=== PATIENT | female | born 1975 | race Caucasian/White ===

== ENCOUNTER 2018-08-29 11:23 | Inpatient (IN) | payer OTHER ==
[2018-08-29] VITALS (22 sets, daily range): BP systolic 85–150; BP diastolic 53–88
[~2018-08-29] VITALS: Ht 165.1 cm; Wt 77.3 kg
[2018-08-29 11:51] LABS: BE(vivo) 8.2 mmol/L (-2 to +3); HCO3 38.6 mmol/L (22.0-26.0); PCO2 88.3 mmHg (35.0-45.0); PO2 418.5 mmHg (80.0-100.0); pH 7.259 (7.360-7.450); sO2 99.8 % (92.0-98.0)
[2018-08-29 12:03] LABS: ABSOLUTE NEUTROPHILS 6.9 thou/uL (1.4-8.2); BASOPHILS 0.5 % (0.0-2.0); HEMATOCRIT 38.5 % (37.0-47.0); HEMOGLOBIN 12.5 gm/dL (12.0-15.0); LYMPHOCYTES 5.4 % (24.0-44.0); MCH 28.9 pg (26.0-34.0); MCHC 32.4 g/dL (28.0-37.0); MCV 89.2 fL (80.0-100.0); MONOCYTES 7.3 % (1.0-8.0); PLATELET COUNT 269 thou/uL (150-400); POLYS 86.8 % (36.0-66.0); RBC 4.32 mil/uL (4.20-5.00); RDW 17.7 % (10.5-14.5)
[2018-08-29 12:10] LABS: ANION GAP 3 mmol/L (7-16); BUN 8 mg/dL (7-18); CALCIUM 9.2 mg/dL (8.5-10.1); CHLORIDE 94 mmol/L (98-107); CO2 40 mmol/L (21-32); CREATININE 0.5 mg/dL (0.6-1.0); GLUCOSE 154 mg/dL (74-106); SODIUM 137 mmol/L (136-145)
[2018-08-29 12:18] LABS: TROPONIN-I <0.06 ng/mL (<0.06)
[2018-08-29 13:36] LABS: BE(vivo) 13.8 mmol/L (-2 to +3); HCO3 43.1 mmol/L (22.0-26.0); PCO2 81.1 mmHg (35.0-45.0); PO2 72.1 mmHg (80.0-100.0); pH 7.343 (7.360-7.450); sO2 92.8 % (92.0-98.0)
[2018-08-29] MEDS ORDERED: INCRUSE ELLI62.5 MCG INH (15:21)
[2018-08-29] MEDS ORDERED: GABAPENTIN 100100 MG PO (15:22)
[2018-08-29] MEDS ORDERED: ROXICODONE5 M2 PO (15:23)
[2018-08-29] MEDS ORDERED: AMBIEN 10 MG TA10 MG PO (15:32)
--- NOTE | 2018-08-29 17:16 | EKG ---
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 : 1975 Requested By: James Mares Order Number: [id number] MD: Placido Ramires Measurements Intervals [place] Rate: 113 P: 78 DC: 124 QRS: -10 QRSD: 93 T: 62 QT: 331 QTc: 454 Interpretive Statements Sinus tachycardia No previous ECG available for comparison Electronically Signed On 08-29-2018 17:16:31 CDT by Placido Ramires [email or web address] ��������������������������������������������� <ELECTRONICALLY SIGNED> ���������������������������������������� By: Placido Ramires MD ��������������������������������������������� 08/29/18 1716 1125 1125 Placido Ramires MD /MITZY
[2018-08-30] VITALS (37 sets, daily range): BP systolic 91–174; BP diastolic 57–110
[2018-08-30 05:06] LABS: HEMATOCRIT 33.7 % (37.0-47.0); HEMOGLOBIN 10.9 gm/dL (12.0-15.0); MCH 28.9 pg (26.0-34.0); MCHC 32.4 g/dL (28.0-37.0); MCV 89.2 fL (80.0-100.0); RBC 3.77 mil/uL (4.20-5.00); RDW 17.9 % (10.5-14.5)
[2018-08-30 05:20] LABS: CALCIUM 8.9 mg/dL (8.5-10.1); CREATININE 0.6 mg/dL (0.6-1.0); POTASSIUM 3.5 mmol/L (3.5-5.1)
--- NOTE | 2018-08-30 05:42 | NUR ---
ASSUMED PT CARE AT 1900 WITH NO SIGN OF DISTRESS NOTED IN PT. PT IS SLEEPING AND RESTING COMFORTABLY. PT IS ON BIPAP AND WILL CONTINUE TO MONITOR FOR ANY SIGN OF RESPIRATORY DISTRESS. SCHEDULED MEDS ADMINSTERED TO PT. PT CONTINUES TO BE ON BIPAP THROUGHOUT THE NIGHT. DENIES ANY NEEDS AT THIS TIME.
--- NOTE | 2018-08-30 14:26 | NUR ---
CM ASSESSMENT: CASE OPENED FOR DC PLANNING. CLINICAL INFO REVIEWED. PT ADMIT WITH COPD EXACERBATION AND CURRENTLY ON CONTINUOUS BIPAP WITH HIGH CO2. MET WIHT PT WHO IS ALERT AND ORINIENTED X4 AND ABLE TO COMMUNICATE THRU BIPAP. PT STATES SHE LIVES IN AL APT AT [facility], JUST MOVED IN 08/22/18. PT INDICATES SHE WAS LIVING IN HOME WITH S.O. BUT HE 03/2018. PT'S MOTHER ALSO APPROX A YEAR AGO. INDEPENDENT WITH ADLS, USES HME NOC O2 2 L NC AND CANE. NOT SURE ABOUT HH. PT IS MEDICALLY DISABLED FROM PTSD, BIPOLAR II, AND COPD AND HAS CASEWORKED THRU REDISCOVER NAMED KAMI [phone]. VM LEFT FOR TRANSMISSION AND PROTECTION ENGINEER WITH CM CONTACT. UPDATE TO CARMELO AT [facility] AND SPOKE WITH MARC AT [facility] RCF. PT/OT ORDERED. MAY NEED SKILELD STAY IF HAS DAYS AVAILABLE THRU MEDICARE BENEFIT. NO WEEKEND DC PER HOSPITALIST.
--- NOTE | 2018-08-30 18:21 | NUR ---
Assumed care of patient at 0700. Patient is awake through the day, somewhat restless with bipap but able to keep it in place. Requests frequent breaks for drinks and food, however desats quickly; only tolerating about 5-10 minutes off bipap. Loose cough with little to no sputum production. C/o chronic pain to hips and shoulders. No family at bedside today. Continue to monitor.
--- NOTE | 2018-08-30 23:45 | NUR ---
Assumed care of this pt at 2300. She is currently on BIPAP due to respiratory distress. Labor breathing notes. RR in high 20's at rest. She is able to maintain her O2 sat at this time. She appears to be very anxious upon my assessment. This RN discussed with pt regarding her code status. She is agreed to be intubate if her breathing became worsen. Will continue to monitor her closely.
--- NOTE | 2018-08-30 23:59 | NUR ---
REPORT GIVEN TO SONA RN AT 9647
[2018-08-31] VITALS (77 sets, daily range): BP systolic 84–151; BP diastolic 54–106
--- NOTE | 2018-08-31 00:10 | NUR ---
Pt became more restless and agitated. Increasing WOB and SOA. RR in mid 30's. O2 sat mid 90's on BIPAP. Lung sound more wheezing all over lung field.Will obtain ABG stat.
[2018-08-31 00:25] LABS: BE(vivo) 15.3 mmol/L (-2 to +3); HCO3 48.2 mmol/L (22.0-26.0); PCO2 120.1 mmHg (35.0-45.0); PO2 87.9 mmHg (80.0-100.0); pH 7.221 (7.360-7.450); sO2 93.8 % (92.0-98.0)
--- NOTE | 2018-08-31 01:30 | NUR ---
This RN called result of Abnormal ABG to ; order to intubate pt. Will notify ER physician to assist with intubation.
--- NOTE | 2018-08-31 01:40 | NUR ---
Notified who listed as pt's represent regarding of her condition became detoriorates. She is awares of procedure.
[2018-08-31 01:44] LABS: BE(vivo) 8.9 mmol/L (-2 to +3); HCO3 39.8 mmol/L (22.0-26.0); PO2 85.9 mmHg (80.0-100.0); sO2 93.9 % (92.0-98.0)
[2018-08-31 01:45] LABS: PCO2 97.9 mmHg (35.0-45.0); pH 7.227 (7.360-7.450)
[2018-08-31 02:23] LABS: HEMATOCRIT 35.9 % (37.0-47.0); HEMOGLOBIN 11.3 gm/dL (12.0-15.0); MCH 28.7 pg (26.0-34.0); MCHC 31.4 g/dL (28.0-37.0); MCV 91.6 fL (80.0-100.0); RBC 3.93 mil/uL (4.20-5.00); RDW 18.1 % (10.5-14.5); WBC 7.3 thou/uL (4.0-11.0)
[2018-08-31 02:38] LABS: CALCIUM 8.8 mg/dL (8.5-10.1); CREATININE 0.4 mg/dL (0.6-1.0)
[2018-08-31 02:42] LABS: POTASSIUM 4.8 mmol/L (3.5-5.1)
--- NOTE | 2018-08-31 04:00 | NUR ---
THIS RN CONTACTED [facility] STAFF REGARDING OF HER MEDICAL RECORDS AND MED LISTS. WILL UPDATES INFOMATION ONCE THEY FAX INFORMATION TO ME.
[2018-08-31 04:47] LABS: CALCIUM 9.2 mg/dL (8.5-10.1); CREATININE 0.6 mg/dL (0.6-1.0); MAGNESIUM 1.9 mg/dL (1.8-2.4)
[2018-08-31] MEDS ORDERED: CYMBALTA60 MG PO (05:31)
[2018-08-31] MEDS ORDERED: CHLORTHALIDONE25 MG PO (05:31)
[2018-08-31] MEDS ORDERED: AVAPRO 150 MG150 M1 PO (05:31)
[2018-08-31] MEDS ORDERED: ZYPREXA20 MG PO (05:32)
--- NOTE | 2018-08-31 07:00 | NUR ---
Pt remains stable . Continue to be on vent and lightly sedated with propofol gtt. Able to wean down FiO2 to 30% this am. RT will obtain ABG later on this am.
[2018-08-31 07:31] LABS: BE(vivo) 12.4 mmol/L (-2 to +3); HCO3 40.1 mmol/L (22.0-26.0); PCO2 68.1 mmHg (35.0-45.0); PO2 69.2 mmHg (80.0-100.0); pH 7.388 (7.360-7.450)
--- NOTE | 2018-08-31 07:32 | NUR ---
THIS RN ATTEMPTED TO REACH HER BROTHER WHO LISTED HER DPOA. NUMBERS PROVIDED FROM ND IT WAS PUT IN INCORRECTLY. 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 SHE COULDN'T PROVIDE HIS NUMBER EITHER. UPDATES AM SHIFT RN ABOUT MY ACTIONS.
[2018-08-31 12:43] LABS: BE(vivo) 13.8 mmol/L (-2 to +3); HCO3 43.2 mmol/L (22.0-26.0); sO2 94.6 % (92.0-98.0)
[2018-08-31 12:44] LABS: PCO2 84.4 mmHg (35.0-45.0); pH 7.327 (7.360-7.450)
--- NOTE | 2018-08-31 13:59 | NUR ---
Per patient's request, this RN contacted patient's father via phone, Ha Jolynn Lamb. Updated on patients condition including needing to be intubated last night. He provided information that patient has been hospitalized more than 20 times in the last year at [facility], including [facility], [facility], and [facility]. She has needed to be intubated in the past. He states he just lost his (patient's mother) and is unable to visit today. Patient has also been followed by [facility] in [facility], as well as [facility]. Will obtain medical records per MD requests. Continue to monitor.
--- NOTE | 2018-08-31 20:01 | NUR ---
Assumed care of patient at 0700. Patiend intubated overnight. Remains on vent for day shift, no weaning. Increased propofol and adding PRN morphine for comfort. Urine output fair, dark yellow/tea colored. Goal to let patient rest. Continue to monitor.
[2018-09-01] VITALS (45 sets, daily range): BP systolic 88–125; BP diastolic 56–86
[2018-09-01 05:06] LABS: HEMATOCRIT 33.2 % (37.0-47.0); HEMOGLOBIN 10.8 gm/dL (12.0-15.0); MCH 29.1 pg (26.0-34.0); MCHC 32.3 g/dL (28.0-37.0); MCV 90.1 fL (80.0-100.0); RBC 3.69 mil/uL (4.20-5.00); RDW 17.9 % (10.5-14.5); WBC 4.8 thou/uL (4.0-11.0)
[2018-09-01 05:13] LABS: CALCIUM 9.3 mg/dL (8.5-10.1); CREATININE 0.5 mg/dL (0.6-1.0); POTASSIUM 4.1 mmol/L (3.5-5.1)
[2018-09-01 05:36] LABS: BE(vivo) 12.4 mmol/L (-2 to +3); HCO3 40.7 mmol/L (22.0-26.0); PO2 69.4 mmHg (80.0-100.0); pH 7.355 (7.360-7.450); sO2 92.4 % (92.0-98.0)
[2018-09-01 05:39] LABS: PCO2 74.5 mmHg (35.0-45.0)
--- NOTE | 2018-09-01 06:36 | NUR ---
No event tonight. Pt remains stable in this shift. See VS and assessments per electronics.
--- NOTE | 2018-09-01 16:54 | NUR ---
PATIENT ASSESSMENTS AND VITAL SIGNS DOCUMENTED. SHE IS ABLE TO NOD YES/NO TO SIMPLE QUESTIONS. SHE IS ABLE TO EXPRESS PAIN AND NOD YES/NO TO LOCATION. SHE FOLLOWS COMMANDS. WHEN LEFT ALONE, SHE RESTS. PLAN OF CARE IS TO CONTINUE TO MONITOR PATIENT VITAL SIGNS AND ASSESSMENTS, TURN Q2 HOURS, ORAL CARE Q2 HOURS, MONITOR FOR PAIN AND PAIN RELIEF. NURSE TO CONTINUE TO MONITOR PATIENT STATUS.
--- NOTE | 2018-09-01 17:37 | NUR ---
PATIENT SAT UP IN BED THEN LAID BACK DOWN AND STARTED TO DROP HER OXYGENATION LEVELS. NURSE NOTED THIS AND NOTIFIED RT. HE BAGGED HER AND HER OXYGENATIONS INCREASED. SHE WAS A TONE OF PURPLE, HOWEVER WITH BAGGING HER SHE RETURNED TO A MORE NORMAL COLOR. ET TUBE IS IN PLACE AT 23 AT THE LIP. EQUAL CHEST EXPANSION IS NOTED. HEART RATE INCREASED INTO THE 150 BPM. MORPHINE GIVEN TO SEE IF IT HELPS WITH HER AIR HUNGER AND RESPIRATORY RATE/RHYTHM, HEART RATE. BLOOD PRESSURE DOCUMENTED. NURSE TO CONTINUE TO MONITOR HER WHILE RT IS WITH HER ALSO.
[2018-09-01 18:10] LABS: BE(vivo) 7.5 mmol/L (-2 to +3); PCO2 80.4 mmHg (35.0-45.0); PO2 250.8 mmHg (80.0-100.0); pH 7.281 (7.360-7.450); sO2 99.4 % (92.0-98.0)
--- NOTE | 2018-09-01 19:54 | NUR ---
I have reviewed the documentation by Pravin Streeter from 09/01/18 07 to 09/01/181953 and I concur with it.
[2018-09-02] VITALS (23 sets, daily range): BP systolic 85–111; BP diastolic 52–75
[2018-09-02 05:16] LABS: HEMATOCRIT 29.9 % (37.0-47.0); HEMOGLOBIN 10.1 gm/dL (12.0-15.0); MCH 29.4 pg (26.0-34.0); MCHC 33.6 g/dL (28.0-37.0); MCV 87.5 fL (80.0-100.0); RBC 3.42 mil/uL (4.20-5.00); RDW 19.6 % (10.5-14.5); WBC 8.7 thou/uL (4.0-11.0)
[2018-09-02 05:20] LABS: BE(vivo) 9.7 mmol/L (-2 to +3); HCO3 37.7 mmol/L (22.0-26.0); PO2 85.2 mmHg (80.0-100.0); pH 7.345 (7.360-7.450); sO2 95.5 % (92.0-98.0)
[2018-09-02 05:21] LABS: PCO2 70.7 mmHg (35.0-45.0)
--- NOTE | 2018-09-02 06:00 | NUR ---
REMAINS INTUBATED And sedate WITH PROPOFL. BECOMES VERY RESTLESS AT TIMES. SINUS RHYTHM. RESTRAINED. AFEBRILE. DNR. 200 CC DARK BROWN SLUDGE URINE OUTPUT THIS SHIFT. WILL CONT TO MONITOR.
[2018-09-02 06:10] LABS: CREATININE 0.9 mg/dL (0.6-1.0); POTASSIUM 4.5 mmol/L (3.5-5.1)
--- NOTE | 2018-09-02 10:20 | 2DMMODE ---
[facility] [address] [place] [address] 2 D/M-MODE ECHOCARDIOGRAM Name: MIGUEL COLEMAN Room #: 240-P ADM IN M.R.#: [id number] ������������� Admission: 08/29/18 ������������� Attend Phys: Kamran Negrete MD Discharge: ��� ������������� ��� Date of : 71 Date of Service: 09/02/18 1020 �� Report #: [id number] �������� ��������������������������������������������[id number] THIS REPORT FOR: //name// APPROVED REPORT Study performed: 09/02/2018 08:43:24 EXAM: Comprehensive 2D, Doppler, and color-flow Echocardiogram Patient Location: ICU Room #: 240 Status: routine BSA: 1.84 HR: 70 bpm BP: 96/64 mmHg Rhythm: NSR Other Information Study Quality: Adequate Indications COPD SOA, r/o valvular disease 2D Dimensions RVDd: 37.61 mm IVSd: 9.42 (7-11mm) LVOT Diam: 20.79 (18-24mm) LVDd: 39.89 mm PWd: 10.24 (7-11mm) LVDs: 32.30 (25-40mm) Aortic Root: 26.40 mm IVC: 17.00 mm Volumes Left Atrial Volume (Systole) Single Plane 4CH: 37.34 mL Single Plane 2CH: 32.40 mL LA ESV Index: 21.00 mL/m2 Aortic Valve AoV Peak Nilesh.: 1.16 m/s AO Peak Gr.: 5.39 mmHg LVOT Max P.35 mmHg LVOT Max V: 0.91 m/s KAT Vmax: 2.67 cm2 Mitral Valve E/A Ratio: 0.8 MV Decel. Time: 246.74 ms [facility] [address] [place] [address] 2 D/M-MODE ECHOCARDIOGRAM Name: MIGUEL COLEMAN Room #: 240-P [facility] IN ..#: [id number] ������������� Admission: 08/29/18 ������������� Attend Phys: Kamran Negrete MD Discharge: ��� ������������� ��� Date of : 71 Date of Service: 09/02/18 1020 �� Report #: [id number] �������� ��������������������������������������������[id number] MV E Max Nilesh.: 0.65 m/s MV A Nilesh.: 0.80 m/s MV PHT: 71.55 ms IVRT: 92.27 ms Pulmonary Valve PV Peak Nilesh.: 0.86 m/s PV Peak Gr.: 2.94 mmHg Tricuspid Valve TR Peak Nilesh.: 2.71 m/s RAP Estimate: 10.00 mmHg TR Peak Gr.: 29.31 mmHg PA Pressure: 39.00 mmHg Left Ventricle The left ventricle is normal size. There is normal left ventricular wall thickness. Left ventricular systolic function is mildly decreased. LVEF is 40-45%. Mild diastolic dysfunction is present (impaired relaxation pattern). Right Ventricle Right ventricle is mildly dilated. Right ventricle is mildly hypokinetic. Atria The left atrium size is normal. The right atrium size is normal. Aortic Valve The aortic valve is normal in structure. No aortic regurgitation is present. There is no aortic valvular stenosis. Mitral Valve The mitral valve is normal in structure. There is no mitral valve regurgitation noted. No evidence of mitral valve stenosis. Tricuspid Valve The tricuspid valve is normal in structure. Trace to mild tricuspid regurgitation. PAP is estimated at 39 mmHg. Pulmonic Valve The pulmonary valve is normal in structure. There is no pulmonic valvular regurgitation. Great Vessels The aortic root is normal in size. IVC is normal in size and collapses <50% with inspiration. [facility] [address] [place] [address] 2 D/M-MODE ECHOCARDIOGRAM Name: MIGUEL COLEMAN Room #: 240-P ADM IN M.R.#: [id number] ������������� Admission: 08/29/18 ������������� Attend Phys: Kamran Negrete MD Discharge: ��� ������������� ��� Date of : 71 Date of Service: 09/02/18 1020 �� Report #: [id number] �������� ��������������������������������������������[id number] Pericardium There is no pericardial effusion. <Conclusion> The left ventricle is normal size. LVEF is 40-45%. Right ventricle is mildly dilated. Right ventricle is mildly hypokinetic. The aortic valve is normal in structure. The mitral valve is normal in structure. The tricuspid valve is normal in structure. Trace to mild tricuspid regurgitation. PAP is estimated at 39 mmHg. The pulmonary valve is normal in structure. There is no pericardial effusion. ��������������������������������������������� <ELECTRONICALLY SIGNED> ���������������������������������������� By: Jose Juan Sampson MD ��������������������������������������������� 09/02/18 1020 1020 1020 Jose Juan Sampson MD /INF
--- NOTE | 2018-09-02 15:37 | NUR ---
Patient family updated today as they inquired. Assessments and vital signs as documented. Oral care performed. She is able to nod if she is in pain or not. She is able to follow commands intermittently. Plan of care is to continue to monitor patient vital signs, assessments, and weaning trial. She have very shallow respirations during cpap trial and turned dark red/blue during it. She was working to breath. Nurse to continue to monitor patient status.
--- NOTE | 2018-09-02 16:17 | NUR ---
PT. RESIDES AT [facility] FAXED CLINICAL UPDATE TO FACILITY LEFT MS WITH CARMELO IN ADM, THAT UPDATE FAXED. DCP TO FOLLOW.
--- NOTE | 2018-09-02 20:45 | NUR ---
GCS 10. OPENS EYES TO VOICE, NONVERBAL D/T ET TUBE. FC, WIGGLES TOES, FOOD SERVICE MANAGER HANDS, AND ANSWERS SIMPLE Y/N QUESTIONS WHEN SEDATION DECREASED. WHEN PT NOT ADEQUATELY SEDATED, RESPIRATORY EFFORT INCREASES. BUE RESTRAINTS. SINUS RHYTHM ON MONITOR. HYPOTENSIVE AT TIMES. LUNGS DIMINISHED TO AUSCULTATION. VITAL SIGNS AND ASSESSMENTS DOCUMENTED. WILL CONTINUE TO MONITOR.
[2018-09-03] VITALS (51 sets, daily range): BP systolic 79–157; BP diastolic 48–91
[2018-09-03 05:16] LABS: HEMATOCRIT 29.6 % (37.0-47.0); HEMOGLOBIN 9.6 gm/dL (12.0-15.0); MCHC 32.5 g/dL (28.0-37.0); MCV 89.3 fL (80.0-100.0); RBC 3.32 mil/uL (4.20-5.00); RDW 17.3 % (10.5-14.5); WBC 4.9 thou/uL (4.0-11.0)
[2018-09-03 05:23] LABS: CREATININE 0.6 mg/dL (0.6-1.0); POTASSIUM 3.9 mmol/L (3.5-5.1)
[2018-09-03 11:47] LABS: BE(vivo) 13.7 mmol/L (-2 to +3); PO2 92.3 mmHg (80.0-100.0); pH 7.372 (7.360-7.450); sO2 96.5 % (92.0-98.0)
[2018-09-03 12:00] LABS: PCO2 73.9 mmHg (35.0-45.0)
--- NOTE | 2018-09-03 18:29 | NUR ---
PT CONT ON VENT, CPAP TRIAL FOR 3 HOURS, CO2 CONT TO BE ELEVATED, PT PUT BACK ON ASSIST CONTROL. PROPOFOL REMAINS FOR SEDATION, PT FOLLOWS COMMANDS AND ANSWERS Y/N QUESTIONS. PT HAD ONE LARGE MUCOUS STOOL. OG TO LIS.
--- NOTE | 2018-09-03 21:10 | NUR ---
GCS 10. OPENS EYE TO VOICE, MOUTHS WORDS ABLE, FOLLOWS COMMANDS. ORIENTED TO PERSON AND SITUATION. SEDATION WITH PROPOFOL. PT IS CALM AND COOPERATIVE. DOES NOT PULL ON/INTERFERE WITH LINES AND ET TUBE. SINUS RHYTHM ON MONITOR. HYPOTENSIVE. LARGE VOLUME CLEAR ORAL SECRETIONS. FREQUENT ORAL SUCTION REQUIRED. SOA WITH MILD EXERTION. GARCÍA TO DD. SEDIMENT NOTED. VITAL SIGNS AND ASSESSMENTS DOCUMENTED. WILL CONTINUE TO MONITOR.
[2018-09-04] VITALS (41 sets, daily range): BP systolic 81–165; BP diastolic 52–101
[2018-09-04 04:34] LABS: BE(vivo) 15.2 mmol/L (-2 to +3); HCO3 41.7 mmol/L (22.0-26.0); PCO2 63.7 mmHg (35.0-45.0); PO2 102.9 mmHg (80.0-100.0); pH 7.434 (7.360-7.450); sO2 97.7 % (92.0-98.0)
[2018-09-04 05:25] LABS: HEMATOCRIT 30.7 % (37.0-47.0); HEMOGLOBIN 9.9 gm/dL (12.0-15.0); MCH 28.8 pg (26.0-34.0); MCHC 32.2 g/dL (28.0-37.0); MCV 89.5 fL (80.0-100.0); PLATELET COUNT 196 thou/uL (150-400); RBC 3.43 mil/uL (4.20-5.00); RDW 17.5 % (10.5-14.5); WBC 5.5 thou/uL (4.0-11.0)
[2018-09-04 05:36] LABS: ALBUMIN 2.7 g/dL (3.4-5.0); ANION GAP < 0 mmol/L (7-16); BUN 23 mg/dL (7-18); CALCIUM 8.7 mg/dL (8.5-10.1); CHLORIDE 104 mmol/L (98-107); CO2 41 mmol/L (21-32); CREATININE 0.6 mg/dL (0.6-1.0); GLUCOSE 118 mg/dL (74-106); POTASSIUM 3.4 mmol/L (3.5-5.1); SGOT 25 U/L (15-37); SGPT 60 U/L (30-65); SODIUM 144 mmol/L (136-145); TOTAL BILIRUBIN 0.2 mg/dL (<0.1-1.0); TOTAL PROTEIN 5.7 g/dL (6.4-8.2)
[2018-09-04 07:55] LABS: ABSOLUTE NEUTROPHILS 3.6 thou/uL (1.4-8.2)
[2018-09-04 07:56] LABS: ANISOCYTOSIS 1+; METAMYELOCYTES 1 %
[2018-09-04 11:10] LABS: BE(vivo) 11.8 mmol/L (-2 to +3); HCO3 39.3 mmol/L (22.0-26.0); PO2 74.8 mmHg (80.0-100.0); pH 7.377 (7.360-7.450); sO2 94.2 % (92.0-98.0)
[2018-09-04 11:11] LABS: PCO2 68.4 mmHg (35.0-45.0)
--- NOTE | 2018-09-04 12:42 | NUR ---
PT EXTUBATED AT 1130, ON FACE SHIELD 50%, TOLERATING WELL. PT DOES DESAT WITH MOVEMENT AND PULLS FACE SHIELD DOWN AT TIMES. PT'S FATHER CALLED AND UPDATED. PT CONT TO HAVE LOOSE STOOLS
--- NOTE | 2018-09-04 14:12 | NUR ---
FOLLOWING FOR DC PLANNING. CLINICAL INFO REVIEWED. PT INTUBATED 08/31 AND ABLE TO BE EXTUBATED TODAY. ALERT AND ORIENTED X4. MET WITH PT THIS AM. KAMI, HER REDISCOVER EMR ANALYST UPDATED AND HERE TODAY TO VISIT. CARMELO AT [facility] UPDATED. PT/OT ORDERED. PT FROM Kymberly AT [facility], JUST MOVED IN A WEEK PRIOR TO ADMIT. WILL LIKELY NEED REHAB, ACUTE VS SKILLED PRIOR TO RETURN.
--- NOTE | 2018-09-04 16:07 | NUR ---
PT HAVING INCREASED WORK OF BREATHING. SARAH AWARE. ABG ORDERED, AWAITING RESULTS
[2018-09-04 16:15] LABS: BE(vivo) 11.1 mmol/L (-2 to +3); HCO3 44.7 mmol/L (22.0-26.0); PO2 87.7 mmHg (80.0-100.0); sO2 92.7 % (92.0-98.0)
[2018-09-04 16:17] LABS: PCO2 129.2 mmHg (35.0-45.0); pH 7.157 (7.360-7.450)
--- NOTE | 2018-09-04 16:54 | NUR ---
ABG RESULTS CALLED TO DR SMITH. PT APPLIED ON BIPAP. DR SMITH AT BEDSIDE. PT IS LETHARGIC AND MINIMALLY RESPONSIVE
[2018-09-04 21:32] LABS: BE(vivo) 14.6 mmol/L (-2 to +3); HCO3 42.8 mmol/L (22.0-26.0); PO2 111.5 mmHg (80.0-100.0); pH 7.366 (7.360-7.450); sO2 97.7 % (92.0-98.0)
[2018-09-04 21:33] LABS: PCO2 76.5 mmHg (35.0-45.0)
[2018-09-05] VITALS (22 sets, daily range): BP systolic 95–155; BP diastolic 59–90
--- NOTE | 2018-09-05 04:30 | NUR ---
ASSUMED CARE OF PT. AT 1900. PT. GCS IS 15 ALERT AND ORIENTED X4. FOLLOWS COMMANDS AND MOVES ALL EXTREMITIES. PT. IS ON BIPAP IN AVAPS MODE, TOLERATING WELL, SATS ABOVE 95% THROUGHOUT SHIFT. CRITICAL LAB CALLED TO DR. SMITH, ORDERS GIVEN. FIO2 CHAGED TO 40%. PT. SHOWS BRADYCARDIA WHEN ASLEEP. ASSESSMENTS AND VITAL SIGNS CHARTED. PT. IS ABLE TO COMMUNICATE WELL AND HAS BEEN PLEASENT THROUGHOUT SHIFT. ORAL CARE DONE Q2H PER PT. REQUEST. PLAN OF CARE IS TO CONTINUE TO MONITOR OXYGENATION STATUS OF PT. WILL CONTINUE TO MONITOR.
[2018-09-05 07:35] LABS: BE(vivo) 12.9 mmol/L (-2 to +3); HCO3 40.2 mmol/L (22.0-26.0); PO2 88.9 mmHg (80.0-100.0); pH 7.391 (7.360-7.450); sO2 96.4 % (92.0-98.0)
[2018-09-05 07:36] LABS: PCO2 67.7 mmHg (35.0-45.0)
--- NOTE | 2018-09-05 10:03 | NUR ---
PT TAKEN OFF BIPAP AND PLACED ON HIGH FLOW NC AND TOLERATING WELL. TOLERATED CLEAR LIQUID DIET THIS AM AND WILL ADVANCE DIET.
--- NOTE | 2018-09-05 12:34 | NUR ---
PT HAD LOOSE BM IN BED PLACE [facility]. THEN RETURN PT BACK TO BED ON HIFLOW NC.
--- NOTE | 2018-09-05 12:41 | NUR ---
ASSESS PT WITH RT FLACA SHE WILL INFORM DR. JONES THAT WE WILL PLACE PT BACK ON AVAPS AFTER LUNCH SO PT CAN REST. PT APPEARS TO BE USING ACCESSORY MUSCLES MORE. WILL CONTINUE TO ASSESS.
--- NOTE | 2018-09-05 13:00 | NUR ---
PT BACK ON AVAPS.
--- NOTE | 2018-09-05 16:08 | NUR ---
PT ON OPTIFLOW AT THIS TIME TOLERATING WELL. BEDSIDE REPORT GIVEN TO CARL THORNOTN.
--- NOTE | 2018-09-05 19:33 | NUR ---
ASSUMED PT CARE FROM HILLARY LOZANO AT 1645.
[2018-09-06] VITALS (17 sets, daily range): BP systolic 82–162; BP diastolic 47–109
--- NOTE | 2018-09-06 05:37 | NUR ---
PT RESTING IN BED. ABLE TO SLEEP OFF AND ON THROUGHOUT SHIFT WITH NEED FOR PAIN AND ANTI ANXIETY MEDS. PT SR/SB ON MONITOR. PT CONTINUES WITH MAINTENANCE IVFs. PT AFEBRILE AND VSS. PT ON BIPAP DURING MOST OF THE SHIFT AND TOLERATED.
--- NOTE | 2018-09-06 10:34 | NUR ---
Pt remains on bipap in ICU. No weekend dc anticipated. [facility] have [facility] bed for her at [facility]. Will follow.
[2018-09-07 00:08] VITALS: BP 103/75
--- NOTE | 2018-09-07 05:08 | NUR ---
demanding and frequently wants the bipap off at night so that she can eat crackers and soda. refuses water only drinks soda. frequently, asking for additional items to be attended to as the first task is still needing be be completed. she is forgetful and impatient. careplan reviewed. prgressing toward discharge goals
[2018-09-07 12:08] VITALS: BP 155/109
--- NOTE | 2018-09-07 12:11 | NUR ---
SUMMARY: ALERT AND ORIENTED AND VITALS STABLE, CONTINUES TO USE OPTIFLOW DURING THE DAY AND BIPAP AT HS. UP TO THE CHAIR WITH MINIMAL ASSISTANCE AND USING BSC APPROPRIATELY. GARCÍA DC'D THIS MORNING AND PATIENT HAS HAD 2 EPISODES OF INCONTINENCE. TOLERATING DIET WELL. HAS DENIED NAUSEA OR PAIN. ORDERS RECEIVED TO TRANSFER TO [facility] AND PATIENT TRANSFERRED TO 203 WITH BELONGINGS (PURSE, TENNIS SHOES AND CLOTHES).
[2018-09-07 16:02] VITALS: BP 149/106
--- NOTE | 2018-09-07 17:57 | NUR ---
ASSUMED CARE AT 1300, SHIFT ASSESSMENT DONE. TRANFER FROM ICU. VSS. REPORTED PAIN, PRN PAIN MED GIVEN. ON IV ANTIBIOTICS. ON OPTIFLOW, 35% FI02, 40 L, TOLERATING WELL, BIPAP AT NIGHT. UP WITH A 1 PERSON ASSIST TO THE BEDSIDE COMMODE. VERY SOB WITH ACTIVITY. INTONTINENCE AT TIMES AFTER GARCÍA WAS TAKEN OUT THIS AM. WILL CONTINUE TO ASSESS AND ASSIST WITH ADLs NEEDED.
[2018-09-07 19:20] VITALS: BP 142/85
[2018-09-08 04:17] VITALS: BP 140/91
--- NOTE | 2018-09-08 06:45 | NUR ---
ASSESSMENT DOCUMENTED.PT RESTING IN NO ACUTE DISTRESS.ON BIPAP WHILE SLEEPING.ON OPTIFLOW WHILE UP.SATS HAVE BEE ADEQUATE.DENIES SOA OR RESPIRATORY DISTRESS.VSS.PAIN MEDS ADMINISTERED PER DR'S ORDERS.NO CONCERNS VOICED AT THIS TIME.POC IS TO [facility] TO [facility] WHILE STABLE.
[2018-09-08 07:32] VITALS: BP 128/90
[2018-09-08 15:16] VITALS: BP 130/85
--- NOTE | 2018-09-08 17:15 | NUR ---
ASSUMED CARE OF PATIENT AT 0700, ALERT AND ORIENTED. NO COMPLIANTS OF NAUSEA OR VOMITING. STILL HAVING SHOULDER AND HIP PAIN, TRAMADOL NOT EFFECTIVE BUT SHE WANTS TO TRY IT AGAIN THIS MORNING. GIVEN AND SOME RELIEF OBTAINED. CONTINUES WITH OXYCONTIN WELL. OOB TO CHAIR X 3 HOURS. DIMINISHED LUNG SOUNDS THROUGHOUT, OPTIFLOW AT 40L AND 35% FIO2. NO SIGNIFICANT EVENTS THIS SHIFT.
[2018-09-08 19:41] VITALS: BP 97/55
[2018-09-08 19:46] VITALS: BP 101/55
[2018-09-08 19:55] VITALS: BP 134/87
[2018-09-09 03:03] LABS: HEMATOCRIT 33.9 % (37.0-47.0); HEMOGLOBIN 11.1 gm/dL (12.0-15.0); MCH 29.2 pg (26.0-34.0); MCHC 32.8 g/dL (28.0-37.0); MCV 88.9 fL (80.0-100.0); RBC 3.81 mil/uL (4.20-5.00); RDW 16.7 % (10.5-14.5); WBC 10.2 thou/uL (4.0-11.0)
[2018-09-09 03:14] LABS: CALCIUM 8.9 mg/dL (8.5-10.1); CREATININE 0.6 mg/dL (0.6-1.0); MAGNESIUM 1.9 mg/dL (1.8-2.4); POTASSIUM 4.6 mmol/L (3.5-5.1)
--- NOTE | 2018-09-09 03:59 | NUR ---
ASSUMED CARE 1900. VSS. ASSESSMENT CHARTED. A&OX44. PT C/O GEN HIP AND SHOULDER PAIN CONTROLED WITH PRN PAIN MEDS. TOLERATING BIPAP MOST OF NIGHT. DENIES CP, N/V, DIZZINESS. UP X1 TO COMMOD, X1 INCONTINENCE URGENCY. WILL CONTINUE TO MONITOR AND WIHT POC.
[2018-09-09 04:55] VITALS: BP 144/86
[2018-09-09 07:21] VITALS: BP 134/76
--- NOTE | 2018-09-09 09:58 | NUR ---
Followup: extubated, transferred out of ICU. Tolerating po intake well. Change nutrition status to low risk.
[2018-09-09 11:51] VITALS: BP 161/95
[2018-09-09 15:24] VITALS: BP 149/80
--- NOTE | 2018-09-09 16:06 | NUR ---
met with patient and discussed dc planning. Patient resides at [facility] in Assisted living. She is interested in transition to [facility] for post acute care. Referral to facility for review.
--- NOTE | 2018-09-09 16:27 | NUR ---
FAXED REFERRAL TO [facility] FOR SKILLED STAY LEFT MSG WITH CARMELO IN ADM, THAT PT RESIDES AT THEIR AL UNIT AND WILL NEED SKILLED AT DC, DCP TO FOLLOW.
[2018-09-09 19:30] VITALS: BP 157/98
--- NOTE | 2018-09-10 03:37 | NUR ---
ASSUMED CARE 1899. VSS. ASSESSMENT CHARTED. PT SHOULDER/HIP PAIN CONTROLED WITH PRN PAIN MEDS SEE EMAR.ON NC 4 L, TOLERATED BIPAP FOR SEVERAL HOURS THEN REQUESTED TO BE TAKEN OFF, SEEN BY RT- PRN TREATMENTS. X1 ASSIST TO COMMOD. NO OTHER CONCERNS. SLEEPING ON AND OFF THROUGH OUT NIGHT. PT HOPEFUL TO D/C SOON. WILL CONTINUE TO MONITOR AND WITH POC.
[2018-09-10 04:08] VITALS: BP 157/84
[2018-09-10 08:03] VITALS: BP 129/92
--- NOTE | 2018-09-10 12:09 | NUR ---
I have reviewed the documentation by AYAN TURNER from 09/10/18 to 09/10/18 and I concur with it. FABIOLA FAITH
--- NOTE | 2018-09-10 13:42 | NUR ---
FAXED BIPAP SETTINGS TO [facility] FOR A BIPAP AT FACILITY SPOKE WITH CARMELO IN ADM, SHE RECEIVED SCRIPT. DCP TO FOLLOW.
--- NOTE | 2018-09-10 14:01 | NUR ---
patient is planning post acute care at [facility]. they are accepting of patient and holding her Assisted living apt. Patient reports she was just unpacking when she was admitted to [facility]. Phys gave script for BIPAP, dc traffic and transport planner faxed to facility to facilitate. patient rec [facility] HH detective captain. Updated [facility]. She reports she needs her oxygen tanks refilled as well updated [facility] to call patient to arrange and alerted she will be at rehab at [facility]. casemgt following.
[2018-09-10 15:12] VITALS: BP 153/112
--- NOTE | 2018-09-10 18:59 | NUR ---
ASSUMED CARE AT 0700, AWAKE AND ALERT IN BED, ON 4LNC. GOAL TODAY WILL BE TO AMBULATE IN HALLWAY. PT/OT WORKED WITH PATIENT TODAY AND SHE DID AMBULATE IN HALLWAY TWICE. TOLERATED FAIR, SOME SOB BUT RECOVERED EASILY. CODE STATUS CHANGED FROM NO CODE TO FULL CODE. INCIDENT REPORT PUT IN FOR MISSING PERSONAL ITEMS: GLASSES AND PULSE OXIMETER
[2018-09-10 20:00] VITALS: BP 158/101
[2018-09-11 03:12] VITALS: BP 152/97
--- NOTE | 2018-09-11 03:22 | NUR ---
ASSUMED CARE 1899. VSS. ASSESSMENT CHARTED. PT C/O SHOULDER/HIP PAIN, PRN PAIN MEDS PER EMAR. PT REQUESTING AMBIEN, TERRESTRIAL ECOLOGIST NOTIFIED, NO NEW ORDERS. PT TEARFUL FROM CALL FROM DAD EARLY IN SHIFT, PT STATES DAD MAD SHE CHANGED HER CODE STATUS TO FULL CODE. PT FREQUENT SNACKING THROUGHOUT NIGHT. X1 ASSIST TO BATHROOM. AMBULATED X1 ASSIST W/WALKER IN HALLS TWICE. NC 4L, REFUSED BIPAP TONIGHT AFTER REQUESTING IT. WILL CONTINUE TO MONITOR AND WITH POC.
[2018-09-11 07:04] VITALS: BP 146/89
[2018-09-11 11:46] VITALS: BP 156/111
[2018-09-11] MEDS ORDERED: IPRAT-ALBUT 0.5-3 ML INH (11:59)
[2018-09-11] MEDS ORDERED: PREDNISONE 10 M10 MG PO (11:59)
[2018-09-11] MEDS ORDERED: PEPCID20 MG PO (11:59)
[2018-09-11] MEDS ORDERED: NICOTINE1 EAC2 TRANSDERM (11:59)
--- NOTE | 2018-09-11 15:09 | NUR ---
PT DISCHARGING TODAY TO [facility] FAXED DC ORDERS/SUMMRY TO FACILITY SPOKE WITH LYNDA AND HE RECEIVED DC ORDERS AND ARRANGED TRANSPORTATION VIA [employer] [facility]. PT. NOTIFIED FAMILY OF TRANSPORT TIME. UNIT NOTIFIED AND CHART COPY PER US. RN TO CALL REPORT TO [phone].
--- NOTE | 2018-09-11 15:31 | NUR ---
ASSUMED PATIENT CARE AT 0830.A/O X4. NOTED NEED 4L/NC WHEN WALKING. PAIN MEDS GIVEN NEED. FORGETFUL. SLOWLY TOWARDS POC GOALS. WILL DC TO SNF AT 1530.
== END 2018-09-11 16:07 | DRG 208 ==
LOC: ER 11:23 → ICU 13:25 → EROBS 13:25 → ICU 15:54 → 2N 09-07 11:45
PROVIDERS: Emergency Medicine; Internal Medicine; Internal Medicine Pulmonary Disease; Pediatrics; ADMIT Hospitalist
PROC: 0BH17EZ Insertion of Endotracheal Airway into Trachea, Via Natural or Artificial Opening (ICD-10-PCS; principal; 2018-08-31)
PROC: 5A09357 Assistance with Respiratory Ventilation, Less than 24 Consecutive Hours, Continuous Positive Airway Pressure (ICD-10-PCS; principal; 2018-08-31)
PROC: 5A1945Z Respiratory Ventilation, 24-96 Consecutive Hours (ICD-10-PCS; principal; 2018-08-31)
DX: J96.21 Acute and chronic respiratory failure with hypoxia (principal); G92 Toxic encephalopathy; J44.1 Chronic obstructive pulmonary disease with (acute) exacerbation; E87.2 Acidosis; F11.20 Opioid dependence, uncomplicated; J96.22 Acute and chronic respiratory failure with hypercapnia; G89.4 Chronic pain syndrome; Z66 Do not resuscitate; F15.10 Other stimulant abuse, uncomplicated; Z79.899 Other long term (current) drug therapy; Z88.6 Allergy status to analgesic agent; Z88.8 Allergy status to other drugs, medicaments and biological substances; Z87.891 Personal history of nicotine dependence
CPT/HCPCS: 10078; 10081

== ENCOUNTER 2018-09-28 21:24 | Inpatient (IN) | payer OTHER ==
[~2018-09-28] VITALS: Ht 165.1 cm; Wt 78.2 kg
[~2018-09-28 21:24] MED LIST: AMBIEN 10 MG TA10 MG PO; AVAPRO 150 MG150 M1 PO; CHLORTHALIDONE25 MG PO; CYMBALTA60 MG PO; GABAPENTIN 100100 MG PO; INCRUSE ELLI62.5 MCG INH; IPRAT-ALBUT 0.5-3 ML INH; NICOTINE1 EAC2 TRANSDERM; PEPCID20 MG PO; PREDNISONE 10 M10 MG PO; ROXICODONE5 M2 PO; ZYPREXA20 MG PO
[2018-09-28 21:42] LABS: BE(vivo) 8.3 mmol/L (-2 to +3); HCO3 37.8 mmol/L (22.0-26.0); PCO2 82.7 mmHg (35.0-45.0); PO2 57.8 mmHg (80.0-100.0); sO2 84.9 % (92.0-98.0)
[2018-09-28 21:45] LABS: pH 7.278 (7.360-7.450)
[2018-09-28 21:57] LABS: URINE BILIRUBIN NEGATIVE (Negative); URINE BLOOD NEGATIVE (Negative); URINE CLARITY CLEAR; URINE COLOR YELLOW; URINE GLUCOSE-RANDOM* NEGATIVE (Negative); URINE KETONES NEGATIVE (Negative); URINE LEUKOCYTES-REFLEX NEGATIVE (Negative); URINE NITRITE-REFLEX NEGATIVE (Negative); URINE PROTEIN (DIPSTICK) NEGATIVE (Negative); URINE SPECIFIC GRAVITY <= 1.005 (1.005-1.035); URINE UROBILINOGEN 0.2 E.U./dl (0.2-1.0)
[2018-09-28 21:59] LABS: ABSOLUTE NEUTROPHILS 4.7 thou/uL (1.4-8.2); BASOPHILS 1.3 % (0.0-2.0); HEMATOCRIT 37.5 % (37.0-47.0); LYMPHOCYTES 18.4 % (24.0-44.0); MCH 28.9 pg (26.0-34.0); MCHC 32.1 g/dL (28.0-37.0); MCV 90.2 fL (80.0-100.0); MONOCYTES 5.7 % (1.0-8.0); PLATELET COUNT 256 thou/uL (150-400); POLYS 72.6 % (36.0-66.0); RBC 4.16 mil/uL (4.20-5.00); RDW 17.4 % (10.5-14.5); WBC 6.4 thou/uL (4.0-11.0)
[2018-09-28 22:06] LABS: ANION GAP 2 mmol/L (7-16); BUN 7 mg/dL (7-18); CALCIUM 9.1 mg/dL (8.5-10.1); CHLORIDE 101 mmol/L (98-107); CO2 40 mmol/L (21-32); CREATININE 0.6 mg/dL (0.6-1.0); GLUCOSE 118 mg/dL (74-106); POTASSIUM 3.9 mmol/L (3.5-5.1); SODIUM 143 mmol/L (136-145)
[2018-09-28 22:14] LABS: AMP/METHAMP Negative (Negative); BARBITURATES Negative (Negative); BENZODIAZEPINES Negative (Negative); COCAINE Negative (Negative); METHADONE Negative (Negative); OPIATES POSITIVE (Negative); PCP Negative (Negative)
[2018-09-28 22:15] LABS: TROPONIN-I <0.06 ng/mL (<0.06)
[2018-09-28 23:22] VITALS: BP 127/83
[2018-09-28 23:30] VITALS: BP 151/82
[2018-09-29] VITALS (37 sets, daily range): BP systolic 112–160; BP diastolic 65–111
[2018-09-29] MEDS ORDERED: TRAMADOL 50 MG50 MG (01:58)
--- NOTE | 2018-09-29 02:22 | NUR ---
PT ARRIVED ON UNIT AT 0015. LETHARGIC, BUT ABLE TO TRANSFER HERSELF FROM ED CART TO ICU BED (NONAMBULATORY, SCOOTED HERSELF). ORIENTED TO PERSON AND PLACE. WAKES BRIEFLY TO SOUND OR TOUCH BEFORE QUICKLY FALLING BACK ASLEEP. FOLLOWS COMMANDS AND ANSWERS QUESTIONS WHEN ALERT ENOUGH. PT IS CALM AT THIS TIME. NO RESTLESSNESS OR AGITATION. SINUS RHYTHM ON MONITOR. PT ON BIPAP. SETTINGS FOLLOWS: 18/6, RATE 18, FIO2 50%. O2 SAT > 92%. NO COUGH. LUNGS DIMINISHED TO AUSCULTATION. GARCÍA PLACED. ADEQUATE URINE OUTPUT. MOISTURE ASSOCIATED TO RITESH AREA. AFFECTED AREA IN THE SHAPE OF A MAXI PAD, WHICH PT USES AT FACILITY D/T URINARY INCONTINENCE. VITAL SIGNS AND ASSESSMENTS DOCUMENTED. WILL CONTINUE TO MONITOR.
[2018-09-29 05:11] LABS: CALCIUM 8.7 mg/dL (8.5-10.1); CREATININE 0.4 mg/dL (0.6-1.0)
[2018-09-29 05:15] LABS: BE(vivo) 12.5 mmol/L (-2 to +3); PCO2 68.2 mmHg (35.0-45.0); PO2 59.9 mmHg (80.0-100.0); pH 7.386 (7.360-7.450); sO2 89.6 % (92.0-98.0)
[2018-09-29 06:24] LABS: HEMATOCRIT 32.1 % (37.0-47.0); HEMOGLOBIN 10.4 gm/dL (12.0-15.0); MCH 29.1 pg (26.0-34.0); MCHC 32.4 g/dL (28.0-37.0); MCV 89.9 fL (80.0-100.0); RBC 3.57 mil/uL (4.20-5.00); RDW 16.8 % (10.5-14.5); WBC 3.9 thou/uL (4.0-11.0)
--- NOTE | 2018-09-29 08:25 | EKG ---
[address] [address] ELECTROCARDIOGRAM REPORT Name: MIGUEL COLEMAN Room #: 236-P ADM IN M.R.#: [id number] ������������������ Admission: 09/28/18 ������������������ Attend Phys: Kamran Negrete MD Discharge: ������������������ Date of : 71 Report #: [id number] ����������������������������������������������������������������� [id number] THIS REPORT FOR: //name// [facility] ED Test Date: 2018-09-28 Test Time: 21:27:51 Pat Name: MIGUEL COLEMAN Department: Room: 236 Gender: F [employer] Manager: MICHELL : 1975 Requested By: Dave Bryan Order Number: [id number] MD: Eliot Fernandez Measurements Intervals [place] Rate: 95 P: 72 IA: 124 QRS: 18 QRSD: 82 T: 58 QT: 350 QTc: 440 Interpretive Statements Sinus rhythm Compared to ECG 08/29/2018 11:25:39 Sinus tachycardia no longer present Electronically Signed On 09-29-2018 8:25:20 CDT by Eliot Fernandez [email or web address] ��������������������������������������������� <ELECTRONICALLY SIGNED> ���������������������������������������� By: Eliot Fernandez MD ��������������������������������������������� 09/29/18 0825 212 Eliot Fernandez MD /[email or web address]
--- NOTE | 2018-09-29 12:55 | NUR ---
ASSUMED CARE OF PT AT 1110 THIS SHIFT. PT HAS BEEN COOPERATIVE, HAS COMPLAINTS OF PAIN NOW AND IS ASKING FOR PAIN MEDICINE.
[2018-09-30] VITALS (37 sets, daily range): BP systolic 79–159; BP diastolic 47–100
--- NOTE | 2018-09-30 04:01 | NUR ---
NO NEW CHANGES. PT. HAS TRANSFER ORDERS FOR MED/SURG. HEARTRATE AND RHYTHM WITHIN NORMAL LIMITS. NO NEED FOR BIPAP OVERNIGHT. X1 BM. ADEQUATE URINARY OUTPUT AND APPETITE. WILL CONTINUE TO MONITOR.
[2018-09-30 05:53] LABS: HEMATOCRIT 30.7 % (37.0-47.0); HEMOGLOBIN 9.9 gm/dL (12.0-15.0); MCH 28.8 pg (26.0-34.0); MCHC 32.4 g/dL (28.0-37.0); MCV 89.1 fL (80.0-100.0); RBC 3.45 mil/uL (4.20-5.00); WBC 5.7 thou/uL (4.0-11.0)
[2018-09-30 06:03] LABS: CALCIUM 8.6 mg/dL (8.5-10.1); CREATININE 0.6 mg/dL (0.6-1.0); POTASSIUM 4.2 mmol/L (3.5-5.1)
--- NOTE | 2018-09-30 11:07 | NUR ---
PATIENT REMAINS A&O X 4, PLEASANT AND COOPERATIVE WITH CARES.C/O PAIN DESPITE PAIN MEDICATIONS BEING GIVEN. PATIENT STATES THAT SHE USUALLY TAKES OXY 5MG AT HOME FOR PAIN. PATIENT WAS EDUCATED ON THE REASON OF HER ADMISSION, PATIENT VERBILIZES UNDERSTANDING. PATIENT UP TO TOILET WITHOUT DIFFICULTY, BM NOTED. GREAT URINE OUTPUT. ORDERS RECEIVED TO DISCONTINUE GARCÍA, IT WAS REMOVED AT 1015 THIS AM. PATIENT HAS SINCE URINATED IN TOILET WITHOUT ISSUES. PATIENT LEFT EJ IV WAS ALSO REMOVED PER PATIENT REQUEST, STATING THAT IT WAS HURTING HER. GOOD APPETITE. PATIENT TO DISCHARGE BACK TO [facility] TODAY. NO OTHER CONCERNS AT THIS TIME. WILL CONTINUE TO MONITOR AND CARE PER PLAN OF CARE.
[2018-09-30] MEDS ORDERED: PREDNISONE 10 M10 MG PO (13:24)
[2018-09-30] MEDS ORDERED: TYLENOL325 MG PO (13:24)
[2018-09-30] MEDS ORDERED: PEPCID20 MG PO (13:30)
== END 2018-09-30 14:24 | DRG 189 ==
LOC: ER 21:24 → EROBS 22:58 → ICU 22:58
PROVIDERS: Emergency Medicine; Hospitalist; Nurse Practitioner Family; ADMIT Hospitalist
PROC: 5A09357 Assistance with Respiratory Ventilation, Less than 24 Consecutive Hours, Continuous Positive Airway Pressure (ICD-10-PCS; principal; 2018-09-29)
DX: J96.22 Acute and chronic respiratory failure with hypercapnia (principal); G93.40 Encephalopathy, unspecified; J44.1 Chronic obstructive pulmonary disease with (acute) exacerbation; J96.21 Acute and chronic respiratory failure with hypoxia; T40.605A Adverse effect of unspecified narcotics, initial encounter; F41.9 Anxiety disorder, unspecified; F32.9 Major depressive disorder, single episode, unspecified; I10 Essential (primary) hypertension; G89.4 Chronic pain syndrome; Z99.81 Dependence on supplemental oxygen; Z79.899 Other long term (current) drug therapy; Z88.6 Allergy status to analgesic agent; Z88.8 Allergy status to other drugs, medicaments and biological substances; Z87.891 Personal history of nicotine dependence; Y92.89 Other specified places as the place of occurrence of the external cause
CPT/HCPCS: 10078; 10204

== ENCOUNTER 2018-11-18 21:17 | Inpatient (IN) | payer OTHER ==
[~2018-11-18] VITALS: Ht 157.5 cm; Wt 71.7 kg
[~2018-11-18 21:17] MED LIST changes: +LEVAQUIN 500 M500 M1 PO; +TRAMADOL 50 MG50 MG; +TRAMADOL 50 MG50 MG PO; +TYLENOL325 MG PO
[2018-11-18 21:56] LABS: HEMATOCRIT 30.3 % (37.0-47.0); HEMOGLOBIN 9.6 gm/dL (12.0-15.0); MCH 27.1 pg (26.0-34.0); MCHC 31.7 g/dL (28.0-37.0); MCV 85.5 fL (80.0-100.0); PLATELET COUNT 415 thou/uL (150-400); RBC 3.55 mil/uL (4.20-5.00); RDW 17.2 % (10.5-14.5); WBC 20.6 thou/uL (4.0-11.0)
[2018-11-18 22:01] LABS: ANION GAP 5 mmol/L (7-16); BUN 5 mg/dL (7-18); CALCIUM 9.4 mg/dL (8.5-10.1); CHLORIDE 99 mmol/L (98-107); CO2 37 mmol/L (21-32); CREATININE 0.5 mg/dL (0.6-1.0); GLUCOSE 94 mg/dL (74-106); POTASSIUM 3.5 mmol/L (3.5-5.1); SODIUM 141 mmol/L (136-145)
[2018-11-18 22:06] LABS: ALBUMIN 2.2 g/dL (3.4-5.0); DIRECT BILIRUBIN < 0.1 mg/dL (<0.1-0.3); SGOT 12 U/L (15-37); SGPT 10 U/L (30-65); TOTAL BILIRUBIN 0.2 mg/dL (<0.1-1.0)
[2018-11-18 22:26] LABS: BE(vivo) 15.1 mmol/L (-2 to +3); HCO3 40.2 mmol/L (22.0-26.0); PCO2 52.5 mmHg (35.0-45.0); PO2 57.5 mmHg (80.0-100.0); pH 7.502 (7.360-7.450); sO2 91.6 % (92.0-98.0)
[2018-11-18 22:35] LABS: ABSOLUTE NEUTROPHILS 18.1 thou/uL (1.4-8.2)
[2018-11-18 22:37] LABS: ANISOCYTOSIS 1+; PLATELET ESTIMATE INCREASED; POIKILOCYTOSIS 1+; POLYCHROMASIA 1+
[2018-11-18 23:55] VITALS: BP 156/97
[2018-11-19] VITALS (9 sets, daily range): BP systolic 131–158; BP diastolic 81–112
[2018-11-19 05:48] LABS: HEMATOCRIT 28.7 % (37.0-47.0); HEMOGLOBIN 9.2 gm/dL (12.0-15.0); MCH 27.7 pg (26.0-34.0); MCHC 32.1 g/dL (28.0-37.0); MCV 86.1 fL (80.0-100.0); RBC 3.33 mil/uL (4.20-5.00); RDW 17.3 % (10.5-14.5); WBC 18.4 thou/uL (4.0-11.0)
[2018-11-19 05:50] LABS: CALCIUM 9.5 mg/dL (8.5-10.1); CREATININE 0.6 mg/dL (0.6-1.0); POTASSIUM 3.9 mmol/L (3.5-5.1)
--- NOTE | 2018-11-19 07:12 | NUR ---
PT ADMITTED FROM ER TO ROOM 203 WITH O2 AT 2L/NC, PRN PAIN MEDS GIVEN CHARTED FOR C/O SHOULDER AND HIP PAIN THAT IS CHRONIC, PT UP WITH ASSIT TO BSC, WILL CON'T TO MONITOR PER PPOC.
--- NOTE | 2018-11-19 09:41 | NUR ---
PATIENT CARE WAS ASSUMED AT 0715.PATIENT IS ALERT AND ORIENTED X4, PT CAN BE FORGETFUL.IV IN UPPER RIGHT ARM WAS TAKEN OUT IV TEAM WAS CALLED BY NIGHT NURSE.PT IS ON TELEM.SINUS TACH.O2 AT 3L NC.PT IS X1 ASSIST TO BSC.HAS SCDS.1+ EDEMA BILATERAL ANKLES.FALL PRECAUTIONS ARE IN PLACE.CALL LIGHT, PHONE, AND PERSONAL BELONGINGS ARE WITHIN REACH.
--- NOTE | 2018-11-19 13:28 | NUR ---
met and spoke with Sophia [phone] patients resdicover continuous improvement analyst. patient rec skilled care at [facility]. She initially was at the Assisted living but smoked in apt and evicted cannot return to Assisted Living. She wears oxygen in HC and has Cpap at facility. Patients goal to cont rehab at [facility] with goal of dc to eventual Assisted living. Plan update [facility] for return.
--- NOTE | 2018-11-19 14:24 | NUR ---
FAXED CLINICAL UPDATE TO [facility] LEFT MSG WITH PEDRO THAT UPDATE FAXED. DCP TO FOLLOW.
--- NOTE | 2018-11-19 21:31 | NUR ---
ASSUMED PT CARE AT 1900 WITH NO SIGN OF DISTRESS NOTED AT THIS TIME. PT IS ALERT AND ORIENTED. SCHEDULED MEDS ADMINISTERED TO PT. PT IS TRANSFERRED TO [facility]. DENIES ANY NEEDS. PT IS ON OXYGEN. NO FAMILY AT BEDSIDE. DENIES ANY FURTHER NEEDS AT THIS TIME.
[2018-11-20 04:36] VITALS: BP 159/92
[2018-11-20 07:43] VITALS: BP 150/93
[2018-11-20 15:27] VITALS: BP 164/99
--- NOTE | 2018-11-20 16:04 | NUR ---
CARE TEAM INDICATED THAT PT WILL LIKELY BE MEDICALLY STABLE TO DC BACK TO [facility] TOMORROW. CM TO FOLLOW INDICATED WITH DC PLANNING.
[2018-11-20 19:35] VITALS: BP 166/88
--- NOTE | 2018-11-20 20:28 | NUR ---
Assumed pt care this am, nausea and some vomiting was noted when the pt has her breakfast. This resolved when medications were given. On 3L of O2, but is able to abulate with her walker form the bed to the oilet with a steady gait. Pt calls appropriately. Pain was noted and managed with medication, pt mentioned this is chronic pain. POC followed, pt requested for BIPAP tonight informed RT endorsed to the night nurse.
[2018-11-21 02:37] VITALS: BP 148/94
--- NOTE | 2018-11-21 04:35 | NUR ---
ASSUMED CARE OF PT AT 1900HRS. PT IS AOX4 AND LETS NEEDS BE KNOWN. PT REPORTED SOME PAIN AND WAS COMFORTABLE AFTER PRN PAIN MEDS. O2 VIA NC CONTINUED. NO OTHER S/S OF ACUTE DISTRESS. WILL CONTINUE TO MONITOR.
[2018-11-21 08:15] VITALS: BP 148/79
[2018-11-21] MEDS ORDERED: IPRAT-ALBUT 0.5-3 ML INH (09:12)
--- NOTE | 2018-11-21 12:22 | NUR ---
DISCHARGE ORDERS RECEIVED. PATIENT DISCHARGING TO [facility]. CHART COPIED PER WEBSITE/BLOG EDITOR. ORDERS FAXED TO [facility], RECEIVED. TRANSPORTATION PER [facility] SET UP FOR 1-1:30 PICK. UNIT NOTIFIED AND CONTACT NUMBER FOR REPORT PROVIDED.
--- NOTE | 2018-11-21 12:32 | NUR ---
CARE TEAM INDICATED THAT PT IS MEDICALLY STABLE TO DISCHARGE BACK TO [facility] THIS DAY. CHART COPY MADE. ORDERS FAXED. REPORT TO BE CALLED TO . CM NOTIFIED PT'S BROTHER AND HER REDISCOVER ASTRONAUT MISSION SPECIALIST. TRANSPORT IS ARRANGED FOR 1244-3452. PT IS AWARE AND AGREEABLE. NO OTHER CM INTERVENTION INDICATED CASE CLOSED.
--- NOTE | 2018-11-21 13:44 | NUR ---
PATIENT WILL BE DISCHARGED TO SKILLED FACILITY AT THIS TIME. SHE IS ALERT ORIENTED X4. DOES NOT SEEM TO BE IN PAIN. HAD A HEADACHE EARLIER WAS TREATED WITH TYLENOL AND IT WAS EFFECTIVE. NOW SLEEPING. WILL CONT WIHT PLAN OF CARE.
== END 2018-11-21 14:00 | DRG 189 ==
LOC: ER 21:17 → 2N 23:30 → EROBS 23:30 → 2N 11-19 00:06 → 4W 11-19 21:22
PROVIDERS: Emergency Medicine; Nurse Practitioner Family; ADMIT Hospitalist
DX: J96.21 Acute and chronic respiratory failure with hypoxia (principal); J44.1 Chronic obstructive pulmonary disease with (acute) exacerbation; F11.20 Opioid dependence, uncomplicated; F41.9 Anxiety disorder, unspecified; J96.22 Acute and chronic respiratory failure with hypercapnia; G89.4 Chronic pain syndrome; F32.9 Major depressive disorder, single episode, unspecified; I10 Essential (primary) hypertension; Z87.891 Personal history of nicotine dependence; Z88.6 Allergy status to analgesic agent; Z88.8 Allergy status to other drugs, medicaments and biological substances; Z79.899 Other long term (current) drug therapy
CPT/HCPCS: 10047

== ENCOUNTER 2018-11-26 20:51 | Emergency (ER) | payer OTHER ==
[~2018-11-26] VITALS: Ht 152.4 cm; Wt 72.6 kg
[2018-11-26 21:57] LABS: HEMATOCRIT 31.9 % (37.0-47.0); HEMOGLOBIN 10.1 gm/dL (12.0-15.0); MCH 26.9 pg (26.0-34.0); MCHC 31.5 g/dL (28.0-37.0); MCV 85.5 fL (80.0-100.0); PLATELET COUNT 667 thou/uL (150-400); RBC 3.73 mil/uL (4.20-5.00); RDW 17.3 % (10.5-14.5); WBC 11.9 thou/uL (4.0-11.0)
[2018-11-26 22:01] LABS: ANION GAP 2 mmol/L (7-16); BUN 8 mg/dL (7-18); CALCIUM 9.2 mg/dL (8.5-10.1); CHLORIDE 99 mmol/L (98-107); CO2 41 mmol/L (21-32); CREATININE 0.5 mg/dL (0.6-1.0); GLUCOSE 90 mg/dL (74-106); POTASSIUM 3.7 mmol/L (3.5-5.1); SODIUM 142 mmol/L (136-145)
[2018-11-26 22:12] LABS: ALBUMIN 2.6 g/dL (3.4-5.0); LIPASE 69 U/L (73-393); SGOT 8 U/L (15-37); SGPT 13 U/L (30-65); TOTAL BILIRUBIN 0.1 mg/dL (<0.1-1.0); TOTAL PROTEIN 7.1 g/dL (6.4-8.2); TROPONIN-I <0.06 ng/mL (<0.06)
[2018-11-26 22:14] LABS: URINE BILIRUBIN NEGATIVE (Negative); URINE BLOOD NEGATIVE (Negative); URINE CLARITY CLEAR; URINE COLOR YELLOW; URINE GLUCOSE-RANDOM* NEGATIVE (Negative); URINE KETONES NEGATIVE (Negative); URINE LEUKOCYTES-REFLEX NEGATIVE (Negative); URINE NITRITE-REFLEX NEGATIVE (Negative); URINE PROTEIN (DIPSTICK) NEGATIVE (Negative); URINE UROBILINOGEN 0.2 E.U./dl (0.2-1.0)
[2018-11-26 23:03] LABS: ABSOLUTE NEUTROPHILS 8.2 thou/uL (1.4-8.2)
[2018-11-26 23:04] LABS: ANISOCYTOSIS 1+; PLATELET ESTIMATE MARKEDLY INCREASED; POIKILOCYTOSIS 1+; POLYCHROMASIA 1+
[2018-11-27] MEDS ORDERED: CARAFATE 1 GM TA1 G1 PO (00:57)
[2018-11-27] MEDS ORDERED: ZOFRAN ODT4 MG PO (00:57)
[2018-11-27] MEDS ORDERED: PROTONIX40 M1 PO (00:57)
[2018-11-27 03:00] VITALS: BP 117/78
--- NOTE | 2018-11-27 08:17 | EKG ---
[facility] [place] [address] ELECTROCARDIOGRAM REPORT Name: MIGUEL COLEMAN Room #: DENEEN Marcelino#: [id number] ������������������ Admission: 11/26/18 ������������������ Attend Phys: Discharge: 11/27/18 ������������������ Date of : 71 Report #: [id number] ����������������������������������������������������������������� [id number] THIS REPORT FOR: //name// [facility] ED Test Date: 2018-11-26 Test Time: 21:38:13 Pat Name: MIGUEL COLEMAN Department: Room: Gender: F Co Teacher: RAFIQ : 1975 Requested By: Marielos Moy Order Number: [id number] MD: Kamar Finley Measurements Intervals [place] Rate: 91 P: -88 MS: 106 QRS: 42 QRSD: 93 T: 69 QT: 378 QTc: 466 Interpretive Statements Ectopic atrial rhythm Short MS interval ST elev, probable normal early repol pattern Compared to ECG 11/06/2018 14:00:37 Ectopic atrial rhythm now present Electronically Signed On 11-27-2018 8:17:11 CDT by Kamar Finley [email or web address] ��������������������������������������������� <ELECTRONICALLY SIGNED> ���������������������������������������� By: Kamar Finley MD, [facility] ��������������������������������������������� 11/27/18 0817 37 37 Kamar Finley MD, [facility] /EPI
== END 2018-11-27 03:10 | disposition home or self-care (01) ==
LOC: ER 20:51
PROVIDERS: Nurse Practitioner Family
DX: K29.70 Gastritis, unspecified, without bleeding (principal); R10.13 Epigastric pain; R10.12 Left upper quadrant pain; J44.9 Chronic obstructive pulmonary disease, unspecified; G89.29 Other chronic pain; M25.511 Pain in right shoulder; M25.552 Pain in left hip; I10 Essential (primary) hypertension; Z87.891 Personal history of nicotine dependence; Z79.899 Other long term (current) drug therapy; Z88.6 Allergy status to analgesic agent

== ENCOUNTER 2018-12-12 13:29 | Inpatient (IN) | payer OTHER ==
[~2018-12-12] VITALS: Ht 162.6 cm; Wt 74.6 kg
--- NOTE | ~2018-12-12 | EMS ---
[facility] [address] [place] [address] EMS Patient Care Report Name: MIGUEL COLEMAN Room #: KAYLIE ANAND MBrennaRBrenna#: [id number] Admission: Attend Phys: Discharge: Date of : 71 Report #: [id number] THIS REPORT FOR: //name// Report Transmitted: 12/12/2018 13:20 EMS Care Summary [place], [place]/[facility] Incident [id number] @ 12/12/2018 12:46 Incident Location [address] [place] [address] Patient MIGUEL XIAO Female, 43 Years 1975 Patient Address [address] [place], [place] [id number] Patient History Chronic Obstructive Pulmonary Disease (COPD),Depression, Patient Allergies No known allergies, Patient Medications Other, Ambien, Ondansetron, Cymbalta, Pantoprazole, Tramadol, Famotidine, Chief Complaint SHORTNESS OF BREATH Disposition Transported No Lights/Girard Dispatch Reason Breathing Problem Transported To [facility] Narrative PT FOUND SEATED UPRIGHT IN HER WHEELCHAIR, A&OX3, C/O SHORTNESS OF BREATH. PT SAYS SHE HAS BEEN HAVING TROUBLE BREATHING FOR A COUPLE DAYS BUT IT IS GETTING WORSE RIGHT NOW. PT IS A SMOKER AND SAYS SHE IS TRYING TO QUIT BUT UNSUCCESSFUL [address] [address] EMS Patient Care Report Name: MIGUEL COLEMAN Room #: PRE Ryland#: [id number] Admission: Attend Phys: Discharge: Date of : 71 Report #: [id number] TO DATE. PT NOTED TO HAVE LABORED BREATHING AND USING ACCESSORY MUSCLES. PT INITIAL SATURATION IS 85%. BREATHING TREATMENT BRINGS HER UP TO 99%. PT ASSESSED ON SCENE, MOVED TO COT, MOVED TO AMBULANCE, VS, PULSE OX, BREATHING TREATMENT. PT TRANSPORTED TO [facility] WITHOUT INCIDENT OR CHANGE. PT PLACED IN BED #04. REPORT / CARE TRANSFERRED TO STAFF. UNIT 552 RETURNED TO SERVICE. Initial Vitals @13:05P: 97,R: 22,BP: 127/85,Pain: 0/10,GCS: 15,SpO2: 83,Revised Trauma: 12, @13:10P: 87,R: 18,BP: 125/82,Pain: 0/10,GCS: 15,CO: 9,SpO2: 98,Revised Trauma: 12, Assessments @13:02MENTAL:No Abnormalities,SKIN:No Abnormalities,HEENT:Head/Face: No Abnormalities,Eyes: No Abnormalities,Neck/Airway: No Abnormalities,LUNG SOUNDS:General: No Abnormalities,Left Upper: No Abnormalities,Right Upper: No Abnormalities,Left Lower: No Abnormalities,Right Lower: No Abnormalities,ABDOMEN:General: No Abnormalities,Left Upper: No Abnormalities,Right Upper: No Abnormalities,Left Lower: No Abnormalities,Right Lower: No Abnormalities,PELVIS//GI:No Abnormalities,EXTREMITIES:Left Arm: No Abnormalities,Right Arm: No Abnormalities,Left Leg: No Abnormalities,Right Leg: No Abnormalities,PULSE:NEURO:No Abnormalities, Impression Shortness of breath Timeline 12:44,Call Received 12:44,Dispatch Notified 12:46,Dispatched 12:48,En Route 13:00,On Scene 13:01,At Patient 13:05,BP: 127/85 M,PULSE: 97,RR: 22 R,SPO2: 83 Ox,ETCO2: ,BG: ,PAIN: 0,GCS: 15, 13:10,BP: 125/82 M,PULSE: 87,RR: 18 R,SPO2: 98 Ox,ETCO2: ,BG: ,PAIN: 0,GCS: 15, 13:12,Depart Scene 13:23,At Destination 13:55,Call Closed Disclaimer v1.1 Copyright 2019 [employer] This EMS Care Summary contains data elements from the applicable legal record (which may be displayed differently). It is designed to provide pertinent information for the following purposes: continuity of care, clinical quality, and state data reporting. The complete legal record is available to ED staff [address] [address] EMS Patient Care Report Name: MIGUEL COLEMAN Room #: PRE M.R.#: [id number] Admission: Attend Phys: Discharge: Date of : 71 Report #: [id number] and administrators of the receiving hospital in ES's Patient Tracker. All data is provided "as is."
[~2018-12-12 13:29] MED LIST changes: +CARAFATE 1 GM TA1 G1 PO; +PROTONIX40 M1 PO; +ZOFRAN ODT4 MG PO
[2018-12-12 13:31] VITALS: BP 121/88
[2018-12-12 14:01] LABS: BE(vivo) 13.7 mmol/L (-2 to +3); HCO3 43.9 mmol/L (22.0-26.0); PO2 100.8 mmHg (80.0-100.0); sO2 96.2 % (92.0-98.0)
[2018-12-12 14:02] LABS: PCO2 99.6 mmHg (35.0-45.0); pH 7.262 (7.360-7.450)
[2018-12-12 14:33] LABS: ABSOLUTE NEUTROPHILS 6.2 thou/uL (1.4-8.2); BASOPHILS 0.3 % (0.0-2.0); EOSINOPHILS 0.8 % (0.0-3.0); HEMATOCRIT 33.2 % (37.0-47.0); HEMOGLOBIN 10.3 gm/dL (12.0-15.0); LYMPHOCYTES 8.8 % (24.0-44.0); MCH 26.8 pg (26.0-34.0); MCV 86.6 fL (80.0-100.0); MONOCYTES 6.2 % (1.0-8.0); PLATELET COUNT 222 thou/uL (150-400); POLYS 83.9 % (36.0-66.0); RBC 3.84 mil/uL (4.20-5.00); RDW 18.3 % (10.5-14.5); WBC 7.4 thou/uL (4.0-11.0)
[2018-12-12 14:43] LABS: BUN 9 mg/dL (7-18); CALCIUM 9.2 mg/dL (8.5-10.1); CHLORIDE 99 mmol/L (98-107); CREATININE 0.5 mg/dL (0.6-1.0); GLUCOSE 97 mg/dL (74-106); POTASSIUM 4.3 mmol/L (3.5-5.1); SODIUM 142 mmol/L (136-145)
[2018-12-12 14:52] LABS: PLATELET ESTIMATE NORMAL
[2018-12-12 14:53] LABS: ALBUMIN 3.1 g/dL (3.4-5.0); SGOT 18 U/L (15-37); SGPT 17 U/L (30-65); TOTAL BILIRUBIN 0.3 mg/dL (<0.1-1.0); TOTAL PROTEIN 7.2 g/dL (6.4-8.2); TROPONIN-I 0.11 ng/mL (<0.06)
[2018-12-12 14:54] LABS: ANISOCYTOSIS 1+; POLYCHROMASIA 1+
[2018-12-12 14:55] LABS: CO2 > 45 mmol/L (21-32)
[2018-12-12 16:03] LABS: BE(vivo) 13.2 mmol/L (-2 to +3); HCO3 41.9 mmol/L (22.0-26.0); PO2 62.5 mmHg (80.0-100.0); pH 7.321 (7.360-7.450); sO2 88.7 % (92.0-98.0)
[2018-12-12] MEDS ORDERED: AMBIEN 5 MG TABL5 M1 PO (18:30)
[2018-12-12 20:02] LABS: BE(vivo) 10.4 mmol/L (-2 to +3); HCO3 36.1 mmol/L (22.0-26.0); PCO2 54.8 mmHg (35.0-45.0); PO2 67.7 mmHg (80.0-100.0); pH 7.437 (7.360-7.450); sO2 93.7 % (92.0-98.0)
[2018-12-12 23:10] VITALS: BP 113/70
[2018-12-12 23:29] VITALS: BP 109/66
[2018-12-13] VITALS (25 sets, daily range): BP systolic 101–142; BP diastolic 57–95
[2018-12-13 04:44] LABS: HEMATOCRIT 27.5 % (37.0-47.0); HEMOGLOBIN 8.7 gm/dL (12.0-15.0); MCHC 31.7 g/dL (28.0-37.0); MCV 85.2 fL (80.0-100.0); RBC 3.23 mil/uL (4.20-5.00); RDW 18.2 % (10.5-14.5); WBC 7.8 thou/uL (4.0-11.0)
[2018-12-13 05:12] LABS: CALCIUM 8.9 mg/dL (8.5-10.1); CREATININE 0.6 mg/dL (0.6-1.0); MAGNESIUM 1.9 mg/dL (1.8-2.4); POTASSIUM 4.6 mmol/L (3.5-5.1)
--- NOTE | 2018-12-13 07:44 | EKG ---
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 : 1975 Requested By: Mahsa Wu Order Number: [id number] MD: Kamar Finley Measurements Intervals [place] Rate: 96 P: 64 [place]: 114 QRS: 13 QRSD: 84 T: 56 QT: 352 QTc: 445 Interpretive Statements Sinus rhythm Normal tracing Compared to ECG 11/26/2018 21:38:13 ST (T wave) deviation no longer present Electronically Signed On 12-13-2018 7:44:32 CDT by Kamar Finley [email or web address] <ELECTRONICALLY SIGNED> By: Kamar Finley MD, [facility] 12/13/18 0744 1343 134 Kamar Finley MD, [facility] /EPI
[2018-12-13 08:00] LABS: BE(vivo) 12.4 mmol/L (-2 to +3); HCO3 38.7 mmol/L (22.0-26.0); PCO2 60.5 mmHg (35.0-45.0); PO2 73.9 mmHg (80.0-100.0); pH 7.424 (7.360-7.450); sO2 94.7 % (92.0-98.0)
[2018-12-13 09:09] LABS: URINE BILIRUBIN NEGATIVE (Negative); URINE BLOOD NEGATIVE (Negative); URINE CLARITY CLEAR; URINE COLOR YELLOW; URINE GLUCOSE-RANDOM* NEGATIVE (Negative); URINE KETONES NEGATIVE (Negative); URINE LEUKOCYTES-REFLEX NEGATIVE (Negative); URINE NITRITE-REFLEX NEGATIVE (Negative); URINE PROTEIN (DIPSTICK) 1+ (Negative)
[2018-12-13 09:16] LABS: SQUAMOUS >10 Many /LPF (0-3)
[2018-12-13 09:18] LABS: BACTERIA-REFLEX 1-9 Few /HPF (None Seen); CASTS None Seen /LPF (None Seen); CRYSTALS None Seen /LPF (None Seen); MUCUS 0-3 Light strn/LPF (None Seen); URINE RBC None Seen /HPF (0-2); URINE WBC-REFLEX None Seen /HPF (0-5)
[2018-12-14 04:30] VITALS: BP 132/95
[2018-12-14 04:36] LABS: HEMATOCRIT 29.9 % (37.0-47.0); HEMOGLOBIN 9.4 gm/dL (12.0-15.0); MCH 26.8 pg (26.0-34.0); MCHC 31.3 g/dL (28.0-37.0); MCV 85.6 fL (80.0-100.0); RBC 3.49 mil/uL (4.20-5.00); RDW 18.5 % (10.5-14.5); WBC 9.5 thou/uL (4.0-11.0)
[2018-12-14 04:40] LABS: CALCIUM 8.9 mg/dL (8.5-10.1); CREATININE 0.6 mg/dL (0.6-1.0); MAGNESIUM 1.7 mg/dL (1.8-2.4); POTASSIUM 3.9 mmol/L (3.5-5.1)
[2018-12-14 07:53] VITALS: BP 131/84
[2018-12-14 11:17] VITALS: BP 128/84
[2018-12-14 16:00] VITALS: BP 143/92
[2018-12-14 20:35] VITALS: BP 141/93
[2018-12-15 05:15] LABS: HEMATOCRIT 28.6 % (37.0-47.0); HEMOGLOBIN 9.1 gm/dL (12.0-15.0); MCH 26.9 pg (26.0-34.0); MCHC 31.7 g/dL (28.0-37.0); RBC 3.37 mil/uL (4.20-5.00); RDW 19.3 % (10.5-14.5); WBC 7.1 thou/uL (4.0-11.0)
[2018-12-15 05:30] LABS: CALCIUM 8.6 mg/dL (8.5-10.1); CREATININE 0.6 mg/dL (0.6-1.0); MAGNESIUM 1.7 mg/dL (1.8-2.4); POTASSIUM 4.1 mmol/L (3.5-5.1)
[2018-12-15 06:20] VITALS: BP 123/88
[2018-12-15 07:50] VITALS: BP 127/83
[2018-12-15 11:47] VITALS: BP 136/88
[2018-12-15 15:42] VITALS: BP 123/83
[2018-12-15 19:25] VITALS: BP 123/80
[2018-12-16 04:06] VITALS: BP 112/78
[2018-12-16 05:42] LABS: HEMATOCRIT 28.9 % (37.0-47.0); HEMOGLOBIN 8.9 gm/dL (12.0-15.0); MCH 26.5 pg (26.0-34.0); MCHC 30.8 g/dL (28.0-37.0); RBC 3.36 mil/uL (4.20-5.00); RDW 19.8 % (10.5-14.5); WBC 6.7 thou/uL (4.0-11.0)
[2018-12-16 05:54] LABS: CALCIUM 8.4 mg/dL (8.5-10.1); CREATININE 0.5 mg/dL (0.6-1.0); MAGNESIUM 1.7 mg/dL (1.8-2.4); POTASSIUM 3.6 mmol/L (3.5-5.1)
[2018-12-16 08:13] VITALS: BP 127/85
[2018-12-16 12:11] VITALS: BP 121/80
[2018-12-16 12:53] VITALS: BP 121/80
[2018-12-16 16:38] VITALS: BP 127/85
[2018-12-16 19:43] VITALS: BP 145/95
[2018-12-17 04:20] VITALS: BP 137/91
[2018-12-17 07:55] VITALS: BP 129/74
[2018-12-17 11:29] VITALS: BP 122/33
[2018-12-17 15:02] VITALS: BP 135/91
[2018-12-17 19:32] VITALS: BP 141/75
[2018-12-18 04:30] VITALS: BP 112/72
[2018-12-18 07:36] VITALS: BP 18/68
[2018-12-18] MEDS ORDERED: NICOTINE TRANSD14 M1 TRANSDERM (13:51)
[2018-12-18] MEDS ORDERED: MUCINEX600 MG PO (13:52)
[2018-12-18] MEDS ORDERED: PREDNISONE 10 M10 MG PO (13:53)
== END 2018-12-18 17:11 | DRG 189 ==
LOC: ER 13:29 → 3W 15:27 → ICU 15:27 → EROBS 15:27 → ICU 23:29 → 3W 12-13 10:59
PROVIDERS: Pediatrics; Physician Assistant; ADMIT Internal Medicine
PROC: 5A09357 Assistance with Respiratory Ventilation, Less than 24 Consecutive Hours, Continuous Positive Airway Pressure (ICD-10-PCS; principal; 2018-12-13)
PROC: 5A09357 Assistance with Respiratory Ventilation, Less than 24 Consecutive Hours, Continuous Positive Airway Pressure (ICD-10-PCS; 2018-12-15)
PROC: 5A09357 Assistance with Respiratory Ventilation, Less than 24 Consecutive Hours, Continuous Positive Airway Pressure (ICD-10-PCS; 2018-12-16)
PROC: 5A09357 Assistance with Respiratory Ventilation, Less than 24 Consecutive Hours, Continuous Positive Airway Pressure (ICD-10-PCS; 2018-12-17)
PROC: 5A09357 Assistance with Respiratory Ventilation, Less than 24 Consecutive Hours, Continuous Positive Airway Pressure (ICD-10-PCS; 2018-12-18)
DX: J96.22 Acute and chronic respiratory failure with hypercapnia (principal); I50.21 Acute systolic (congestive) heart failure; J44.1 Chronic obstructive pulmonary disease with (acute) exacerbation; F11.20 Opioid dependence, uncomplicated; I11.0 Hypertensive heart disease with heart failure; J96.21 Acute and chronic respiratory failure with hypoxia; F41.9 Anxiety disorder, unspecified; F32.9 Major depressive disorder, single episode, unspecified; I10 Essential (primary) hypertension; G89.4 Chronic pain syndrome; F19.10 Other psychoactive substance abuse, uncomplicated; R00.0 Tachycardia, unspecified; Z88.6 Allergy status to analgesic agent; Z88.8 Allergy status to other drugs, medicaments and biological substances; Z87.891 Personal history of nicotine dependence; Z79.899 Other long term (current) drug therapy
CPT/HCPCS: 10078; 10879

== ENCOUNTER 2019-02-01 08:41 | Inpatient (IN) | payer OTHER ==
[~2019-02-01] VITALS: Ht 165.1 cm; Wt 79.5 kg
[2019-02-01] VITALS (19 sets, daily range): BP systolic 115–147; BP diastolic 72–93
[~2019-02-01 08:41] MED LIST changes: +AMBIEN 5 MG TABL5 M1 PO; +MUCINEX600 MG PO; +NICOTINE TRANSD14 M1 TRANSDERM
[2019-02-01 09:11] LABS: BE(vivo) 14.7 mmol/L (-2 to +3); HCO3 45.3 mmol/L (22.0-26.0); PCO2 103.5 mmHg (35.0-45.0); PO2 60.1 mmHg (80.0-100.0); pH 7.259 (7.360-7.450); sO2 84.8 % (92.0-98.0)
[2019-02-01 09:17] LABS: ABSOLUTE NEUTROPHILS 5.4 thou/uL (1.4-8.2); BASOPHILS 0.4 % (0.0-2.0); EOSINOPHILS 0.5 % (0.0-3.0); HEMATOCRIT 31.3 % (37.0-47.0); HEMOGLOBIN 9.6 gm/dL (12.0-15.0); LYMPHOCYTES 14.2 % (24.0-44.0); MCH 26.9 pg (26.0-34.0); MCHC 30.7 g/dL (28.0-37.0); MCV 87.9 fL (80.0-100.0); MONOCYTES 7.2 % (1.0-8.0); PLATELET COUNT 235 thou/uL (150-400); POLYS 77.7 % (36.0-66.0); RBC 3.56 mil/uL (4.20-5.00); RDW 18.3 % (10.5-14.5)
[2019-02-01 09:37] LABS: ANION GAP 4 mmol/L (7-16); BUN 6 mg/dL (7-18); CHLORIDE 112 mmol/L (98-107); CO2 31 mmol/L (21-32); CREATININE 0.3 mg/dL (0.6-1.0); GLUCOSE 90 mg/dL (74-106); SODIUM 147 mmol/L (136-145); TROPONIN-I <0.06 ng/mL (<0.06)
[2019-02-01 09:38] LABS: POTASSIUM 2.6 mmol/L (3.5-5.1)
[2019-02-01 10:27] LABS: ANISOCYTOSIS 1+
[2019-02-01 10:49] LABS: BE(vivo) 15.2 mmol/L (-2 to +3); HCO3 44.2 mmol/L (22.0-26.0); sO2 81.7 % (92.0-98.0)
[2019-02-01 10:50] LABS: PCO2 86.2 mmHg (35.0-45.0); PO2 51.8 mmHg (80.0-100.0); pH 7.328 (7.360-7.450)
[2019-02-01] MEDS ORDERED: NORCO 5-325 TA1 EAC1 PO (11:17)
[2019-02-01 15:16] LABS: BE(vivo) 16.5 mmol/L (-2 to +3); PCO2 82.2 mmHg (35.0-45.0); PO2 65.5 mmHg (80.0-100.0); pH 7.356 (7.360-7.450); sO2 90.8 % (92.0-98.0)
--- NOTE | 2019-02-01 18:05 | EKG ---
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 : 1975 Requested By: Dave Bryan Order Number: [id number] MD: Placido Ramires Measurements Intervals [place] Rate: 91 P: 119 [place]: 128 QRS: 160 QRSD: 86 T: 132 QT: 375 QTc: 462 Interpretive Statements Right and left arm electrode reversal, interpretation assumes no reversal Sinus rhythm Probable lateral infarct, age indeterminate Compared to ECG 12/12/2018 13:43:28 Myocardial infarct finding now present Electronically Signed On 02-01-2019 18:05:23 CDT by Placido Ramires [email or web address] <ELECTRONICALLY SIGNED> By: Placido Ramires MD 02/01/19 1805 0859 [id number] Placido Ramires MD /EPI
--- NOTE | 2019-02-01 19:38 | NUR ---
PATIENT ADMITTED FROM ED DEPARTMENT AT 1230, ALERT AND ORIENTED X4. ON BIPAP, ABG MONITORED. SINUS RHYTHM ON LEACH TANK TENDER. TOLERATING CLEAR LIQUID DIET. CRITICAL POTASSIUM LABWORK, REPLACED. SPOKE WITH DR. SMITH ABOUT CONSULT. PATIENT TOLERATING BIPAP WELL. NO SIGNS OF ACUTE DISTRESS NOTED AT THIS TIME. WILL CONTINUE TO MONITOR.
[2019-02-01 23:49] LABS: URINE BILIRUBIN NEGATIVE (Negative); URINE BLOOD NEGATIVE (Negative); URINE CLARITY CLEAR; URINE COLOR YELLOW; URINE GLUCOSE-RANDOM* NEGATIVE (Negative); URINE KETONES NEGATIVE (Negative); URINE LEUKOCYTES-REFLEX TRACE (Negative); URINE NITRITE-REFLEX NEGATIVE (Negative); URINE PROTEIN (DIPSTICK) NEGATIVE (Negative)
[2019-02-01 23:57] LABS: AMP/METHAMP Negative (Negative); BARBITURATES Negative (Negative); BENZODIAZEPINES Negative (Negative); COCAINE Negative (Negative); METHADONE Negative (Negative); OPIATES Negative (Negative); PCP Negative (Negative)
[2019-02-02] VITALS (13 sets, daily range): BP systolic 113–146; BP diastolic 70–107
[2019-02-02 00:03] LABS: SSA (PROTEIN CONFIRMATORY) NEGATIVE (Negative)
--- NOTE | 2019-02-02 00:42 | NUR ---
CARE PLAN UPDATE AND APPLICABLE DATES ARE LISTED.
[2019-02-02 05:00] LABS: CREATININE 0.5 mg/dL (0.6-1.0)
[2019-02-02 05:08] LABS: CALCIUM 8.8 mg/dL (8.5-10.1); POTASSIUM 4.6 mmol/L (3.5-5.1)
[2019-02-02 05:52] LABS: BE(vivo) 4.8 mmol/L (-2 to +3); HCO3 31.2 mmol/L (22.0-26.0); PCO2 56.1 mmHg (35.0-45.0); PO2 62.4 mmHg (80.0-100.0); pH 7.363 (7.360-7.450); sO2 90.7 % (92.0-98.0)
--- NOTE | 2019-02-02 06:25 | NUR ---
ALL CARE PLANS UPDATE AND INTERVENTION DATES UPDATED.
--- NOTE | 2019-02-02 16:46 | NUR ---
PATIENT ALERT AND ORIENTED X4, PAIN MILDLY CONTROLLED WITH MEDICATION. ON 4L NASAL CANNULA, BIPAP AT NIGHT. UP WITH STANDBY ASSISTANCE, PATIENT WALKED HALLWAY X1, SHORTNESS OF BREATH WITH INCREASED ACTIVITY. PLAN OF CARE DISCUSSED WITH PATIENT, VERBALIZED UNDERSTANDING. NO SIGNS OF ACUTE DISTRESS NOTED AT THIS TIME. WILL CONTINUE TO MONITOR.
--- NOTE | 2019-02-02 21:00 | NUR ---
PT IS AWAKE AND ALERT. AWAITING A BED REMAINS A MED SURG OVERFLOW. REQUESTING HER SLEEPIG PILL AND PAIN MED FOR RIGHT SHOULDER. WILL CONT TO MONITOR CLOSELY.
[2019-02-03] VITALS: BP 124/72
--- NOTE | 2019-02-03 06:00 | NUR ---
PT AWAKE AND ALERT.SLEPT MOST OF NOCT WITH BIPAP.UP TO BEDSIDE COMMODE VOIDING SUZAN URINE 1200 CC THIS SHIFT. LUNGS DIMINISHDED. DENIES SOA REMAINS A MED SURG OVERFLOW. WILLL CONT TO MONIOR,
[2019-02-03 08:00] VITALS: BP 128/86
[2019-02-03 08:06] LABS: BE(vivo) 3.5 mmol/L (-2 to +3); HCO3 30.4 mmol/L (22.0-26.0); PCO2 58.6 mmHg (35.0-45.0); PO2 64.2 mmHg (80.0-100.0); pH 7.333 (7.360-7.450); sO2 90.6 % (92.0-98.0)
[2019-02-03 08:55] LABS: HEMATOCRIT 32.4 % (37.0-47.0); HEMOGLOBIN 9.9 gm/dL (12.0-15.0); MCH 26.9 pg (26.0-34.0); MCHC 30.6 g/dL (28.0-37.0); MCV 87.8 fL (80.0-100.0); RBC 3.69 mil/uL (4.20-5.00); RDW 19.7 % (10.5-14.5); WBC 7.4 thou/uL (4.0-11.0)
[2019-02-03 09:04] LABS: CALCIUM 8.9 mg/dL (8.5-10.1); CREATININE 0.7 mg/dL (0.6-1.0); POTASSIUM 4.6 mmol/L (3.5-5.1)
--- NOTE | 2019-02-03 10:00 | 2DMMODE ---
"[facility] [address] [place] [address] 2 D/M-MODE ECHOCARDIOGRAM Name: MIGUEL COLEMAN Room #: 242-P ADM IN M.R.#: [id number] Admission: 02/01/19 Attend Phys: Delano Pike Discharge: Date of : 71 Report #: [id number] THIS REPORT FOR: //name// APPROVED REPORT Study performed: 02/03/2019 08:55:39 EXAM: Comprehensive 2D, Doppler, and color-flow Echocardiogram Patient Location: Bedside Room #: 242 Status: routine BSA: 1.87 HR: 79 bpm BP: 124/72 mmHg Rhythm: NSR Other Information Study Quality: Technically Limited Technically limited study due to body habitus. Indications Abnormal ECG COPD Hypertension/HDD 2D Dimensions RVDd: 40.84 mm IVSd: 11.08 (7-11mm) LVOT Diam: 19.89 (18-24mm) LVDd: 55.45 mm PWd: 10.53 (7-11mm) LVDs: 42.75 (25-40mm) Aortic Root: 27.31 mm IVC: 17.00 mm Volumes Left Atrial Volume (Systole) Single Plane 4CH: 46.99 mL Single Plane 2CH: 46.82 mL LA ESV Index: 26.00 mL/m2 Aortic Valve AoV Peak Nilesh.: 1.36 m/s AO Peak Gr.: 7.44 mmHg LVOT Max P.42 mmHg LVOT Max V: 1.05 m/s KAT Vmax: 2.40 cm2 Mitral Valve [facility] [address] [place] [address] 2 D/M-MODE ECHOCARDIOGRAM Name: MIGUEL COLEMAN Room #: 242-P ADM IN M.R.#: [id number] Admission: 02/01/19 Attend Phys: Delano Pike Discharge: Date of : 71 Report #: [id number] E/A Ratio: 0.7 MV Decel. Time: 187.85 ms MV E Max Nilesh.: 0.73 m/s MV A Nilesh.: 1.02 m/s MV PHT: 54.48 ms IVRT: 96.89 ms Pulmonary Valve PV Peak Nilesh.: 1.08 m/s PV Peak Gr.: 4.67 mmHg Pulmonary Vein P Vein S: 0.57 m/s P Vein A: 0.27 m/s P Vein D: 0.42 m/s P Vein A Dur.: 90.0 msec P Vein S/D Ratio: 1.36 Tricuspid Valve RAP Estimate: 10.00 mmHg Left Ventricle Left ventricle is at the upper limits of normal. There is normal left ventricular wall thickness. Left ventricular systolic function is mildly decreased. LVEF is 45-50%. Mild diastolic dysfunction is present (impaired relaxation pattern). Right Ventricle Right ventricle is at the upper limits of normal. The right ventricular systolic function is normal. Atria The left atrium size is normal. Right atrium is mildly dilated. Aortic Valve The aortic valve is normal in structure. No aortic regurgitation is present. There is no aortic valvular stenosis. Mitral Valve The mitral valve is normal in structure. Trace to mild mitral regurgitation. No evidence of mitral valve stenosis. Tricuspid Valve The tricuspid valve is normal in structure. Trace tricuspid regurgitation. Unable to assess PA pressure. Pulmonic Valve Pulmonic valve is not well visualized. [facility] [address] [place] [address] 2 D/M-MODE ECHOCARDIOGRAM Name: MIGUEL COLEMAN Room #: 242-P ADM IN M.R.#: [id number] Admission: 02/01/19 Attend Phys: Delano Pike Discharge: Date of : 71 Report #: [id number] Great Vessels The aortic root is normal in size. IVC is normal in size and collapses <50% with inspiration. Pericardium There is no pericardial effusion. <Conclusion> Left ventricle is at the upper limits of normal. LVEF is 45-50%. Right ventricle is at the upper limits of normal. Right atrium is mildly dilated. The aortic valve is normal in structure. The mitral valve is normal in structure. Trace to mild mitral regurgitation. The tricuspid valve is normal in structure. Trace tricuspid regurgitation. Unable to assess PA pressure. Pulmonic valve is not well visualized. There is no pericardial effusion. <ELECTRONICALLY SIGNED> By: Jose Juan Sampson MD 02/03/19 1000 1000 1000 Jose Juan Sampson MD /INF"
[2019-02-03] MEDS ORDERED: PREDNISONE 20 M20 M1 PO (12:25)
--- NOTE | 2019-02-03 13:54 | NUR ---
PT DISCHARGING BACK TO [facility] FAXED DC ORDERS/SUMMARY TO FACILITY SPOKE WITH PEDRO IN ADM SHE RECEIVED DC ORDERS AND ARRANGED TRANSPORT BY VAN AND 3L 02 FOR 1430 TODAY. LEFT MSG WITH PT'S REDISCOVER NUTRITIONAL SERVICES COOK (KAMI). UNIT NOTIFIED AND CHART COPY PER US. RN TO CALL REPORT TO [phone].
--- NOTE | 2019-02-03 15:32 | NUR ---
ASSUMED CARE OF PT AT 0645. PLAN TO DC AFTER ECO COMPLETED. REPORT CALLED TO FACILITY AT 1500. IV DC. PT DRESSED HERSELF. PICKED UP BY WHEELCHAIR VAN AT 1520.
[2019-04-15] MEDS ORDERED: POTASSIUM20 PO (18:35)
[2019-04-15] MEDS ORDERED: AMBIEN 5 MG TABL5 M1 PO (18:38)
[2019-04-15] MEDS ORDERED: VISTARIL 25 MG25 M1 PO (18:46)
[2019-04-16] MEDS ORDERED: LASIX 40 MG TAB40 MG PO (10:31)
[2019-04-16] MEDS ORDERED: IRON325 PO (10:31)
[2019-04-16] MEDS ORDERED: MELATONIN5 M1 PO (10:31)
[2019-04-16] MEDS ORDERED: CYMBALTA60 MG PO (10:31)
[2019-04-16] MEDS ORDERED: MAGNESIUM-VIT1 EAC1 PO (15:23)
== END 2019-02-03 15:33 | DRG 189 ==
LOC: ER 08:41 → EROBS 11:20 → ICU 11:20
PROVIDERS: Emergency Medicine; ADMIT Internal Medicine
PROC: 5A09357 Assistance with Respiratory Ventilation, Less than 24 Consecutive Hours, Continuous Positive Airway Pressure (ICD-10-PCS; principal; 2019-02-01)
PROC: 5A09357 Assistance with Respiratory Ventilation, Less than 24 Consecutive Hours, Continuous Positive Airway Pressure (ICD-10-PCS; 2019-02-02)
DX: J96.22 Acute and chronic respiratory failure with hypercapnia (principal); J44.1 Chronic obstructive pulmonary disease with (acute) exacerbation; E87.2 Acidosis; F41.9 Anxiety disorder, unspecified; F32.9 Major depressive disorder, single episode, unspecified; I10 Essential (primary) hypertension; F31.9 Bipolar disorder, unspecified; J96.21 Acute and chronic respiratory failure with hypoxia; G89.4 Chronic pain syndrome; F11.10 Opioid abuse, uncomplicated; M25.511 Pain in right shoulder; M25.551 Pain in right hip; Z79.899 Other long term (current) drug therapy; Z88.6 Allergy status to analgesic agent; Z88.8 Allergy status to other drugs, medicaments and biological substances; Z87.891 Personal history of nicotine dependence
CPT/HCPCS: 10078; 10196

== ENCOUNTER 2019-03-15 10:22 | Inpatient (IN) | payer OTHER ==
[~2019-03-15] VITALS: Ht 162.6 cm; Wt 89.8 kg
[2019-03-15] VITALS (46 sets, daily range): BP systolic 91–151; BP diastolic 56–109
[~2019-03-15 10:22] MED LIST changes: +NORCO 5-325 TA1 EAC1 PO; +PREDNISONE 20 M20 M1 PO
[2019-03-15 10:46] LABS: ABSOLUTE NEUTROPHILS 8.3 thou/uL (1.4-8.2); BASOPHILS 0.6 % (0.0-2.0); EOSINOPHILS 0.4 % (0.0-3.0); HEMATOCRIT 28.8 % (37.0-47.0); HEMOGLOBIN 8.9 gm/dL (12.0-15.0); LYMPHOCYTES 9.5 % (24.0-44.0); MCHC 30.9 g/dL (28.0-37.0); MCV 87.4 fL (80.0-100.0); MONOCYTES 9.5 % (1.0-8.0); PLATELET COUNT 195 thou/uL (150-400); RDW 18.7 % (10.5-14.5); WBC 10.4 thou/uL (4.0-11.0)
[2019-03-15 10:54] LABS: ANION GAP < 0 mmol/L (7-16); BUN 17 mg/dL (7-18); CALCIUM 8.6 mg/dL (8.5-10.1); CHLORIDE 99 mmol/L (98-107); CO2 43 mmol/L (21-32); CREATININE 0.7 mg/dL (0.6-1.0); GLUCOSE 132 mg/dL (74-106); POTASSIUM 3.4 mmol/L (3.5-5.1); SODIUM 140 mmol/L (136-145)
[2019-03-15 11:04] LABS: ALBUMIN 2.6 g/dL (3.4-5.0); LIPASE 35 U/L (73-393); SGOT 14 U/L (15-37); SGPT 14 U/L (30-65); TOTAL BILIRUBIN 0.2 mg/dL (<0.1-1.0); TROPONIN-I 0.08 ng/mL (<0.06)
--- NOTE | 2019-03-15 11:07 | EKG ---
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 : 1975 Requested By: Gianluca Deras Order Number: [id number] MD: Eliot Fernandez Measurements Intervals [place] Rate: 117 P: 47 MO: 134 QRS: 24 QRSD: 90 T: 47 QT: 330 QTc: 461 Interpretive Statements Sinus tachycardia RSR' in V1 or V2, right VCD Compared to ECG 02/01/2019 08:59:32 Sinus rhythm no longer present Myocardial infarct finding no longer present Electronically Signed On 03-15-2019 11:07:00 PROJECT DRILLING ENGINEER by Eliot Fernandez [email or web address] <ELECTRONICALLY SIGNED> By: Eliot Fernandez MD 03/15/19 1107 1035 1035 Eliot Fernandez MD /MITZY
[2019-03-15 11:16] LABS: HCO3 44.4 mmol/L (22.0-26.0); PO2 131.5 mmHg (80.0-100.0); pH 7.288 (7.360-7.450); sO2 98.1 % (92.0-98.0)
--- NOTE | 2019-03-15 12:14 | NUR ---
CONSULTED TO PLACE A MIDLINE FOR ADDITIONAL ACCESS FOR THIS PATIENT. SHE VERBALIZED UNDERSTANDING. THE RIGHT UPPER ARM BASILIC WAS WIDLEY PATENT. A #4F MIDLINE WAS PLACED PER POLICY. MIDLINE WAS TRIMMED TO 17CM AND ADVANCED WITHOUT DIFFICULTY. LINE SECURED AND RELEASED FOR USE
[2019-03-15 13:34] LABS: ANISOCYTOSIS 1+; POIKILOCYTOSIS SLIGHT
--- NOTE | 2019-03-15 13:57 | NUR ---
Call placed to Dr Garcia's pager for admission orders. Pt is currently resting with eyes closed. Pt is on BIPAP at 60% FIO2 IPAP 18 EPAP 6 Rate 10. Pt has a midline in right arm. No IV fluids currenlty infusing. Saline lock (field) left hand and Saline lock right forearm. Dr Garcia returned call promptly and will enter admission orders JIMENA. Sinus tachycardia-rate 100's. O2 sat 98%.
[2019-03-15 15:08] LABS: URINE BILIRUBIN NEGATIVE (Negative); URINE BLOOD NEGATIVE (Negative); URINE CLARITY CLEAR; URINE COLOR YELLOW; URINE GLUCOSE-RANDOM* 1+ (Negative); URINE KETONES NEGATIVE (Negative); URINE LEUKOCYTES NEGATIVE (Negative); URINE NITRITE NEGATIVE (Negative); URINE PROTEIN (DIPSTICK) TRACE (Negative)
[2019-03-15 16:11] LABS: HCO3 37.7 mmol/L (22.0-26.0); PCO2 157.8 mmHg (35.0-45.0); PO2 84.2 mmHg (80.0-100.0); pH 6.996 (7.360-7.450); sO2 87.8 % (92.0-98.0)
--- NOTE | 2019-03-15 16:27 | NUR ---
AT 1549, PATIENT CALLED ON THE CALL LIGHT, AT THAT SAME TIME THE MONITOR ALARM SOUNDED THAT PATIENT WAS DESATURATING WITH SAT OF 85% RN WENT INTO THE ROOM AND PATIENT SEEMED TO BE IN DISTRESS NODDING YES TO WHETHER SHE WAS HAVING TROUBLE BREATHING. PATIENT WAS STILL ON BIPAP AND IT WAS NOT ALARMING. PATIENT CONTINUED TO DESATURATE. CALL PLACED TO RT MARTA AND ANOTHER RN WENT TO GET A NASAL CANNULA. PATIENT PLACED ON CANNULA WHILE RT WAS TROUBLESHOOTING THE BIPAP. PATIENT WAS THEN PLACED ON BIPAP AT 100% AND SATS STARTED TO COME UP SLOWLY. BY THIS TIME THE PRIMARY RN JOSE WAS BACK FROM LUNCH BREAK AND RT MARTA OBTAINED ABG AND CALL PLACED TO DR. RAMOS.
--- NOTE | 2019-03-15 17:05 | NUR ---
Change of status report and ABG with critical values called to Dr Marcelo (see critical care values). Dr Marcelo came in and is here now preparing for intubation. Nikhil from RT here to assist. 7.5 ET tube used and placed at 25 cm at teeth. Propofol and Levophed ordered by Dr Marcelo.
[2019-03-15 17:50] LABS: BE(vivo) 8.9 mmol/L (-2 to +3); HCO3 39.5 mmol/L (22.0-26.0); PCO2 100.7 mmHg (35.0-45.0); PO2 98.1 mmHg (80.0-100.0); pH 7.211 (7.360-7.450); sO2 95.5 % (92.0-98.0)
--- NOTE | 2019-03-15 18:30 | NUR ---
Pt intubated without difficulty by Dr Marcelo. Pt becoming more alert but remains drowsy. Pt also impulsive and will attempt to reach toward her ET tube and OG. Luna catheter placed now. Restraints placed to prevent removal of ET tube.
[2019-03-16] VITALS (67 sets, daily range): BP systolic 91–127; BP diastolic 56–84
[2019-03-16 06:12] LABS: ABSOLUTE NEUTROPHILS 8.1 thou/uL (1.4-8.2); BASOPHILS 0.1 % (0.0-2.0); HEMATOCRIT 27.9 % (37.0-47.0); HEMOGLOBIN 8.5 gm/dL (12.0-15.0); LYMPHOCYTES 6.3 % (24.0-44.0); MCH 26.7 pg (26.0-34.0); MCHC 30.4 g/dL (28.0-37.0); MONOCYTES 4.8 % (1.0-8.0); PLATELET COUNT 197 thou/uL (150-400); POLYS 88.8 % (36.0-66.0); RBC 3.17 mil/uL (4.20-5.00); RDW 19.3 % (10.5-14.5); WBC 9.1 thou/uL (4.0-11.0)
[2019-03-16 06:16] LABS: BE(vivo) 10.6 mmol/L (-2 to +3); HCO3 36.9 mmol/L (22.0-26.0); PCO2 60.5 mmHg (35.0-45.0); PO2 82.8 mmHg (80.0-100.0); pH 7.403 (7.360-7.450); sO2 95.9 % (92.0-98.0)
[2019-03-16 06:25] LABS: CALCIUM 8.4 mg/dL (8.5-10.1); CREATININE 0.8 mg/dL (0.6-1.0); POTASSIUM 3.4 mmol/L (3.5-5.1)
[2019-03-16 11:07] LABS: BE(vivo) 7.2 mmol/L (-2 to +3); HCO3 34.3 mmol/L (22.0-26.0); PCO2 64.4 mmHg (35.0-45.0); PO2 90.3 mmHg (80.0-100.0); pH 7.344 (7.360-7.450); sO2 96.2 % (92.0-98.0)
--- NOTE | 2019-03-16 13:15 | NUR ---
RT performed 30 minute CPAP trial with patient with no ABG ordered. PT tolerated well. RT called the CPAP trial information directly to Dr Marcelo. Dr Marcelo by for rounds now and wants to leave patient on the ventilator for today. Continue current support. IV nurse dc'd right midline and placed triple lumen PICC left upper arm.
--- NOTE | 2019-03-16 14:23 | NUR ---
VAT CONSULTED FOR A PICC FOR THIS PT. SHE HAS A ML IN PLACE BUT HAS MULITPLE IV MEDS THAT ARE VESICANTS, PRESSERS, VANCO, ETC. GRAM +RODS IN BC FROM 03/15/19. PLACED A 5FRTLPICC LUABASILIC AND REMOVED THE ML. TIP OF PICC AT THE CAJ WITH CXR CONFIRMATION. FOR MORE DETAILS PLEASE SEE NI
--- NOTE | 2019-03-16 17:50 | NUR ---
Pt wrote note earlier today that she would like to have her brother notified of her admission. Call placed to José Luis Neil (pt's brother) [phone]. Notified that pt was admitted through the emergency dept yesterday and is now in the ICU. Brother asked appropriate questions about pt's condition and reported that he was aware she had been transported to the hospital. Provided with room number, visiting hours and pt's ID number if he calls in to check on her. Brother thanked me for the information. Stated pt does not have a designated durable power of commercial leasing manager for health care.
--- NOTE | 2019-03-16 18:43 | NUR ---
pt is contiuning on vent at A/C , FO2 50% and IV abx , pt 's ET tube is in place, 25cm at low lip, pt is contnuing iv propofol sedation and RN has titration to achieve RASS level of -1,0 or +1, pt has both wrist restraints, pt's vs, bs and o2sat are stable at this time.pt's iv levophed is titration to off at 1840pm, RN will report to next shift to keep eye on pt.
[2019-03-17] VITALS (22 sets, daily range): BP systolic 109–167; BP diastolic 68–98
[2019-03-17 05:52] LABS: CREATININE 0.5 mg/dL (0.6-1.0); POTASSIUM 3.4 mmol/L (3.5-5.1)
[2019-03-17 08:21] LABS: BE(vivo) 5.3 mmol/L (-2 to +3); HCO3 30.5 mmol/L (22.0-26.0); PCO2 48.4 mmHg (35.0-45.0); PO2 72.2 mmHg (80.0-100.0); pH 7.417 (7.360-7.450); sO2 94.6 % (92.0-98.0)
--- NOTE | 2019-03-17 15:29 | NUR ---
INITIAL ASSESSMENT: ISH reviewed chart and spoke with attending physician. Pt was admitted from [facility] due to acute respiratory failure. Pt with hx of COPD. Pt is currently intubated and sedated. Pt with hx of bipolar disease/schizoaffective disorder. Pt is currently on IV abx. Pt to do cpap trials tomorrow. Pt unable to answer questions. ISH spoke with pt's case packer with Sophia Barnard ([phone]) via phone to provide update. Sophia confirms that pt is a custodial care resident at [facility] and plan will be for pt to return there when medically stable. Pt's brother and father can be contacted if needed. Contact info in computer. supply planner to fax clinical updates to [facility] tomorrow. ISH is following to assist as needed with discharge planning.
[2019-03-17 15:58] LABS: BE(vivo) 4.1 mmol/L (-2 to +3); HCO3 29.9 mmol/L (22.0-26.0); PCO2 51.5 mmHg (35.0-45.0); PO2 74.6 mmHg (80.0-100.0); pH 7.382 (7.360-7.450); sO2 94.6 % (92.0-98.0)
--- NOTE | 2019-03-17 17:01 | NUR ---
FAXED CLINICAL UPDATE TO [facility] RECEIVED CONFIRMATION AND LEFT MSG WITH PEDRO IN ADM. DP TOO FOLLOW.
[2019-03-18] VITALS (23 sets, daily range): BP systolic 123–179; BP diastolic 66–114
[2019-03-18 05:11] LABS: HEMATOCRIT 29.3 % (37.0-47.0); MCH 26.4 pg (26.0-34.0); MCHC 30.6 g/dL (28.0-37.0); MCV 86.5 fL (80.0-100.0); RBC 3.39 mil/uL (4.20-5.00); RDW 19.8 % (10.5-14.5); WBC 7.6 thou/uL (4.0-11.0)
[2019-03-18 05:13] LABS: CALCIUM 8.9 mg/dL (8.5-10.1); CREATININE 0.6 mg/dL (0.6-1.0); POTASSIUM 3.9 mmol/L (3.5-5.1)
[2019-03-18 05:44] LABS: BE(vivo) 4.3 mmol/L (-2 to +3); PCO2 50.5 mmHg (35.0-45.0); PO2 64.4 mmHg (80.0-100.0); pH 7.392 (7.360-7.450); sO2 92.2 % (92.0-98.0)
--- NOTE | 2019-03-18 06:25 | NUR ---
Pt is progressing toward care plan goals. Lab values are normalizing. Due to chronic pain, she will be assisted out of bed and to the recliner. Luna catheter remains patent, draining clear yellow urine, approx 1400 ml's overnight. Pt is requesting a nicotine patch, stating it may decrease her anxiety. Pt has tolerated PO ice chips, and is ready to advance to a diet.
--- NOTE | 2019-03-18 09:06 | NUR ---
Assess due ot npo status day 3 in ICU. Admit with recurrent respiratory failure. Hx substance abuse, prior intubation, schizoaffective disorder. Just recent extubated and plans for diet advance. Usual wt is 170 lb per pt, current wts trending higher than usual. Assess as low nutrtion risk
--- NOTE | 2019-03-18 19:38 | NUR ---
PATIENT OXYGENATION TODAY RANGED FROM 84% WITH ACTIVITY TO 88-94% WITH REST. SHE HAS MINIMAL RESERVE HOWEVER IS ABLE TO RECOVER WITHIN APPROXIMATELY FIVE MINUTES. SHE WAS TACHYCARDIC TODAY AFTER GETTING FROM THE CHAIR TO THE COMMODE AND BACK TO BED, WITH HEART RATE 130'S. WHEN SHE RECOVERED HER HEART RATE WENT TO THE LOWER 100'S BPM RANGE. SHE IS EXPRESSING THAT THE PAIN MEDICATION HELPS A LITTLE, BUT KNOWS THE [facility] WILL ONLY GIVE HER TYLENOL WHEN SHE RETURNS. PLAN OF CARE IS TO CONTINUE MONITOR PATIENT OXYGENATION, HELP HER WITH RECOVERY TECHNIQUES POST ACTIVITY.
[2019-03-19] VITALS (15 sets, daily range): BP systolic 120–156; BP diastolic 63–87
--- NOTE | 2019-03-19 04:15 | NUR ---
NO OVERNIGHT EVENTS. PT. DID NOT SLEEP VERY WELL DUE TO SOME ANXIETY. PT. ON BIPAP FOR 4.5 HOURS TONIGHT. ASSESSMENTS AND VITAL SIGNS CHARTED. CONTINUE TO FOLLOW POC. WILL CONTINUE TO MONITOR.
--- NOTE | 2019-03-19 10:32 | NUR ---
SW reviewed chart and spoke with nursing. Pt was extubated and is progressing towards goals for discharge. SW met with pt at bedside. Introduced role of SW. Pt is alert/orientated x 4. Pt states she does have a bipap at the facility and is normally on 2L of continuous O2. SW offered to update pt's family. Pt states that she has been keeping her father and brother updated. Pt confirms her plan to return to [facility]. Pt is aware that discharge may be soon. land planner to fax updates to [facility] and check pt's available Medicare skilled days. SW is following to assist as needed with discharge planning.
[2019-03-19] MEDS ORDERED: IPRAT-ALBUT 0.5-3 ML INH (10:43)
[2019-03-19] MEDS ORDERED: PRINIVIL5 MG PO (10:44)
[2019-03-19] MEDS ORDERED: LORAZEPAM 0.50.5 MG PO (10:45)
[2019-03-19] MEDS ORDERED: PREDNISONE 20 M20 M1 PO (10:46)
[2019-03-19] MEDS ORDERED: LEVAQUIN 750 M750 MG PO (10:48)
--- NOTE | 2019-03-19 11:13 | NUR ---
Pt requesting anti-anxiety medication all morning. Dr. Stovall in to see patient. Orders rec'd. Ativan 0.5mg po given as ordered.
--- NOTE | 2019-03-19 14:56 | NUR ---
STABLE FOR DISCHARGE TODAY BACK TO [facility], SKILLED. RESIDES IN LTC. PEDRO IN ADMISSIONS NOTIFIED AND DC ORDERS FAXED. CHART COPIED. PT AGREEABLE TO DC. FACILITY W/C VAN CAN STERILE PROCESSING MANAGER PT AT 1530. RN UPDATED AND GIVEN # FOR REPORT.
--- NOTE | 2019-03-19 15:45 | NUR ---
Report called to assistedLorrie leigh LPN. LEFT upper arm PICC line dc'd. Pt discharged at 1530, ride present but pt needing assistance with dressing etc. Discharge paperwork signed. Admission consents signed. Pt left room at 1545 after discharge instructions reviewed.
== END 2019-03-19 15:45 | DRG 871 ==
LOC: ER 10:22 → ICU 13:09 → EROBS 13:09 → ICU 13:10
PROVIDERS: Emergency Medicine; Internal Medicine Pulmonary Disease; Pediatrics; ADMIT Internal Medicine
PROC: 5A09357 Assistance with Respiratory Ventilation, Less than 24 Consecutive Hours, Continuous Positive Airway Pressure (ICD-10-PCS; principal; 2019-03-15)
PROC: 02HV33Z Insertion of Infusion Device into Superior Vena Cava, Percutaneous Approach (ICD-10-PCS; principal; 2019-03-15)
PROC: 5A1945Z Respiratory Ventilation, 24-96 Consecutive Hours (ICD-10-PCS; principal; 2019-03-15)
PROC: 0BH17EZ Insertion of Endotracheal Airway into Trachea, Via Natural or Artificial Opening (ICD-10-PCS; principal; 2019-03-15)
PROC: 5A09357 Assistance with Respiratory Ventilation, Less than 24 Consecutive Hours, Continuous Positive Airway Pressure (ICD-10-PCS; 2019-03-17)
PROC: 5A09357 Assistance with Respiratory Ventilation, Less than 24 Consecutive Hours, Continuous Positive Airway Pressure (ICD-10-PCS; 2019-03-18)
PROC: 5A09357 Assistance with Respiratory Ventilation, Less than 24 Consecutive Hours, Continuous Positive Airway Pressure (ICD-10-PCS; 2019-03-19)
DX: A41.9 Sepsis, unspecified organism (principal); J96.22 Acute and chronic respiratory failure with hypercapnia; J18.9 Pneumonia, unspecified organism; G92 Toxic encephalopathy; J96.21 Acute and chronic respiratory failure with hypoxia; R65.21 Severe sepsis with septic shock; J44.0 Chronic obstructive pulmonary disease with (acute) lower respiratory infection; J44.1 Chronic obstructive pulmonary disease with (acute) exacerbation; E87.3 Alkalosis; R19.7 Diarrhea, unspecified; E66.01 Morbid (severe) obesity due to excess calories; F19.10 Other psychoactive substance abuse, uncomplicated; D64.9 Anemia, unspecified; I10 Essential (primary) hypertension; G89.4 Chronic pain syndrome; F41.9 Anxiety disorder, unspecified; F31.9 Bipolar disorder, unspecified; Z99.81 Dependence on supplemental oxygen; Z88.6 Allergy status to analgesic agent; Z79.899 Other long term (current) drug therapy; Z87.891 Personal history of nicotine dependence; Z68.34 Body mass index [BMI] 34.0-34.9, adult; Z91.19 Patient's noncompliance with other medical treatment and regimen
CPT/HCPCS: 10078; 27000

== ENCOUNTER 2019-03-28 12:50 | Inpatient (IN) | payer OTHER ==
[2019-03-28] VITALS (36 sets, daily range): BP systolic 55–139; BP diastolic 26–75
[~2019-03-28] VITALS: Ht 165.1 cm; Wt 96.2 kg
[~2019-03-28 12:50] MED LIST changes: +LEVAQUIN 750 M750 MG PO; +LORAZEPAM 0.50.5 MG PO; +PRINIVIL5 MG PO
--- NOTE | 2019-03-28 13:37 | NUR ---
1336- ETOMIDATE IN 1337- 100MG SUCC DR. GEE AT BEDSIDE TO INTUBATE. RT AT BEDSIDE. ET TUBE- 23 AT [facility]- SIZE 7.0 TUBE + COLOR CHANGE
[2019-03-28 13:40] LABS: HEMATOCRIT 28.8 % (37.0-47.0); HEMOGLOBIN 8.7 gm/dL (12.0-15.0); MCH 26.4 pg (26.0-34.0); RBC 3.27 mil/uL (4.20-5.00); WBC 7.1 thou/uL (4.0-11.0)
[2019-03-28 13:57] LABS: BUN 9 mg/dL (7-18); CALCIUM 8.8 mg/dL (8.5-10.1); CHLORIDE 100 mmol/L (98-107); CREATININE 0.6 mg/dL (0.6-1.0); GLUCOSE 143 mg/dL (74-106); POTASSIUM 4.2 mmol/L (3.5-5.1); SODIUM 145 mmol/L (136-145)
[2019-03-28 14:07] LABS: TROPONIN-I <0.06 ng/mL (<0.06)
[2019-03-28 14:09] LABS: CO2 > 45 mmol/L (21-32)
[2019-03-28 14:10] LABS: BE(vivo) 15.2 mmol/L (-2 to +3); HCO3 43.5 mmol/L (22.0-26.0); PCO2 82.3 mmHg (35.0-45.0); PO2 73.4 mmHg (80.0-100.0); pH 7.341 (7.360-7.450)
[2019-03-28 16:40] LABS: FOLIC ACID 18.5 ng/mL (8.6-58.9); TSH 2.115 uIU/mL (0.358-3.740)
[2019-03-28 16:46] LABS: % SATURATION 43 % (20-39); IRON 171 ug/dL (50-170); TIBC 396 ug/dL (250-450)
[2019-03-28 17:40] LABS: AMP/METHAMP Negative (Negative); BARBITURATES Negative (Negative); BENZODIAZEPINES Negative (Negative); COCAINE Negative (Negative); METHADONE Negative (Negative); OPIATES Negative (Negative); PCP Negative (Negative); URINE BILIRUBIN NEGATIVE (Negative); URINE BLOOD NEGATIVE (Negative); URINE CLARITY CLEAR; URINE COLOR YELLOW; URINE GLUCOSE-RANDOM* NEGATIVE (Negative); URINE KETONES NEGATIVE (Negative); URINE LEUKOCYTES-REFLEX NEGATIVE (Negative); URINE NITRITE-REFLEX NEGATIVE (Negative); URINE PROTEIN (DIPSTICK) 2+ (Negative)
[2019-03-28 17:54] LABS: CASTS None Seen /LPF (None Seen); SQUAMOUS 0-3 Few /LPF (0-3); URINE WBC-REFLEX None Seen /HPF (0-5)
[2019-03-28 17:55] LABS: AMORPHOUS PHOSPHATES Moderate /LPF (None Seen); BACTERIA-REFLEX 1-9 Few /HPF (None Seen); URINE RBC None Seen /HPF (0-2)
--- NOTE | 2019-03-28 18:40 | NUR ---
MALFUNCTION WITH VITAL SIGNS. THIS RN HAS BEEN MONITORING VS SINCE ADMISSION SBP HAS BEEN RUNNING 90-113/50S. SAT 91-96% HR 55-65. RR 18-20
--- NOTE | 2019-03-28 19:39 | NUR ---
ADMIT ICU RESP FAILURE ON VENT. FOLLOWS COMMANDS. VSS. SEDATED ON PROPOFOL.
--- NOTE | 2019-03-28 22:55 | NUR ---
PT. DESAT TO LOW 80S AT 2100, HEART RATE INCREASED TO SINUS TACHYCARDIA, AND BLOOD PRESSURE DECREASED. SEE VITAL SIGNS IN CHART. RN GYN CALLED. FLUID BLOUS GIVEN. BLOOD PRESSURE STILL REMAINS LOW. DR. RAMOS CALLED, ORDERED RECIEVED AND LABS TO BE DRAWN. WILL GIVE DR. RAMOS BACK WHEN LAB RESULTS ARE BACK.
[2019-03-28 23:23] LABS: BE(vivo) 7.9 mmol/L (-2 to +3); HCO3 34.6 mmol/L (22.0-26.0); PCO2 61.1 mmHg (35.0-45.0); PO2 223.9 mmHg (80.0-100.0); pH 7.371 (7.360-7.450); sO2 99.4 % (92.0-98.0)
[2019-03-29] VITALS (49 sets, daily range): BP systolic 98–190; BP diastolic 41–87
[2019-03-29 00:09] LABS: HEMATOCRIT 30.8 % (37.0-47.0); HEMOGLOBIN 9.2 gm/dL (12.0-15.0); MCHC 29.8 g/dL (28.0-37.0); RBC 3.54 mil/uL (4.20-5.00); RDW 19.2 % (10.5-14.5)
[2019-03-29 00:14] LABS: CALCIUM 8.1 mg/dL (8.5-10.1); CREATININE 0.7 mg/dL (0.6-1.0); POTASSIUM 3.5 mmol/L (3.5-5.1)
[2019-03-29 00:25] LABS: WBC 26.9 thou/uL (4.0-11.0)
--- NOTE | 2019-03-29 01:45 | NUR ---
PT. VSS AND BP RETURNED TO BASELINE AT 0000.
--- NOTE | 2019-03-29 01:46 | NUR ---
PT. HAS NOT BEEN ON RESTRAINTS SINCE COMING UP FROM ED. THERE IS NO INDICATION TO CONTINUE THE ORDER. ORDER DC'D.
[2019-03-29 03:53] LABS: CALCIUM 8.5 mg/dL (8.5-10.1); CREATININE 0.8 mg/dL (0.6-1.0)
[2019-03-29 03:58] LABS: POTASSIUM 5.6 mmol/L (3.5-5.1)
--- NOTE | 2019-03-29 05:09 | NUR ---
NO FURTHER EVENTS. VSS. PT. REMAINS CALM WITHOUT USE OF SEDATION. ASSESSMENTS AND VITAL SIGNS CHARTED. CONTINUE TO FOLLOW POC. WILL CONTINUE TO MONITOR.
[2019-03-29 11:57] LABS: BE(vivo) 11.8 mmol/L (-2 to +3); HCO3 36.6 mmol/L (22.0-26.0); PCO2 50.9 mmHg (35.0-45.0); PO2 79.1 mmHg (80.0-100.0); pH 7.475 (7.360-7.450); sO2 96.2 % (92.0-98.0)
[2019-03-29 12:20] LABS: ABSOLUTE NEUTROPHILS 14.1 thou/uL (1.4-8.2); BASOPHILS 0.6 % (0.0-2.0); HEMATOCRIT 24.7 % (37.0-47.0); HEMOGLOBIN 7.7 gm/dL (12.0-15.0); LYMPHOCYTES 3.5 % (24.0-44.0); MCH 26.4 pg (26.0-34.0); MCHC 31.1 g/dL (28.0-37.0); MCV 84.9 fL (80.0-100.0); MONOCYTES 1.9 % (1.0-8.0); RBC 2.91 mil/uL (4.20-5.00)
[2019-03-29 12:21] LABS: PLATELET COUNT 227 thou/uL (150-400)
--- NOTE | 2019-03-29 13:02 | NUR ---
VAT CONSULTED FOR A PICC FOR IV ABX WITH AN ELEVATED WBC OF 26. A 4FRDBLPICC PLACED RUABASILIC AND IS RELEASED FOR USE. PLEASE SEE THE NI FOR DETAILS
[2019-03-29 13:13] LABS: ANISOCYTOSIS 2+
--- NOTE | 2019-03-29 14:00 | NUR ---
CALLED DR. RAMOS, INFORMED HIM PT WANTS TO REST TODAY AND NOT DO A CPAP TRIAL. NO NEW ORDERS.
--- NOTE | 2019-03-29 18:35 | NUR ---
PT REFUSES TEDS HOSE, SHE DOES NOT WANT ANYTHING ON HER FEET. ENCOURAGED TO MOVE AROUND AND DO PEDAL PUSHES. PT VERBALIZED UNDERSTANDING.
--- NOTE | 2019-03-29 21:32 | NUR ---
AT 1900 PT. WROTE NOTE STATING SHE DID SOMETHING WRONG WITH HOLSTER/ET TUBE SET UP. 02 SATURATION STARTED DROPPING, RESPIRATORY WAS PAGED, AND ICE NURSES STARTED BAGGING PT. SATURATION DID NOT GO UP, CODE WAS CALLED. ED DOCTOR DECIDED IT WAS BEST TO SWITCH OUT ET TUBES ON PT. ONCE THIS WAS PERFORMED PT. O2 SATURATION RETURNED TO BASE LINE OF ABOVE 95%. PT. WAS PLACED ON RESTRAINTS. RESPIRATORY AND RIG SUPERVISOR WERE UPDATED ON PT. WILL CONTINUE TO MONITOR.
[2019-03-30] VITALS (24 sets, daily range): BP systolic 92–129; BP diastolic 52–83
--- NOTE | 2019-03-30 04:44 | NUR ---
NO OTHR EVENTS THROUGHOUT NIGHT. PT. HAS INCREASED PERIODS OF ANXIETY THROUGHOUT NIGHT DUE TO THE RESTRAINTS. ASSESSMENTS AND VITAL SIGNS CHARTED. CONTINUE TO FOLLOW POC. MEDICATION TITRATION CHARTED. WILL CONTINUE TO MONITOR.
[2019-03-30 05:20] LABS: BE(vivo) 12.9 mmol/L (-2 to +3); HCO3 38.5 mmol/L (22.0-26.0); PCO2 57.7 mmHg (35.0-45.0); PO2 59.1 mmHg (80.0-100.0); pH 7.442 (7.360-7.450); sO2 90.9 % (92.0-98.0)
[2019-03-30 06:04] LABS: HEMATOCRIT 22.5 % (37.0-47.0); HEMOGLOBIN 6.8 gm/dL (12.0-15.0); MCH 26.2 pg (26.0-34.0); MCHC 30.2 g/dL (28.0-37.0); MCV 86.8 fL (80.0-100.0); RBC 2.6 mil/uL (4.20-5.00)
[2019-03-30 06:19] LABS: CALCIUM 8.7 mg/dL (8.5-10.1); CREATININE 0.6 mg/dL (0.6-1.0); MAGNESIUM 1.8 mg/dL (1.8-2.4); POTASSIUM 3.4 mmol/L (3.5-5.1)
--- NOTE | 2019-03-30 16:55 | NUR ---
ASSUMED CARE AT 0700, PATIENT AWAKE AND ALERT, FOLLOWING COMMANDS. PLEASANT AND COOPERATIVE WITH CARES. PATIENT'S RESTRAINTS RELEASED SHE WAS FOLLOWING COMMANDS AND PROMISED NOT TO PULL ON HER ETT. AT APPROX 1300 PATIENT BECAME RESTLESS AND HAD HER HAND ON HER TUBE AT ONE POINT THEN SHE WAS LEANING OVER THE BED RAIL. SEDATION TURNED UP, HOWEVER PATIENT HR DROPPED LOW 42. SEDATION DECREASED, PATIENT PLACED IN RESTRAINTS SO SHE DIDN'T PULL HER TUBE AND DR ROQUE WAS NOTIFIED OF THE HR. NEW ORDER FOR RESTRAINTS AND WAS TOLD JUST TO WATCH THE PATIENT SINCE SHE WAS NOT SYMPTOMATIC WITH THE BRADYCARDIA. NO FURTHER ISSUES SINCE THEN. WOUND NOTED TO LEFT PROXIMAL MEDIAL THIGH, PICTURES TAKEN AND MEPLEX PLACED. NO FURTHER CONCERNS AT THIS TIME. WILL CONTINUE TO MONITOR AND CARE PER PLAN OF CARE.
[2019-03-31] VITALS (24 sets, daily range): BP systolic 101–149; BP diastolic 62–102
--- NOTE | 2019-03-31 04:31 | NUR ---
NO OVERNIGHT EVENTS. PT. HAS PERIODS OF INCREASED ANXIETY, UNABLE TO SLEEP WELL. ASSESSMENTS AND VITAL SIGNS CHARTED. MEDICATION TITRATION CHARTED. CONTINUE TO FOLLOW POC. PT. SHOULD BE ABLE TO DO CPAP TRIAL TODAY. WILL CONTINUE TO MONITOR.
[2019-03-31 06:04] LABS: HEMATOCRIT 23.4 % (37.0-47.0); HEMOGLOBIN 7.3 gm/dL (12.0-15.0); MCH 26.7 pg (26.0-34.0); MCHC 31.4 g/dL (28.0-37.0); MCV 85.1 fL (80.0-100.0); RBC 2.75 mil/uL (4.20-5.00); RDW 19.2 % (10.5-14.5)
[2019-03-31 06:32] LABS: CALCIUM 9.5 mg/dL (8.5-10.1); CREATININE 0.5 mg/dL (0.6-1.0); POTASSIUM 3.1 mmol/L (3.5-5.1)
--- NOTE | 2019-03-31 07:34 | EKG ---
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: WG : 1975 Requested By: Richard Garcia Order Number: [id number] MD: Kamar Finley Measurements Intervals [place] Rate: 85 P: 66 RI: 119 QRS: 33 QRSD: 88 T: 40 QT: 387 QTc: 461 Interpretive Statements Sinus rhythm Borderline short RI interval Compared to ECG 03/15/2019 10:35:56 Sinus tachycardia no longer present Electronically Signed On 03-31-2019 7:34:12 MOTION PICTURE SET UP WORKER by Kamar Finley [email or web address] <ELECTRONICALLY SIGNED> By: Kamar Finley MD, [facility] 03/31/19 0734 1256 55 Kamar Finley MD, FACC /EPI
--- NOTE | 2019-03-31 07:44 | EKG ---
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: aimee : 1975 Requested By: Louie Marcelo Order Number: [id number] MD: Kamar Finley Measurements Intervals [place] Rate: 79 P: 73 PA: 114 QRS: 48 QRSD: 74 T: 66 QT: 410 QTc: 471 Interpretive Statements Sinus rhythm Borderline short PA interval Compared to ECG 03/15/2019 10:35:56 Sinus tachycardia no longer present Electronically Signed On 03-31-2019 7:44:16 SHIP ENGINEER by Kamar Finley [email or web address] <ELECTRONICALLY SIGNED> By: Kamar Finley MD, [facility] 03/31/19 0744 D: 11/2338 38 Kamar Finley MD, FACC /EPI
--- NOTE | 2019-03-31 10:40 | NUR ---
If unable to extubate, recommend change tube feeding formula to Vital High Protein at goal of 55ml/hr
[2019-03-31 13:59] LABS: BE(vivo) 10.7 mmol/L (-2 to +3); HCO3 34.6 mmol/L (22.0-26.0); PCO2 44.1 mmHg (35.0-45.0); PO2 84.8 mmHg (80.0-100.0); pH 7.513 (7.360-7.450); sO2 97.1 % (92.0-98.0)
[2019-03-31 15:53] LABS: CALCIUM 9.2 mg/dL (8.5-10.1); CREATININE 0.5 mg/dL (0.6-1.0); MAGNESIUM 2.1 mg/dL (1.8-2.4); POTASSIUM 3.1 mmol/L (3.5-5.1)
--- NOTE | 2019-03-31 16:30 | NUR ---
INITIAL ASSESSMENT: ISH reviewed chart and spoke with nursing and attending physician. Pt was admitted from [facility] due to acute respiratory failure/hypoxia. Pt was extubated earlier this afternoon and is on O2 via NC. Pt currently is in ICU. ISH met with pt at bedside. Introduced role of SW. Pt is alert/orientated. Pt states that her public policy analyst through [employer], Sophia, was just here and would like an update. Pt confirms [facility]. transportation planner to [facility] info to [facility] tomorrow. ISH spoke with Sophia via phone to provide update. Sophia states that pt may not be compliant with wearing her bipap at the facility. Pt has orders for bipap and 3-4L via [place]. ISH is following to assist as needed with discharge planning.
[2019-04-01] VITALS (9 sets, daily range): BP systolic 110–139; BP diastolic 68–85
--- NOTE | 2019-04-01 10:39 | NUR ---
ASSUMED CARES AT 0700, PATIENT A&O X 4. PLEASANT AND COOPERATIVE WITH CARES. C/O PAIN ALMOST ALWAYS AND WANTS MORPHINE. MORPHINE GIVEN TOLERATED. SPEECH THERAPY INTO SEE PATIENT, PATIENT O2 SATS DECREASE WHILE EATING AND THERAPY DECIDED THAT SHE SHOULD STAY NPO EXCEPT MEDS FOR A LITTLE WHILE LONGER. PATIENT WAS CAUGHT REACHING OVER THE SIDE OF THE BED AND EATING WHAT SPEECH THERAPY HAD THROWN AWAY. DISCUSSED WITH PATIENT THE RISKS OF EATING BEFORE SHE WAS READY AND I ALSO CLEANED OUT THE TRASH TO PREVENT THAT FROM HAPPENING. PHYSICAL THERAPY IN ROOM NOW WORKING WITH MOVEMENT. PATIENT ABLE TO TRANSFER TO CHAIR WITH MINIMAL HELP FROM THERAPY. [facility]. NO FURTHER CONCERNS AT THIS TIME. WILL CONTINUE TO MONITOR AND CARE PER PLAN OF CARE.
[2019-04-01 11:28] LABS: % SATURATION 6 % (20-39); IRON 26 ug/dL (50-170); TIBC 404 ug/dL (250-450)
[2019-04-01 11:55] LABS: FOLIC ACID 16.4 ng/mL (8.6-58.9)
--- NOTE | 2019-04-01 12:55 | NUR ---
Update given to the liason at [facility]. Pt is in the ICU but is doing better and has transfer orders. She may be ready to return to the [facility] tomorrow. They are holding her bed and can accept for readmission when ready.
[2019-04-02 04:00] VITALS: BP 144/67
--- NOTE | 2019-04-02 04:41 | NUR ---
PT ON 6. ALERT AND ORIENTED. REPORTS SHOULDER PAIN, PRN PAIN MEDS GIVE. DENIES CHEST PAIN SOB, OR DIARRHEA. SR/SB ON THE MONITOR. PT ENCOURAGED TO REMAIN NPO UNTIL SWALLOWING STUDY IS COMPLETE. NO FURTHER C/O. PT OTHERWISE STABLE.
[2019-04-02 08:00] VITALS: BP 134/81
[2019-04-02 11:21] LABS: HEMATOCRIT 24.3 % (37.0-47.0); HEMOGLOBIN 7.5 gm/dL (12.0-15.0)
[2019-04-02 12:22] VITALS: BP 130/83
--- NOTE | 2019-04-02 13:53 | NUR ---
[facility] updated on care. Possible dc Sunday updated facility. [email or web address] following
--- NOTE | 2019-04-02 14:21 | NUR ---
WOUND CONSULT; RN NOTIFIED RE; A LEFT INNER THIGH WOUND. THE WOUND MEASURES 1 X 1.5 X 0.1 YELLOWISH WOUND BED. MILDLY TENDER TO TOUCH. LIKELY A SKIN TEAR FROM TAPE. RECOMMENDATIONS; THERAHONEY TO WOUND BED, COVER WITH A BOARDER FOAM CHANGE M/W/F PRN DISCUSSED WITH HILLARY
[2019-04-02 16:00] VITALS: BP 135/93
--- NOTE | 2019-04-02 17:51 | NUR ---
ASSUMMED PT CARE AT APPROXIMATELY 0700. PT A&O X4. ASSESSMENT CHARTED. FALL PRECAUTIONS IN PLACE. PT DENIES HAVING CHEST PAIN. PT STATES SHE HAS SOB ON EXERSION. PT O2 SAT STABLE. PT STATES SHE HAS CHRONIC SHOULDER AND HIP PAIN. PT RECEIVED ANALGESICS. PT STATED ANALGESICS HELPED RELIEVE PAIN. VITAL SIGNS STABLE. BLOOD SUGARS STABLE. NEW WOUND FOUND ON L INNER THIGH. DR NOTIFIED. DR ORDERED TO CONSULT WOUND CARE. PICTURE OF WOUND IN CHART. ORDERED TO TITRATE OXYGEN DOWN. TITRATING OXYGEN DOWN. O2 SAT STABLE. PT UP TO COMMODE C STANDBY ASSIST. NOTIFIED OF PREVIOUS LOW HGB LEVEL. ORDERED NEW LAB. NEW HGB LEVEL REPORTED TO . STATED TO CONTINUE MONITORING. PT COMFORTABLE IN BED. PT DENIES HAVING FURTHER CONCERNS.
[2019-04-02 19:25] VITALS: BP 147/96
[2019-04-03 04:41] LABS: CREATININE 0.6 mg/dL (0.6-1.0); POTASSIUM 3.4 mmol/L (3.5-5.1)
[2019-04-03 04:44] VITALS: BP 127/79
--- NOTE | 2019-04-03 05:36 | NUR ---
ASSUMED PT CARE AT 1900. VSS. A&OX4. PT O2 TITRATED TO 3L LAST NIGHT, PT IS SATING FINE. COMPLAINED OF PAIN, MANAGED PER JUL. CATHFLOW USED TO DECLOG PICC LINE, PICC NOW DRAWS BLOOD AND FLUSHES WELL. PT IS STABE, NO FURTHER COMPLAINTS WILL CONTINUE TO MONITOR.
[2019-04-03 07:10] VITALS: BP 133/80
[2019-04-03 11:15] VITALS: BP 142/95
[2019-04-03 16:35] VITALS: BP 128/76
--- NOTE | 2019-04-03 16:58 | NUR ---
PT ALERT AND ORIENTGED TIMES FOUR. VSS, 98%3L. SR ON TELE. PT C/O PAIN PRN PAIN MEDICATIONS GIVEN WITH GOOD RELEIF. PT UP TO BSC WITH ASSIST OF ONE. PT PROGRESSING TOWARDS POC GOALS.
[2019-04-03 19:41] VITALS: BP 132/82
[2019-04-04 04:13] VITALS: BP 112/73
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
[2019-04-04 08:20] VITALS: BP 126/83
[2019-04-04] MEDS ORDERED: NYAMYC15 GM TOP (10:46)
[2019-04-04] MEDS ORDERED: ZYPREXA20 MG PO (10:46)
[2019-04-04] MEDS ORDERED: IRON325 PO (10:46)
[2019-04-04] MEDS ORDERED: PREDNISONE 20 M20 M1 PO (10:46)
[2019-04-04] MEDS ORDERED: LASIX 40 MG TAB40 MG PO (10:46)
[2019-04-04] MEDS ORDERED: AUGMENTIN 875-1 EACH PO (10:46)
[2019-04-04] MEDS ORDERED: LIDOPATCH1 EACH TRANSDERM (10:46)
--- NOTE | 2019-04-04 14:24 | NUR ---
ASSUMED CARE OF PATIENT AT 0700. PATIENT COMPLAINS OF CONTINUOUS PAIN IN HER RIGHT SHOULDER AND LEFT HIP WHICH IS PARTIALLY CONTROLLED WITH TRAMADOL AND OXYCODONE ALTERNATING. SHE IS ANXIOUS AND TEARFUL TODAY, PARTIALLY EHLPED WITH LORAZEPAM. WOUND CARE PERFORMED ON HER LEFT THIGH. STATES BANDAGE HAD FALLED OFF. AREA WAS CLEANED AND HONEY AND NEW BANDAGE PLACED. PICC LINE REMOVED WITHOUT ANY DIFFICULTY AND TIP WAS INTACT. REPORT CALLED TO [facility]. PATIENT STATES THAT SHE FEELS BETTER THAN SHE DID WHEN SHE ARRIVED AND STATES THAT SHE HAS ALL OF HER BELONGINGS. PATIENT TRANSPORTED BY [facility] TRANSPORTATION AND TAKEN OUT VIA WHEELCHAIR.
[2019-04-15] MEDS ORDERED: POTASSIUM20 PO (18:35)
[2019-04-15] MEDS ORDERED: AMBIEN 5 MG TABL5 M1 PO (18:38)
[2019-04-15] MEDS ORDERED: VISTARIL 25 MG25 M1 PO (18:46)
[2019-04-16] MEDS ORDERED: MELATONIN5 M1 PO (10:31)
[2019-04-16] MEDS ORDERED: IRON325 PO (10:31)
[2019-04-16] MEDS ORDERED: CYMBALTA60 MG PO (10:31)
[2019-04-16] MEDS ORDERED: LASIX 40 MG TAB40 MG PO (10:31)
[2019-04-16] MEDS ORDERED: MAGNESIUM-VIT1 EAC1 PO (15:23)
== END 2019-04-04 13:43 | DRG 208 ==
LOC: ER 12:50 → ICU 16:28 → 2N 04-01 16:06
PROVIDERS: Emergency Medicine; Hospitalist; Internal Medicine Pulmonary Disease; Nurse Practitioner; ADMIT Internal Medicine
PROC: 5A1945Z Respiratory Ventilation, 24-96 Consecutive Hours (ICD-10-PCS; principal; 2019-03-28)
PROC: 0BH17EZ Insertion of Endotracheal Airway into Trachea, Via Natural or Artificial Opening (ICD-10-PCS; 2019-03-28)
PROC: 02HV33Z Insertion of Infusion Device into Superior Vena Cava, Percutaneous Approach (ICD-10-PCS; 2019-03-29)
PROC: B548ZZA Ultrasonography of Superior Vena Cava, Guidance (ICD-10-PCS; 2019-03-29)
PROC: 5A09357 Assistance with Respiratory Ventilation, Less than 24 Consecutive Hours, Continuous Positive Airway Pressure (ICD-10-PCS; 2019-04-03)
DX: J96.22 Acute and chronic respiratory failure with hypercapnia (principal); G92 Toxic encephalopathy; F11.20 Opioid dependence, uncomplicated; J44.1 Chronic obstructive pulmonary disease with (acute) exacerbation; F41.9 Anxiety disorder, unspecified; F31.9 Bipolar disorder, unspecified; G89.4 Chronic pain syndrome; I10 Essential (primary) hypertension; F17.210 Nicotine dependence, cigarettes, uncomplicated; E66.01 Morbid (severe) obesity due to excess calories; J96.21 Acute and chronic respiratory failure with hypoxia; D50.9 Iron deficiency anemia, unspecified; G47.33 Obstructive sleep apnea (adult) (pediatric); I48.91 Unspecified atrial fibrillation; F19.10 Other psychoactive substance abuse, uncomplicated; Z98.84 Bariatric surgery status; Z88.6 Allergy status to analgesic agent; Z88.8 Allergy status to other drugs, medicaments and biological substances; Z79.899 Other long term (current) drug therapy; Z68.35 Body mass index [BMI] 35.0-35.9, adult; Z99.81 Dependence on supplemental oxygen; Z87.01 Personal history of pneumonia (recurrent)
CPT/HCPCS: 10078; 10081; 27000

== ENCOUNTER 2019-04-15 12:12 | Inpatient (IN) | payer OTHER ==
[~2019-04-15] VITALS: Ht 165.1 cm; Wt 79.4 kg
[~2019-04-15 12:12] MED LIST changes: +AUGMENTIN 875-1 EACH PO; +IRON325 PO; +LASIX 40 MG TAB40 MG PO; +LIDOPATCH1 EACH TRANSDERM; +NYAMYC15 GM TOP
[2019-04-15 12:14] VITALS: BP 141/89
[2019-04-15 12:47] LABS: BE(vivo) 13.4 mmol/L (-2 to +3); HCO3 44.5 mmol/L (22.0-26.0); PO2 94.5 mmHg (80.0-100.0); sO2 95.4 % (92.0-98.0)
[2019-04-15 12:54] LABS: BASOPHILS 0.6 % (0.0-2.0); EOSINOPHILS 0.5 % (0.0-3.0); HEMATOCRIT 35.2 % (37.0-47.0); HEMOGLOBIN 10.9 gm/dL (12.0-15.0); LYMPHOCYTES 8.9 % (24.0-44.0); MCH 28.1 pg (26.0-34.0); MCHC 30.9 g/dL (28.0-37.0); MCV 90.7 fL (80.0-100.0); MONOCYTES 5.7 % (1.0-8.0); PLATELET COUNT 312 thou/uL (150-400); POLYS 84.3 % (36.0-66.0); RBC 3.87 mil/uL (4.20-5.00); RDW 21.8 % (10.5-14.5); WBC 9.5 thou/uL (4.0-11.0)
[2019-04-15 14:04] LABS: PCO2 103.4 mmHg (35.0-45.0); pH 7.252 (7.360-7.450)
[2019-04-15 14:05] LABS: BE(vivo) 20.8 mmol/L (-2 to +3); HCO3 49.6 mmol/L (22.0-26.0); PO2 63.1 mmHg (80.0-100.0); pH 7.403 (7.360-7.450); sO2 90.8 % (92.0-98.0)
[2019-04-15 14:06] LABS: PCO2 81.3 mmHg (35.0-45.0)
[2019-04-15 14:17] LABS: BUN 8 mg/dL (7-18); CALCIUM 9.8 mg/dL (8.5-10.1); CHLORIDE 96 mmol/L (98-107); CREATININE 0.4 mg/dL (0.6-1.0); GLUCOSE 110 mg/dL (74-106); POTASSIUM 3.5 mmol/L (3.5-5.1); SODIUM 140 mmol/L (136-145)
[2019-04-15 14:21] LABS: ANION GAP 0 mmol/L (7-16); CO2 44 mmol/L (21-32)
[2019-04-15 14:27] LABS: ANISOCYTOSIS 2+
[2019-04-15 14:28] LABS: DIRECT BILIRUBIN 0.1 mg/dL (<0.1-0.2); SGOT 16 U/L (15-37); SGPT 21 U/L (14-59); TOTAL BILIRUBIN 0.3 mg/dL (<0.1-1.0); TOTAL PROTEIN 7.4 g/dL (6.4-8.2)
[2019-04-15 14:29] LABS: ALBUMIN 3.3 g/dL (3.4-5.0); TROPONIN-I <0.06 ng/mL (<0.06)
[2019-04-15 15:26] VITALS: BP 114/88
[2019-04-15 15:27] VITALS: BP 114/88
[2019-04-15 16:38] VITALS: BP 143/85
--- NOTE | 2019-04-15 17:27 | NUR ---
Patient arrived to [address] [place] [address] approx. 1630 from ER while on Bipap. Tele placed on patient. Pt drowsy but oriented x4. Pt resting comfortably in bed. Consents signed by patient herself. History discussed with patient. Plan of care reviewed. No open wounds noted. Will continue to monitor.
[2019-04-15] MEDS ORDERED: POTASSIUM20 PO ×2 (18:35)
[2019-04-15] MEDS ORDERED: AMBIEN 5 MG TABL5 M1 PO ×2 (18:38)
[2019-04-15] MEDS ORDERED: VISTARIL 25 MG25 M1 PO ×2 (18:46)
[2019-04-15 19:55] VITALS: BP 129/78
[2019-04-16 00:05] VITALS: BP 121/71
[2019-04-16 04:30] VITALS: BP 121/70
--- NOTE | 2019-04-16 05:50 | NUR ---
PT ABLE TO REST THROUGHOUT THE NIGHT AND TOLERATED BIPAP. PT REQUIRED ONLY ONE DOSE OF PAIN MED DURING SHIFT. AM LABS TO BE REVIEWED. PT REMAINS SR ON MONITOR.
[2019-04-16 05:54] LABS: ABSOLUTE NEUTROPHILS 6.2 thou/uL (1.4-8.2); BASOPHILS 0.7 % (0.0-2.0); EOSINOPHILS 0.4 % (0.0-3.0); HEMATOCRIT 31.5 % (37.0-47.0); HEMOGLOBIN 9.7 gm/dL (12.0-15.0); MCH 28.1 pg (26.0-34.0); MCHC 30.9 g/dL (28.0-37.0); MONOCYTES 6.4 % (1.0-8.0); PLATELET COUNT 281 thou/uL (150-400); POLYS 76.5 % (36.0-66.0); RBC 3.46 mil/uL (4.20-5.00); RDW 21.6 % (10.5-14.5); WBC 8.1 thou/uL (4.0-11.0)
[2019-04-16 06:02] LABS: BUN 12 mg/dL (7-18); CALCIUM 9.7 mg/dL (8.5-10.1); CHLORIDE 96 mmol/L (98-107); CREATININE 0.5 mg/dL (0.6-1.0); GLUCOSE 80 mg/dL (74-106); MAGNESIUM 1.6 mg/dL (1.8-2.4); POTASSIUM 3.4 mmol/L (3.5-5.1); SODIUM 144 mmol/L (136-145)
[2019-04-16 06:07] LABS: CO2 > 45 mmol/L (21-32)
[2019-04-16 07:30] VITALS: BP 112/68
--- NOTE | 2019-04-16 08:29 | EKG ---
[place] [address] [facility] [place] [address] ELECTROCARDIOGRAM REPORT Name: MIGUEL COLEMAN Room #: 354-P ADM IN M.R.#: [id number] Admission: 04/15/19 Attend Phys: Ana Stovall MD Discharge: Date of : 71 Report #: [id number] THIS REPORT FOR: //name// [facility] ED Test Date: 2019-04-15 Test Time: 12:24:11 Pat Name: MIGUEL COLEMAN Department: Room: 354 Gender: F Human Geography Instructor: DUSTIN : 1975 Requested By: Sravanthi Rowland Order Number: [id number] MD: Kamar Finley Measurements Intervals [place] Rate: 91 P: 74 OK: 117 QRS: 3 QRSD: 87 T: 42 QT: 369 QTc: 455 Interpretive Statements Sinus rhythm Borderline short OK interval Baseline wander in lead(s) V3 Compared to ECG 03/28/2019 23:39:26 No significant changes Electronically Signed On 04-16-2019 8:28:38 ORDER DESK CALLER by Kamar Finley [email or web address] <ELECTRONICALLY SIGNED> By: Kamar Finley MD, [facility] 04/16/19 0828 1224 1224 Kamar Finley MD, [facility] /EPI
[2019-04-16] MEDS ORDERED: LASIX 40 MG TAB40 MG PO ×2 (10:31)
[2019-04-16] MEDS ORDERED: IRON325 PO ×2 (10:31)
[2019-04-16] MEDS ORDERED: MELATONIN5 M1 PO ×2 (10:31)
[2019-04-16] MEDS ORDERED: CYMBALTA60 MG PO ×2 (10:31)
[2019-04-16 11:59] VITALS: BP 117/74
--- NOTE | 2019-04-16 14:04 | NUR ---
INITIAL ASSESSMENT/DISCHARGE NOTE: Received consult. ISH reviewed chart and spoke with nursing and attending physician. Pt was admitted from [facility] due to acute respiratory failure. Pt with hx of COPD. Pt with hx of bipolar disease/schizoaffective disorder. Pt is medically stable for discharge back to the facility today. ISH met with pt at bedside. Introduced role of SW. Pt is alert/orientated x 4. Pt reports she is aware of discharge today and is agreeable with discharge plan. ISH spoke with pt's major case detective with Sophia Barnard ([phone]) via phone to provide update. senior buyer planner to fax clinical info and discharge orders/summary to [facility] and coordinate discharge. ISH contacted [facility] liaison, Tammy, to provide update. Per Tammy, pt does have [place]-Medicaid [place] secondary insurance. Discussed with [facility] business office, who states Medicaid is inactive. ISH passed info on to Tammy. No additional SW needs identified at this time, but is available to assist should needs arise.
[2019-04-16] MEDS ORDERED: MAGNESIUM-VIT1 EAC1 PO ×2 (15:23)
--- NOTE | 2019-04-16 15:35 | NUR ---
DISCHARGE ORDERS COMPLETED PER ATTENDING. PATIENT DISCHARGING BACK TO [facility]. CHART COPY COMPLETED PER WAFER FABRICATION TECHNICIAN. DISCHARGE ORDERS AND SUMMARY FAXED TO [facility] LIAISON. TRANSPORTATION ARRANGED PER [facility], 1700 HOURS. UNIT NOTIFIED AND CONTACT NUMBER FOR REPORT PROVIDED. UNIT SW AWARE.
--- NOTE | 2019-04-16 16:20 | NUR ---
Assumed care approx. 0700 this AM. Patient taken off bipap this AM for breakfast and put on 4LNC. Dr. Stovall came by & put patient on 3LNC this morning. Patient has tolerated well. Dr. Crabtree paged by this RN and gave the okay for the patient to be discharged today. Dr. Stovall and case management notified. A wheelchair van is scheduled to warp picker patient at 1700. Will take out IV and dc tele.
== END 2019-04-16 17:51 | DRG 189 ==
LOC: ER 12:12 → EROBS 15:02 → 3W 15:02
PROVIDERS: Emergency Medicine; Emergency Medicine Emergency Medical Services; Nurse Practitioner; ADMIT Hospitalist
PROC: 5A09357 Assistance with Respiratory Ventilation, Less than 24 Consecutive Hours, Continuous Positive Airway Pressure (ICD-10-PCS; principal; 2019-04-15)
DX: J96.02 Acute respiratory failure with hypercapnia (principal); G93.41 Metabolic encephalopathy; J44.1 Chronic obstructive pulmonary disease with (acute) exacerbation; E66.9 Obesity, unspecified; J96.21 Acute and chronic respiratory failure with hypoxia; E53.8 Deficiency of other specified B group vitamins; F17.210 Nicotine dependence, cigarettes, uncomplicated; E55.9 Vitamin D deficiency, unspecified; I50.9 Heart failure, unspecified; I11.0 Hypertensive heart disease with heart failure; F41.9 Anxiety disorder, unspecified; G89.29 Other chronic pain; F32.9 Major depressive disorder, single episode, unspecified; Z88.8 Allergy status to other drugs, medicaments and biological substances; Z91.19 Patient's noncompliance with other medical treatment and regimen; Z68.29 Body mass index [BMI] 29.0-29.9, adult; Z98.84 Bariatric surgery status; Z79.899 Other long term (current) drug therapy
CPT/HCPCS: 10879

== ENCOUNTER 2019-04-18 11:35 | Inpatient (IN) | payer OTHER ==
[~2019-04-18] VITALS: Ht 165.1 cm; Wt 78.3 kg
[2019-04-18 11:40] VITALS: BP 96/56
[2019-04-18 12:04] LABS: HEMATOCRIT 36.1 % (37.0-47.0); HEMOGLOBIN 11.1 gm/dL (12.0-15.0); MCHC 30.7 g/dL (28.0-37.0); PLATELET COUNT 341 thou/uL (150-400); RBC 3.96 mil/uL (4.20-5.00); RDW 22.1 % (10.5-14.5); WBC 8.7 thou/uL (4.0-11.0)
[2019-04-18 12:15] LABS: URINE BILIRUBIN NEGATIVE (Negative); URINE BLOOD NEGATIVE (Negative); URINE CLARITY CLEAR; URINE COLOR YELLOW; URINE GLUCOSE-RANDOM* NEGATIVE (Negative); URINE KETONES NEGATIVE (Negative); URINE LEUKOCYTES-REFLEX NEGATIVE (Negative); URINE NITRITE-REFLEX NEGATIVE (Negative); URINE PROTEIN (DIPSTICK) NEGATIVE (Negative); URINE UROBILINOGEN 0.2 E.U./dl (0.2-1.0)
[2019-04-18 12:16] LABS: ANION GAP 2 mmol/L (7-16); BUN 10 mg/dL (7-18); CALCIUM 9.6 mg/dL (8.5-10.1); CHLORIDE 97 mmol/L (98-107); CO2 41 mmol/L (21-32); CREATININE 0.5 mg/dL (0.6-1.0); GLUCOSE 97 mg/dL (74-106); POTASSIUM 4.1 mmol/L (3.5-5.1); SODIUM 140 mmol/L (136-145)
[2019-04-18 12:18] LABS: BE(vivo) 9.3 mmol/L (-2 to +3); HCO3 37.4 mmol/L (22.0-26.0); PO2 VENOUS 42.7 mmHg (35.0-45.0)
[2019-04-18 12:21] LABS: AMP/METHAMP Negative (Negative); BARBITURATES Negative (Negative); BENZODIAZEPINES Negative (Negative); COCAINE Negative (Negative); METHADONE Negative (Negative); OPIATES Negative (Negative); PCP Negative (Negative)
[2019-04-18 12:26] LABS: ALBUMIN 3.6 g/dL (3.4-5.0); MAGNESIUM 1.9 mg/dL (1.8-2.4); SGOT 11 U/L (15-37); SGPT 18 U/L (30-65); TOTAL BILIRUBIN 0.6 mg/dL (<0.1-1.0); TROPONIN-I <0.06 ng/mL (<0.06)
[2019-04-18 12:47] LABS: ABSOLUTE NEUTROPHILS 7.1 thou/uL (1.4-8.2); ANISOCYTOSIS 2+; PLATELET ESTIMATE NORMAL
[2019-04-18 13:13] VITALS: BP 111/73
[2019-04-18 13:14] VITALS: BP 111/73
[2019-04-18 14:14] VITALS: BP 106/55
[2019-04-18 14:43] VITALS: BP 115/76
--- NOTE | 2019-04-18 16:05 | NUR ---
PATIENT WAS ADMITTED FROM [facility]. PT WAS JUST RECENTLY DISCHARGE. CASE NOT OPENED BUT IF PATIENT IS STABLE TO DISCHARGE OVER THE WEEKEND CONTACT ROSANNA AT [facility] [phone] TO ARRANGE TRANSPORTATION AND FACILITATE DISCHARGE.
[2019-04-18] MEDS ORDERED: IPRAT-ALBUT 0.5-3 ML INH (16:44)
[2019-04-18 17:56] LABS: BE(vivo) 13.4 mmol/L (-2 to +3); HCO3 42.6 mmol/L (22.0-26.0); sO2 92.7 % (92.0-98.0)
[2019-04-18 17:57] LABS: PCO2 83.6 mmHg (35.0-45.0); pH 7.325 (7.360-7.450)
--- NOTE | 2019-04-18 18:44 | NUR ---
patient admitted via ER to room 352, pt arrived very drowsy and minimal verbal response. Pt taken to MRI and ABGs obtained. dr Crabtree and Dr. Hickey consulted. Pt is a GCS of 13. Pt noted to desat easily. orders rcvd to place pt on bipap. family notified.
[2019-04-18 19:30] VITALS: BP 113/75
[2019-04-19 00:01] VITALS: BP 116/62
[2019-04-19 04:10] VITALS: BP 120/71
--- NOTE | 2019-04-19 06:30 | NUR ---
ASSUMED CARE AT 1900. PT ON BIPAP, SLIGHTLY AROUSEABLE, FOLLOWS COMMANDS POORLY. AT MIDNIGHT ASSESSMENT, PT MODERATELY AROUSEABLE, ABLE TO FOLLOW SOME COMMANDS BUT STILL VERY DROWSY. AT 0400, PT WAS A&Ox4, FOLLOWING ALL COMMANDS, ASKED FOR SOMETHING TO DRINK AND TO COME OFF BIPAP FOR AWHILE. LUNGS SLIGHTLY COARSE AND WHEEZY. PLACED ON 3L O2, SATS HOVERED AROUND 89%, TURNED UP TO 4.5L AND SATS NOW IN HIGH 90'S. HAS BEEN SR ON TELE WITH HR IN 70-80'S, BUT ONCE AWAKE HR YASIR TO 90-100'S. IVF INFUSING; PT DID NOT URINATE OVERNIGHT, UNTIL MORE AWAKE SHE AGREED TO USE BEDPAN AND URINATED 900 ML. OBTAINED ORDER FOR HOME DOSE OF TRAMADOL, GAVE AT 0500 FOR RIGHT SHOULDER AND LEFT HIP PAIN. NO OTHER CONCERNS, WILL CONTINUE TO MONITOR.
[2019-04-19 07:18] VITALS: BP 117/87
--- NOTE | 2019-04-19 09:39 | EKG ---
[place] [address] [facility] [address] ELECTROCARDIOGRAM REPORT Name: MIGUEL COLEMAN Room #: 352- ADM IN M.R.#: [id number] Admission: 04/18/19 Attend Phys: Ana Stovall MD Discharge: Date of : 71 Report #: [id number] THIS REPORT FOR: //name// [facility] ED Test Date: 2019-04-18 Test Time: 11:55:30 Pat Name: MIGUEL COLEMAN Department: Room: [facility] Gender: F Camp Coordinator: ESHEETS : 1975 Requested By: Jono Cartwright Order Number: [id number] MD: Kamar Finley Measurements Intervals [place] Rate: 85 P: 70 MS: 124 QRS: 40 QRSD: 85 T: 57 QT: 382 QTc: 455 Interpretive Statements Sinus rhythm RSR' in V1 or V2, right VCD Baseline wander in lead(s) I,III,aVL Compared to ECG 04/15/2019 12:24:11 No significant change was found Electronically Signed On 04-19-2019 9:39:34 BUTTONHOLE FACER by Kamar Finley [email or web address] <ELECTRONICALLY SIGNED> By: Kamar Finley MD, [facility] 04/19/19 0939 1155 1155 Kamar Finley MD, [facility] /EPI
[2019-04-19 11:21] VITALS: BP 105/59
[2019-04-19 15:49] VITALS: BP 116/60
--- NOTE | 2019-04-19 17:48 | NUR ---
PATIENT DISCHARGED AT THIS TIME TO [facility]. SHE IS ALERT ORIENTED X4. RESPIRATIONS WERE UNLABORED AT TIME OF DISCHARGED. PLEASANT WITH CARE.
== END 2019-04-19 17:53 | DRG 189 ==
LOC: ER 11:35 → EROBS 13:45 → 3W 13:45
PROVIDERS: Emergency Medicine; Pediatrics; ADMIT Hospitalist
PROC: 5A09357 Assistance with Respiratory Ventilation, Less than 24 Consecutive Hours, Continuous Positive Airway Pressure (ICD-10-PCS; principal; 2019-04-18)
PROC: 5A09357 Assistance with Respiratory Ventilation, Less than 24 Consecutive Hours, Continuous Positive Airway Pressure (ICD-10-PCS; 2019-04-19)
DX: J96.21 Acute and chronic respiratory failure with hypoxia (principal); G93.41 Metabolic encephalopathy; F11.20 Opioid dependence, uncomplicated; J44.1 Chronic obstructive pulmonary disease with (acute) exacerbation; J96.22 Acute and chronic respiratory failure with hypercapnia; I50.9 Heart failure, unspecified; E55.9 Vitamin D deficiency, unspecified; E53.8 Deficiency of other specified B group vitamins; I11.0 Hypertensive heart disease with heart failure; F31.9 Bipolar disorder, unspecified; G89.4 Chronic pain syndrome; R40.0 Somnolence; Z88.6 Allergy status to analgesic agent; Z88.8 Allergy status to other drugs, medicaments and biological substances; Z79.899 Other long term (current) drug therapy
CPT/HCPCS: 10879

== ENCOUNTER → 2019-04-18 | Outpatient (CLI) | payer OTHER ==
[~2019-04-18] MED LIST changes: +MAGNESIUM-VIT1 EAC1 PO; +MELATONIN5 M1 PO; +POTASSIUM20 PO; +VISTARIL 25 MG25 M1 PO
== END ==
LOC: NUC 09:23
DX: I46.9 Cardiac arrest, cause unspecified (principal); Z79.899 Other long term (current) drug therapy

== ENCOUNTER 2019-05-08 10:17 | Inpatient (IN) | payer OTHER ==
[~2019-05-08] VITALS: Ht 172.7 cm; Wt 77.1 kg
[2019-05-08 10:18] VITALS: BP 62/39
--- NOTE | 2019-05-08 11:05 | NUR ---
PT AGREED AT THIS TIME TO BE TAKEN OFF OF HOSPICE AT THIS TIME TO ALLOW FOR GI SURGICAL REPAIR NEEDED WITH THE UNDERSTANDING THAT SHE WILL BE ABLE TO BE READMITTED TO [facility] UPON RETURN TO [facility]/DISCHARGE TO SNF AFTER PROCEDURE AND IN-PATIENT RECOVERY. WITNESSED BY THIS COMMUNITY PLANNING TECHNICIAN AND ADELE Richards RN.
[2019-05-08 11:08] LABS: HEMATOCRIT 46.3 % (37.0-47.0); MCH 28.2 pg (26.0-34.0); MCHC 30.3 g/dL (28.0-37.0); MCV 93.1 fL (80.0-100.0); PLATELET COUNT 511 thou/uL (150-400); RBC 4.97 mil/uL (4.20-5.00); RDW 20.7 % (10.5-14.5); WBC 19.8 thou/uL (4.0-11.0)
--- NOTE | 2019-05-08 11:08 | NUR ---
HILLARY FROM [facility] CONTACT INFO: SUZAN BACA RN [phone] [email or web address]
[2019-05-08 11:15] LABS: CALCIUM 9.7 mg/dL (8.5-10.1); CREATININE 2.5 mg/dL (0.6-1.0); POTASSIUM 5.3 mmol/L (3.5-5.1)
[2019-05-08 11:17] LABS: INR 1.1; PROTIME 11.2 Seconds (9.3-11.4)
[2019-05-08 11:21] LABS: ALBUMIN 2.2 g/dL (3.4-5.0); TOTAL BILIRUBIN 0.4 mg/dL (<0.1-1.0); TOTAL PROTEIN 6.4 g/dL (6.4-8.2)
[2019-05-08 11:24] LABS: URINE BILIRUBIN NEGATIVE (Negative); URINE BLOOD NEGATIVE (Negative); URINE CLARITY SL CLOUDY; URINE COLOR YELLOW; URINE GLUCOSE-RANDOM* NEGATIVE (Negative); URINE KETONES NEGATIVE (Negative); URINE LEUKOCYTES-REFLEX TRACE (Negative); URINE NITRITE-REFLEX NEGATIVE (Negative); URINE PROTEIN (DIPSTICK) 2+ (Negative); URINE SPECIFIC GRAVITY 1.025 (1.005-1.035); URINE UROBILINOGEN 0.2 E.U./dl (0.2-1.0)
[2019-05-08 11:51] LABS: BE(vivo) -9.7 mmol/L (-2 to +3); HCO3 23.6 mmol/L (22.0-26.0); sO2 70.3 % (92.0-98.0)
[2019-05-08 11:54] LABS: PCO2 98.3 mmHg (35.0-45.0); PO2 55.8 mmHg (80.0-100.0); pH 6.998 (7.360-7.450)
--- NOTE | 2019-05-08 11:56 | NUR ---
NGT DISLODGED DURING ROLLING AND CPR.
--- NOTE | 2019-05-08 12:03 | NUR ---
HOSPICE HAS CALLED FAMILY BROTHER COMING FROM WORK IN [place]
--- NOTE | 2019-05-08 12:07 | NUR ---
BROTHER AT BEDSIDE UPDATED TO CARE HOSPICE WITH HIM DISCUSSING LIFE CHOICES
--- NOTE | 2019-05-08 12:26 | NUR ---
DR SMITH AT BEDSIDE DISCUSSED PT HAS ASPIRATION PNEUMOIA. PT TO CT SCAN WITH STAFF-RN RT
[2019-05-08 13:02] LABS: ANISOCYTOSIS 2+; METAMYELOCYTES 4 %
[2019-05-08 13:05] LABS: SQUAMOUS 0-3 Few /LPF (0-3); URINE RBC None Seen /HPF (0-2); URINE WBC-REFLEX 0-5 Rare /HPF (0-5)
[2019-05-08 13:06] LABS: BACTERIA-REFLEX 1-9 Few /HPF (None Seen); CASTS None Seen /LPF (None Seen); CRYSTALS None Seen /LPF (None Seen)
[2019-05-08 13:49] VITALS: BP 41/28
[2019-05-08 16:00] LABS: BE(vivo) 1.8 mmol/L (-2 to +3); HCO3 29.9 mmol/L (22.0-26.0); PCO2 64.8 mmHg (35.0-45.0); PO2 241.7 mmHg (80.0-100.0); sO2 99.4 % (92.0-98.0)
[2019-05-08 16:01] LABS: pH 7.282 (7.360-7.450)
[2019-05-08 16:02] VITALS: BP 147/114
[2019-05-08 16:16] LABS: HEMATOCRIT 37.1 % (37.0-47.0); MCH 27.7 pg (26.0-34.0); MCHC 29.7 g/dL (28.0-37.0); MCV 93.3 fL (80.0-100.0); RBC 3.98 mil/uL (4.20-5.00); RDW 20.4 % (10.5-14.5); WBC 16.1 thou/uL (4.0-11.0)
[2019-05-08 16:23] LABS: CALCIUM 7.9 mg/dL (8.5-10.1); CREATININE 2.2 mg/dL (0.6-1.0)
[2019-05-08 16:26] LABS: ALBUMIN 1.8 g/dL (3.4-5.0); MAGNESIUM 4.4 mg/dL (1.8-2.4); PHOSPHORUS 4.7 mg/dL (2.5-4.9)
[2019-05-08 16:27] LABS: POTASSIUM 3.8 mmol/L (3.5-5.1)
[2019-05-08 18:15] VITALS: BP 89/62
--- NOTE | 2019-05-08 20:25 | NUR ---
RECIEVED PATIENT FROM OR, INTUBATED, UNRESPONSIVE, ON VASOPRESSIN, LEVOPHED AND EPINEPHRINE. R RADIAL TRISTAN WITH SBP 70'S TO 90'S. NEOSYNEPHRINE ADDED. MIDLINE ABDOMINAL INCISION WITH WOUND VAC INTACT. ST ON MONITOR. GARCÍA WITH NO UOP. WILL MONITOR TO KEEP MAP > 65. PATIENT NOW DNR
[2019-05-09 05:03] LABS: HEMATOCRIT 38.1 % (37.0-47.0); HEMOGLOBIN 11.7 gm/dL (12.0-15.0); MCH 28.4 pg (26.0-34.0); MCHC 30.7 g/dL (28.0-37.0); MCV 92.5 fL (80.0-100.0); RBC 4.11 mil/uL (4.20-5.00); RDW 20.4 % (10.5-14.5)
[2019-05-09 05:07] LABS: BE(vivo) 2.8 mmol/L (-2 to +3); HCO3 31.4 mmol/L (22.0-26.0); PO2 93.3 mmHg (80.0-100.0); pH 7.278 (7.360-7.450); sO2 95.9 % (92.0-98.0)
[2019-05-09 05:08] LABS: PCO2 68.6 mmHg (35.0-45.0)
[2019-05-09 05:17] LABS: ALBUMIN 1.6 g/dL (3.4-5.0); CREATININE 2.5 mg/dL (0.6-1.0); POTASSIUM 4.7 mmol/L (3.5-5.1); TOTAL BILIRUBIN 0.4 mg/dL (<0.1-1.0); TOTAL PROTEIN 4.6 g/dL (6.4-8.2)
[2019-05-09 05:29] LABS: PLATELET COUNT 337 thou/uL (150-400); WBC 34.7 thou/uL (4.0-11.0)
--- NOTE | 2019-05-09 06:33 | NUR ---
Pt remains on four pressors, and has maintained a MAP >65, for the most part, she is SO sensitive to these meds, that even the shortest time off, (or titration, to reprogram the pump, change bags out, etc) will immediately drop her pressures. She is febrile this morning, at 38.8 (101.7) via reyes temp probe, the OPEN HEARTH STOCKYARD SUPERVISOR was notified, with no new orders at this time. Her lactic acid has decreased through the night, but her WBC's have doubled. Around midnight, she was responsive, nodding appropriately to questions, but this morning she is more lethargic. Poor urine output is noted, approx 25 ml/hr.
--- NOTE | 2019-05-09 10:14 | O ---
[address] [address] OPERATIVE REPORT Name: MIGUEL COLEMAN Room #: 239-P ADM IN M.R.#: [id number] Admission: 05/08/19 Attend Phys: Marv Vasquez MD Discharge: Date of : 71 Report #: [id number] THIS REPORT FOR: //name// CC: Marv Jones DATE OF SERVICE: 05/08/2019 PROCEDURE PERFORMED: 1. Exploratory laparotomy, emergent. 2. Resection of perforated small bowel. 3. Abdominal washout. 4. Placement of ABThera wound VAC. PREOPERATIVE DIAGNOSES: 1. Pneumoperitoneum. 2. Septic shock. 3. Respiratory failure. POSTOPERATIVE DIAGNOSES: 1. Perforated small bowel. 2. Feculent peritonitis. 3. Septic shock. 4. Respiratory failure. 5. Pneumoperitoneum. SURGEON: Dr. Hodges. ORTHODONTIC TREATMENT COORDINATOR: None. ANESTHETIC: None. ESTIMATED BLOOD LOSS: 20 mL. URINE OUTPUT: Not measured. COMPLICATIONS: None. FINDINGS: 1. The patient had large volume feculent material throughout the peritoneal cavity. 2. The patient had perforated small bowel. 3. The patient had what appeared to be a jejunojejunostomy within the small bowel distally. 4. The patient had a lot of interloop adhesions between the small bowel. 5. The patient had severe amount of adhesions in the upper abdomen and in the [address] [address] OPERATIVE REPORT Name: MIGUEL COLEMAN Room #: 239-P ADM IN ..#: [id number] Admission: 05/08/19 Attend Phys: Marv Vasquez MD Discharge: Date of : 71 Report #: [id number] left upper quadrant, making it difficult to see her previous surgical anatomy. 6. Normal descending colon, rectum and sigmoid colon. Normal cecum and ascending and transverse colon. 7. I did visualize what I think is a gastrojejunostomy anastomosis in the upper abdomen, but again there was a large amount of adhesions making it difficult to ascertain her anatomy. 8. The patient had several ventral hernias containing bowel, no perforated bowel within the ventral hernias. INDICATIONS FOR PROCEDURE: The patient is a 44-year-old female who I have never spoken to who presented to the ER in extremis. The patient coded 4 times before I met her. The patient was found to have a large volume pneumoperitoneum. She was very septic. Discussion was held with her brother José Luis regarding goals of care. Apparently, the patient was on hospice for COPD; however, this was lifted so that she could come to the hospital and receive care. The brother and the father who was contacted over the phone by the brother requested full care and surgery to try to identify if there is an easily fixable problem. They understood that she was in extremis and that she would have a high likelihood of mortality in the operating room or shortly thereafter and would still like to proceed. The risks, benefits and alternatives of the procedure were discussed with the patient's brother José Luis. The risks discussed included but were not limited to the risk of bleeding, infection, open abdomen, damage to any intraabdominal organ including small bowel, large bowel, kidney, liver, spleen, blood vessels, nerves, etc. The risk of postoperative ICU and ventilator stay was discussed. It was discussed that the patient would likely need further surgeries and further hospitalization and she would have an open abdomen afterwards. It was discussed that she would have a very high likelihood of . DESCRIPTION OF PROCEDURE: After informed consent was obtained as above, the patient was taken to the operating room and placed in the supine position emergently. Her anterior abdomen was prepped and draped in the usual sterile fashion. A timeout was performed. A midline exploratory laparotomy incision was made. After timeout was performed, all were in agreement, midline exploratory laparotomy incision was made. The incision was carried down through the subcutaneous tissue using electrocautery. The peritoneum was entered. There was an immediate return of gush of air and feculent fluid. The feculent fluid was suctioned out as well as possible. The abdomen was then explored. The fascia was opened up more cephalad toward the hernia. The hernia fascia was excised, freeing the contents within the hernia. This was reduced into the peritoneal cavity completely lysing the hernia sac and neck. The abdomen was completely explored. The patient had a lot of interloop adhesions between her small bowel due to previous surgery presumably. The patient had a lot of adhesions in her left upper and middle abdomen. This made it difficult to explore. The rectum, sigmoid and descending colon were normal. The [facility] and [address] [address] OPERATIVE REPORT Name: MIGUEL COLEMAN Room #: 239-P ADM IN M.R.#: [id number] Admission: 05/08/19 Attend Phys: Marv Vasquez MD Discharge: Date of : 71 Report #: [id number] ascending and transverse colon were normal. The terminal ileum was identified. The small bowel was ran proximally and there was identified to be a perforation of the small bowel with necrotic wound edges at the proximal small bowel that was proximal to the jejunojejunostomy. The small bowel at this position was directly underneath the mesocolon and although I cannot be certain due to the amount of inflammation, I do presume that this was potentially at the ligament of Treitz. If this bowel was not at ligament of Treitz, then it was possibly the Ryan limb going in a retrocolic fashion. The small bowel in this position was freed up well enough to place a TX stapler proximal to this. The blue load stapler was placed proximal to the perforation and it was stapled shut. The Prolene suture was placed on the staple lines for identification for subsequent procedures. The distal end of the perforation was then stapled off and the portion of the small bowel on the staple line was transected before removing the stapler and the small bowel specimen was passed off the field and sent to pathology. The perforation was now controlled and therefore all free fluid was suctioned out and the abdomen was irrigated with approximately 6 liters of warm irrigation until the irrigation was clear in nature. The abdomen was hemostatic. The ABThera wound VAC was applied. The patient was critical throughout the course of procedure. Her blood pressure was 40/30 on vaso, levo and epi. That is the reason I did not perform any reconstruction or further dissection to try to verify her anatomy. The patient had coded 4 times before the operation and I performed a damage control procedure for those reasons. The patient was critically ill. However, she was transferred to the ICU in the same condition as she was preoperatively. There was no acute worsening of her condition, although I cannot get much towards than the artery was. She did not code while in the operating room. <ELECTRONICALLY SIGNED> By: Aleks Hodges MD 05/09/19 1014 [id number] MD marisa Stallings
[2019-05-09 13:36] LABS: ABSOLUTE NEUTROPHILS 30.9 thou/uL (1.4-8.2); ANISOCYTOSIS 2+; METAMYELOCYTES 6 %; NUCLEATED RBCS 2 /100WBC
[2019-05-09 13:37] LABS: POLYCHROMASIA OCCASIONAL
--- NOTE | 2019-05-09 20:22 | HC ---
[facility] [place] [address] CONSULTATION Name: MIGUEL COLEMAN Room #: 239-P [facility] IN M.R.#: [id number] Admission: 05/08/19 Attend Phys: Marv Vasquez MD Discharge: Date of : 71 Report #: [id number] THIS REPORT FOR: //name// CC: Marv Jones DATE OF SERVICE: 05/08/2019 INFECTIOUS DISEASE CONSULTATION REASON FOR CONSULTATION: I was asked to evaluate concerning septic shock. HISTORY OF PRESENT ILLNESS: This is a 44-year-old assisted resident with underlying anxiety and bipolar disorder, chronic narcotic use, who presented with abdominal pain that started the day before. Sent into the Emergency Room where she became obtunded, hypotensive. Imaging studies showed free air in the abdomen. Taken emergently to surgery by Dr. Aleks Hodges who found a perforated small intestine with feculent peritonitis. Now on broad-spectrum antibiotics, 3 vasopressors and intubated on FiO2 of 90%. She was arousable, but unable to give any further details. She has a previous history of C. difficile colitis. No report of any previous intestinal issues. ALLERGIES: ASPIRIN, IBUPROFEN, NONSTEROIDAL ANTI-INFLAMMATORIES. MEDICATIONS: Prior to her admission included potassium, ipratropium and albuterol, sucralfate, ondansetron, Zyprexa, melatonin, Lasix, Cymbalta, iron, Prinivil, lorazepam, tramadol, nicotine, Tylenol, subsequently has been put on Zosyn, vasopressors and vancomycin. PAST MEDICAL HISTORY: Gastric bypass, numerous abdominal surgeries, tobacco use, coronary artery disease, hypertension, chronic kidney disease, bipolar disorder, polysubstance abuse and COPD. FAMILY HISTORY: Noncontributory. SOCIAL HISTORY: Polysubstance abuse with tobacco use and heavy alcohol use. Lives in a assisted. REVIEW OF SYSTEMS: The patient is unable to give any further details, as she is orally intubated. She has got an NG tube in place. She has an abdominal wound VAC in place, indwelling Luna catheter and rectal tube. Central venous access. PHYSICAL EXAMINATION: VITAL SIGNS: Temperature is 99 degrees, pulse 124, blood pressure in the 90 systolic with a MAP of 81, on Levophed, epinephrine, and Marco-Synephrine. GENERAL: She was mottled peripherally. No other rashes or decubitus. No [facility] [address] [place] [address] CONSULTATION Name: MIGUEL COLEMAN Room #: 239-P [facility] IN [facility]#: [id number] Admission: 05/08/19 Attend Phys: Marv Vasquez MD Discharge: Date of : 71 Report #: [id number] palpable adenopathy. She was obese. She had anasarca. HEENT: Eyes, without scleral icterus. Mouth, orally intubated. NG tube in place. NECK: Supple. CHEST: Clear anteriorly. HEART: Tachycardic and regular. ABDOMEN: Open abdomen with wound VAC in place. Diffusely tender. GENITOURINARY: External genitalia without lesion. Indwelling Luna catheter. RECTAL: Not performed. EXTREMITIES: Able to move all extremities. NEUROLOGIC: Cranial nerves intact. Sensation to touch symmetric and within normal limits in upper and lower extremities. NEUROLOGIC: Mood, was awake, unable to assess further. LABORATORY DATA AND IMAGING STUDIES: Lactate was 5.3. Sodium 140, potassium 3.8, creatinine 2.2. Hemoglobin 11, WBC 16, platelet count 420,000. Procalcitonin 16.4. Sputum cultures pending. Urinalysis, 2+ protein. CT chest, abdomen and pelvis, emphysema, multiple rib fractures, possible nodular or cavitary region in the right upper lobe, fatty infiltration of the liver, free air in the abdomen. Blood cultures are pending. Sputum culture pending. IMPRESSION: A 44-year-old with small-bowel obstruction and fecal peritonitis with septic shock and multisystem failure. Underlying polysubstance abuse, chronic obstructive pulmonary disease, bipolar disorder. RECOMMENDATIONS: 1. Broad antibiotic coverage including aerobic, anaerobic and antifungal therapy. 2. Continue full support for septic shock. 3. I have discussed in detail plan of care with nursing staff at the bedside. Hopefully, we can maintain other organ system function. Taft, given her profound shock, is guarded with notable high mortality rate in this situation. <ELECTRONICALLY SIGNED> By: Jono Nation MD 05/09/192021 [id number] [id number] Jono Nation MD /nt
--- NOTE | 2019-05-09 21:10 | NUR ---
Patient alert and responsive. Able to make decision. Remains critical however voiced that she does not wish to be a DNR and wants to make her own decisions about her health care.
[2019-05-10] VITALS (8 sets, daily range): BP systolic 90–158; BP diastolic 50–77
--- NOTE | 2019-05-10 05:41 | NUR ---
NO OVERNIGHT EVENTS. PT. MORE AWAKE AND TRYING TO MOUTH WORDS THIS SHIFT. NODS APPROPRIATELY TO Y/N. ASSESSMENTS AND VITAL SIGNS CHARTED. MEDICATION TITRATION CHARTED. LOW GRADE FEVER THROUGHOUT THE NIGHT. CONTINUE TO FOLLOW POC. WILL CONTINUE TO MONITOR.
[2019-05-10 05:53] LABS: HEMATOCRIT 31.3 % (37.0-47.0); MCH 27.6 pg (26.0-34.0); MCHC 30.7 g/dL (28.0-37.0); MCV 90.1 fL (80.0-100.0); RBC 3.47 mil/uL (4.20-5.00); RDW 20.2 % (10.5-14.5); WBC 28.1 thou/uL (4.0-11.0)
[2019-05-10 06:04] LABS: CALCIUM 6.9 mg/dL (8.5-10.1); CREATININE 2.8 mg/dL (0.6-1.0)
[2019-05-10 06:19] LABS: HEMOGLOBIN 9.6 gm/dL (12.0-15.0); PLATELET COUNT 145 thou/uL (150-400)
[2019-05-10 06:37] LABS: ABSOLUTE NEUTROPHILS 21.6 thou/uL (1.4-8.2); ANISOCYTOSIS SLIGHT; METAMYELOCYTES 12 %; MYELOCYTES 1 %; PLATELET ESTIMATE NORMAL
--- NOTE | 2019-05-10 19:22 | NUR ---
PATIENT ALERT AND FOLLOWS COMMANDS. RESTRAINTS APPLIED DUE TO INAWARENESS OF VENTILATOR. FIO2 WEANED TO 70%. WOUND VAC INTACT. CENTRAL LINE IN PLACE WHERE LEVOFED, VASOPRESSIN, AND BRUCE IS MAXED. EPINEPHRINE WEANED TO 2 MCG, MAP REMAINED ABOVE 60. BLOOD SUGAR MONITORED CLOSELY. GARCÍA AND FECAL MANAGEMENT SYSTEM INTACT. PLAN OF CARE DISCUSSED WITH PATIENT, RE-EDUCATION NEEDED. NO SIGN OF ACUTE DISTRESS NOTED AT THIS TIME. WILL CONTINUE TO MONITOR.
[2019-05-11] VITALS (9 sets, daily range): BP systolic 94–135; BP diastolic 52–77
--- NOTE | 2019-05-11 04:32 | NUR ---
NO OVERNIGHT EVENTS. PT. BLOOD PRESSURE MORE STABLE THROUGHOUT SHIFT. RN ABLE TO TITRATE OFF TWO VASOPRESSORS. PT. MORE ALERT THIS SHIFT AND MOUTHING WORDS. WANTS TO BE ABLE TO WRITE TO COMMUNICATE BETTER. ASSESSMENTS AND VITAL SIGNS CHARTED. MEDICATION TITRATION CHARTED. CONTINUE TO FOLLOW POC. WILL CONTINUE TO MONITOR.
[2019-05-11 05:32] LABS: CREATININE 2.8 mg/dL (0.6-1.0)
--- NOTE | 2019-05-11 13:42 | NUR ---
Advised by Dr. Marcelo to change patient rate to 14 ABG in 1 hour
[2019-05-11 14:35] LABS: BE(vivo) -2.9 mmol/L (-2 to +3); PCO2 52.3 mmHg (35.0-45.0); PO2 93.3 mmHg (80.0-100.0); sO2 96.1 % (92.0-98.0)
[2019-05-11 19:00] LABS: HEMOGLOBIN 8.2 gm/dL (12.0-15.0); MCH 28.3 pg (26.0-34.0); MCHC 31.6 g/dL (28.0-37.0); MCV 89.4 fL (80.0-100.0); RBC 2.9 mil/uL (4.20-5.00); RDW 20.5 % (10.5-14.5); WBC 21.3 thou/uL (4.0-11.0)
--- NOTE | 2019-05-11 19:06 | NUR ---
ASSESSMENTS AND INTERVENTIONS DOCCUMENTED. PATIENT ALERT AND ON VENTILATOR. PATIENT COMPLAINING OF ABD PAIN. PATIENT MAXED OUT ON FENTANYL. DR. BRUSH CALLING FOR CONSENTS FOR SURGERY THIS EVENING. BROTHER CALLED WHO IS LISTED DPOA TO OBTAIN CONSENTS. BROTHER RIGO, REFUSING TO SIGN CONSENTS EVEN THOUGH HE STATED HE WAS THE DPOA. PATIENT EDUCATED ON THE SURGERY. BROTHER RIGO STATING THAT HE DOESNT THINK IT IS A GOOD IDEA BUT SHE WOULD WANT SURGERY. FAMILY EDUCATED THAT IT IS WHAT THE PATIENT WOULD WANT NOT THE FAMILY. BROTHER STATES " SHE WANTS THE OPPOSITE OF WHAT THE FAMILY WANTS." BROTHER ASKING ABOUT TRACHEOSTOMY. RIGO (BROTHER) EDUCATED THAT THIS SURGERY WAS FOR HER BOWEL ISSUE THAT SHE PRESNETED WITH ON ADMISSION. BROTHER BECOMMING AGGRESIVE AND UPSET ON THE PHONE DESPITE CONTINUOUS EDUCATION. BROTHER WANTING PATIENT TO SIGN CONSENT RN EXPLAINED TO FAMILY THAT PATIENT IS INTUBATED AND HYPOTENSIVE. PATIENT DOES NOT HAVE COMPLETE DECISION MAKING CAPABILITY WE CAN NOT ASSESS HER BASELINE AT THIS TIME. RN ASKING BROTHER TO HOLD TO SPEAK WITH HAT BRAIDER BUT HUNG UP. MIKE DUMONT CALLED WHO IS THE PATIENT'S FATHER. MIKE DUMONT COOPERATING AND ASKING QUESTIONS IN REGARDS TO PATIENTS STATUS AND STATING" THIS IS WHAT SHE WANTS." CONSENT RECIEVED OVER THE PHONE AND VERIFIED BY 2 RN. PATIENT LEAVING FOR SURGERY AT 1740 WITH ANESTHESIOLOGIST, RN AND RT. 1800 RESTRAINTS NOT DOCCUMENTED. PATIENT IS OFF OF THE UNIT. THE POC IS TO HAVE SURGERY AND RETURN TO ICU.
[2019-05-11 21:11] LABS: BE(vivo) -4.2 mmol/L (-2 to +3); PCO2 52.2 mmHg (35.0-45.0); PO2 64.2 mmHg (80.0-100.0); sO2 89.1 % (92.0-98.0)
[2019-05-11 21:13] LABS: pH 7.262 (7.360-7.450)
--- NOTE | 2019-05-11 23:15 | NUR ---
PATIENT RETURNED FROM SURGERY AT 2027, FECAL MANAGEMENT SYSTEM WAS DISLOGED IN RECOVERY, REPLACED PER POWER HOUSE ENGINEER. RESPIRATORY PRESENT AT BEDSIDE, LABWORK COLLECTED. LEFT ABDOMINAL PEG TUBE IN PLACE, ABDOMINAL GRETA DRAIN IN PLACE. CLOSED WOUND VAC SYSTEM INTACT. MONITOR APPLIED. NO SIGNS OF ACUTE DISTRESS NOTED.
[2019-05-12] VITALS (55 sets, daily range): BP systolic 81–129; BP diastolic 32–85
--- NOTE | 2019-05-12 02:32 | NUR ---
RIGHT RADIAL ARTERIAL LINE NOT READING BLOOD PRESSURE CORRECTLY, UNABLE TO RECIEVE BLOOD RETURN, PAINFUL FOR PATIENT TO TOUCH. TROUBLESHOOTING DID NOT WORK, ART LINE REMOVED AND PRESSURE APPLIED.
[2019-05-12 05:33] LABS: HEMATOCRIT 25.8 % (37.0-47.0); HEMOGLOBIN 8.2 gm/dL (12.0-15.0); MCH 28.6 pg (26.0-34.0); MCHC 31.7 g/dL (28.0-37.0); MCV 90.3 fL (80.0-100.0); RBC 2.86 mil/uL (4.20-5.00); RDW 21.1 % (10.5-14.5); WBC 17.7 thou/uL (4.0-11.0)
[2019-05-12 05:46] LABS: ALBUMIN 1.4 g/dL (3.4-5.0); CALCIUM 7.2 mg/dL (8.5-10.1); CREATININE 2.8 mg/dL (0.6-1.0); MAGNESIUM 2.2 mg/dL (1.8-2.4); PHOSPHORUS 5.3 mg/dL (2.5-4.9); POTASSIUM 4.7 mmol/L (3.5-5.1)
--- NOTE | 2019-05-12 07:30 | NUR ---
PATIENT ALERT AND FOLLOWS COMMANDS. ON VENTILATOR 60% FIO2. VASO WEANED TO 0.02. ABDOMINAL WOUND VAC INTACT. LEFT G TUBE CHECKED FOR PLACEMENT PER X-RAY. CHEST X-RAY COMPLETED. SPOKE WITH DR. BRUSH ABOUT RESULTS. AWAITING ABDOMINAL BINDER. GRETA DRAIN RIGHT ABDOMEN DRAINING SEROUS FLUID. PATIENT COMPLAINS OF PAIN SCALE OF 8, ON 100MCG FENTANY DRIP/HR. FREQUENT TURNING FOR COMFORT. BLOOD SUGAR CLOSELY MONITORED. PLAN OF CARE DISCUSSED WITH PATIENT. NO SIGNS OF ACUTE DISTRESS NOTED AT THIS TIME. WILL CONTINUE TO MONITOR.
--- NOTE | 2019-05-12 08:00 | NUR ---
SEDATION VACATION PERFORMED AT SHIFT CHANGE. ABLE TO WEAKLY SQUEEZE BOTH HANDS AND GROSS MOTOR MOVEMENT IN R LEG. RESTARTED SEDATION AFTER REPOSITIONING AND PT BECOMING RESTLESS ON VENT. TITRATING LEVOPHED TO KEEP MAP GREATER THAN 60. SR, TOLERATING VENT, MODERATE AMOUNT GREEN CLEAR BILE DRAINAGE, GARCÍA WITH ADEQUATE AMOUNT CLEAR YELLOW URINE. DR. ALFARO PRESENT. LAURA- PT'S MOTHER PRESENT, UPDATED ON ALL CARES GIVEN.
--- NOTE | 2019-05-12 09:21 | NUR ---
Father of the PT called for an update and provided the correct passcode. He was told that the gtts have been titrated down showing improvement in her BP and the art line was discontinued. He verbalized understanding and stated, "The family and I just want nature to run its course. I tried telling the doctor that and he went against my wishes." The father was reminded that the surgeon and family were in the room while they spoke with the PT about her wishes and it was noted that the PT wanted aggressive measures to be done. The father said, "she isn't in her right mind. She has mental issues. She never does what she's supposed to do and she's been in every hospital here in [place]. I'm just gonna pray that nature runs its course." The nurse told the father that she will ask the physician to call him so that they can discuss this further. He stated, "I tried talking to him already." Dr. Hodges was on the unit and was notified of the conversation. Dr. Hodges mentioned getting the ethic committee involved as he was the provider that sat down with the family and PT when they all agreed on the surgies and treatment course to take. Nurse will follow up with the attending provider.
--- NOTE | 2019-05-12 10:06 | NUR ---
Rec increase tpn to goal of 70ml/hr. Pharmacy will be managing tpn
--- NOTE | 2019-05-12 12:25 | NUR ---
Nurse assessed PT's blood glucose by checking the right hand 1st digit. The results were 24. Nurse rejected that result and rechecked PT's blood glucose on the left hand 1st digit. The results were 118. No insulin was given per PT's results. PT shows no s/sx of hypoglycemia at this time. Nurse will continue to monitor.
--- NOTE | 2019-05-12 12:49 | NUR ---
Dr. Hodges put in an order to initiate trickle tube feedings for the PT to run at 10 mls/h. Nurse spoke with Brittany the stiff neck loader who recommended using Vital AF 1.2 for the tube feeds. Dr. Vasquez was notified of the changes and nurse asked if he wanted to continue the TPN as well as the tube feeds. Dr. Vasquez stated "yes since are we doing trickle tube feeds at this time." Nurse verbalized understanding and initiated tube feeds. Will continue to monitor.
[2019-05-12 14:02] LABS: PCO2 55.1 mmHg (35.0-45.0); PO2 102.8 mmHg (80.0-100.0); pH 7.229 (7.360-7.450)
[2019-05-12 14:03] LABS: HCO3 22.5 mmol/L (22.0-26.0)
--- NOTE | 2019-05-12 17:06 | PATH ---
[facility] [address] [place] [address] PATHOLOGY RPT PROCEDURE Name: MIGUEL CARLSON Room #: 239-P ADM IN M.R.#: [id number] Admission: 05/08/19 Date of : 71 Discharge: Report #: [id number] Path Case #: [id number] [facility] Accession Number: [id number] . 01 Material submitted: . small bowel - SEGMENT OF SMALL BOWEL . 01 Clinical history: . Perforated viscus . 02 Diagnosis: Small bowel, segment, resection: - Ischemic changes along with marked serositis, consistent with the provided history of perforated viscus. - Negative for dysplasia or malignancy. (IUV:pit 05/12/2019) QTP 05/12/2019 1458 Local . 02 Electronically signed: . Lauren Saenz MD, Pathologist NPI- [id number] . 01 Gross description: . The specimen is received in formalin, labeled "Miguel Carlson, segment small bowel". Received is a segment of small bowel measuring 2.5 cm in length by 3.1 cm in diameter. Both margins are open. The serosal surface is dusky pink-capellan in appearance. There is a slight amount of attached mesenteric fat measuring 0.9 cm in thickness with a suture at the mesenteric margin. Opening the specimen reveals pink-garcia to red-brown mucosa with normal architectural folds. Thorough examination of the serosal surface reveals no grossly distinct area of perforation. Returned Goods Repairer cross-sections from margin to margin are submitted in cassettes A1 through A3. (CAA; 05/09/2019) QAC/QAC 05/09/2019 0919 Local . 02 Pathologist provided ICD-10: K65.8, K63.1 . 02 CPT . 770042 Specimen Comment: A courtesy copy of this report has been sent to [phone] Specimen Comment: [phone], Specimen Comment: Report sent to ,DR ROQUE / DR WELSH Performed at: [address] [place] [address] PATHOLOGY RPT PROCEDURE Name: MIGUEL CARLSON Room #: 239-P ADM IN M.R.#: [id number] Admission: 05/08/19 Date of : 71 Discharge: Report #: [id number] Path Case #: [id number] [address] [facility] [address], [place], [place] [id number] MD Romero Hoffman MD Phone: [phone] Performed at: [address] [id number] MD Lauren Saenz MD Phone: [phone]
--- NOTE | 2019-05-12 18:10 | NUR ---
Assumed care at 0700. PT appears alert and oriented to self and place but is nonverbal due to vent. PT is able to write with a marker and paper to express her needs. Levophed gtt was titrated down and the vasopression was turned off. VSS stable. Fentanyl gtt is continued and IVF were decreased to 33 mls/h. Providers rounded. Tube feedings initiated with success. FIO2 was decreased but unable to trial weaning due to PT's critical ABG results. PT appears to be resting. Call light is within reach. Fall precautions in place. Nurse will continue to monitor.
[2019-05-13] VITALS (46 sets, daily range): BP systolic 82–144; BP diastolic 41–84
[2019-05-13 06:13] LABS: HEMATOCRIT 22.6 % (37.0-47.0); MCHC 30.8 g/dL (28.0-37.0); RBC 2.48 mil/uL (4.20-5.00); RDW 20.8 % (10.5-14.5)
[2019-05-13 06:27] LABS: CALCIUM 7.8 mg/dL (8.5-10.1); CREATININE 2.8 mg/dL (0.6-1.0); POTASSIUM 4.6 mmol/L (3.5-5.1)
--- NOTE | 2019-05-13 07:47 | NUR ---
PATIENT ALERT AND FOLLOWS COMMANDS. ON VENTILATOR, NO RESPIRATORY DISTRESS NOTED. ABDOMINAL WOUND VAC PREVENA BATTERY . DR. LUPILLO BRIONES NOTIFIED AND STATED TO REPLACE INSTEAD OF REMOVING VAC. J/P DRAIN MINIMAL OUTPUT. GARCÍA PATENT AND DRAINING. FECAL MANAGEMENT IN PLACE. PATIENT ACCIDENTLY DISLODGED NG TUBE. RESTRAINTS PRESENT, PATIENT SCOOTS DOWN IN BED AND ATTEMPT TO ADJUST ET TUBE FOR COMFORT. PATIENT EDUCATED NOT TO GRAB FOR TUBE DUE TO POSSIBLE DISLODGEMENT, EDUCATION NOT SUCCESSFUL. PATIENT NEEDS CONSTANT RE-EDUCATION ON VENTILATOR AND PURPOSE FO RESTRAINT USE. FENTANYL DRIP INFUSING FOR PAIN. G TUBE INTACT, PATIENT TOLERATING TRICKLE RATE OF 10ML/HR. NO SIGNS OF ACUTE DISTRESS NOTED AT THIS TIME. WILL CONTINUE TO MONITOR.
--- NOTE | 2019-05-13 08:43 | NUR ---
Assumed care at 0700. PT was repositioned to her left side. She tolerated the turn well. PT appeared to express discomfort around her ET tube. Oral care was provided by nurse to try and improve her comfort level. Levophed gtt was titrated down to 2 mcs/min. PT appears to be tolerating it well. The battery of the wound vac is noted to be , night RN reported that the surgeon director of hotel operations is aware. Nurse will follow up with getting a replacement. High fall risk precautions are in place. Call light is within reach of the PT. Nurse will continue to monitor.
--- NOTE | 2019-05-13 11:00 | NUR ---
Dr. Hodges on unit to round on PT. Provider requested for abdominal binder to be placed immediately. Binder obtained from CS and was placed around PT's abdomen. Dr. Hodges dc'd the wound vac and dressing from the midline abd incision. He proceeded to pack and dress the wound. Orders were placed for wound care. Dr. Hodges was notified of bile being aspirated from the GJ tube. He verbalized understanding and stated to keep the tube feedings going at 10 mls/h. PT appears to tolerate the abd binder well. Call light in reach. Nurse will continue to monitor.
--- NOTE | 2019-05-13 16:57 | NUR ---
Repositioned PT on her right side and noted her midline abdominal drsg was saturated. Nurse changed the outer gauze with 4x4 and applied tape per Dr. Ceballos's wound care order. Drsg is now CDI. Abdominal binder was reapplied after drsg was changed. PT appeared to tolerate procedure well. High fall risk precautions in place. Nurse will continue to monitor.
[2019-05-14] VITALS (85 sets, daily range): BP systolic 59–131; BP diastolic 31–65
[2019-05-14 05:50] LABS: HEMATOCRIT 20.2 % (37.0-47.0); MCH 28.8 pg (26.0-34.0); MCHC 31.7 g/dL (28.0-37.0); MCV 90.8 fL (80.0-100.0); RBC 2.23 mil/uL (4.20-5.00); RDW 20.9 % (10.5-14.5); WBC 12.4 thou/uL (4.0-11.0)
[2019-05-14 06:06] LABS: HEMOGLOBIN 6.4 gm/dL (12.0-15.0)
[2019-05-14 06:19] LABS: CALCIUM 7.7 mg/dL (8.5-10.1); CREATININE 2.8 mg/dL (0.6-1.0); POTASSIUM 4.5 mmol/L (3.5-5.1)
--- NOTE | 2019-05-14 07:00 | NUR ---
ASSUMED CARE OF PT AT 1900. NO OVERNIGHT EVENTS. HGB CRITICALLY LOW THIS MORNING, ORDERS RECEIVED TO TRANSFUSE PRBCs THIS MORNING. WILL CONTINUE TO MONITOR AND FOLLOW THE PLAN OF CARE.
--- NOTE | 2019-05-14 08:00 | NUR ---
RESTING COMFORTABLY ON VENT, FENTANYL 100 MCG/HR WITH PAIN LEVEL 4/10. PT EASILY DOZES OFF WHEN UNDISTURBED. SR, TOLERATING VENT, ADEQUATE URINE OUTPUT, STOOLING PER FECAL MANAGEMENT SYSTEM.
--- NOTE | 2019-05-14 10:50 | NUR ---
CALLED BROTHER, RIGO CLEOPATRA TO NOTIFY OF PT'S NEED FOR PRBC'S AND TO OBTAIN CONSENT. HE RESPONDED, "WE (MY DAD AND I) ARE NOT P0WER OF MECHANICAL EQUIPMENT TEST ENGINEER AND ARE NOT DEEMED RESPONSIBLE FOR THOSE DECISIONS. OUR WISHES ARE NOT TO DO ANY OF THAT. YOU MAY CALL MY DAD AND HE WILL SAY THE SAME THING".
--- NOTE | 2019-05-14 11:00 | NUR ---
CALLED RIGO WHELAN , FATHER, TO OBTAIN CONSENT FOR ADMINISTRATION OF BLOOD PRODUCTS-PRBC. HE FIRMLY STATED, "DO YOU KNOW MY DAUGHTER'S HISTORY? WE WANT HER TO BE COMFORTABLE, SHE IS GOING TO . WE HAD HER IN HOSPICE. SHE HAS BORDERLINE PERSONALITY DISORDER.....WE WERE ESTRANGED FROM HER. SHE NEVER LISTENS. WE TRIED TO GET HER TO QUIT SMOKING FOR 7-8 YEARS. SHE WILL NOT WEAR HER MASK, IT'S UP TO HER. THEY TRY TO GET HER TO WEAR HER MASK AND I HAVE TRIED TO TALK TO HER. THEN HER SA02 IS IN THE 70'S TO 80'S AND SHE IS UNRESPONSIVE, THEN TO THE HOSPITAL AGAIN. LET HER IN [place]...TO IN [place], NO EXTRAORDINARY CARE, NO PAIN, DNR." UNABLE TO OBTAIN BLOOD CONSENT.
--- NOTE | 2019-05-14 11:30 | NUR ---
RISK MANAGEMENT MARINE CARGO SPECIALIST, JOHN AND SALES CENTER MANAGER, FRANCO GARCIA PRESENT. PT IS ON FENTANYL GTT AT 100 MCG/HR, ON THE VENT AND CURRENTLY UNABLE TO MAKE HER OWN DECISIONS AT THIS TIME. DISCUSSED WISHES OF FAMILY, INABILITY TO OBTAIN BLOOD CONSENT AND SON VERBALIZED THEY ARE NOT THE DURABLE POWER HOME SALES CONSULTANT. IN RECENT COURSE OF CONVERSATION, THE FATHER STATED, "SHE WAS IN HOSPICE BEFORE THE SURGERY". CONTINUING PT'S PREVIOUSLY EXPRESSED WISHES AT THIS TIME PER RISK MANAGEMNT AND SALES CENTER MANAGER.
--- NOTE | 2019-05-14 13:15 | NUR ---
PLEASE, SEE VERBAL CONSENT OBTAINED FROM DR. BRUSH FOR MEDICAL NECESSITY OF BLOOD PRODUCTS.
--- NOTE | 2019-05-14 15:32 | NUR ---
PT ADMITTED RELATED TO RESP ARREST, RESP FAILURE, ABD PAIN, AND SEPTIC SHOCK. PT IS AN LTC PT AT [facility]. PT HAS A BROTHER, FATHER AND REDISCOVER SUBGRADE TESTER WHO ARE ALL INVOLVED IN HER CARE. PLAN IS FOR PT TO RETURN TO [facility] ONCE MECIALLY STABLE. CM TO FOLLOW INDICATED WITH DC PLANNING. CM TO PROVIDE UPDATED TO [facility].
--- NOTE | 2019-05-14 20:00 | NUR ---
VERY SLOW PROGRESS. PAIN CONTROLLED WITH FENTANYL GTT, SR, REMAINS ON VENT, TOLERATING TUBE FEEDINGS AND FLUSHES, LOOSE STOOL PER FECAL MANAGEMENT SYSTEM, ADEQUATE URINE OUTPUT. PRBC'S STILL UNAVAILABLE FROM [facility] BLOOD BANK. REPORT GIVEN TO FRANCIS VANCE RN.
--- NOTE | 2019-05-14 23:00 | NUR ---
1 unit PRBCs up as ordered. Pt has many antibodies and it took several hours to crossmatch. Order placed this am. Hgb 6.4. No patient consent on file, order given to dayshift RN by Dr. Hodges to give per medical necessity.
[2019-05-15] VITALS (26 sets, daily range): BP systolic 94–129; BP diastolic 44–75
[2019-05-15 05:30] LABS: HEMATOCRIT 21.7 % (37.0-47.0); MCH 29.4 pg (26.0-34.0); MCHC 32.4 g/dL (28.0-37.0); MCV 90.8 fL (80.0-100.0); RBC 2.39 mil/uL (4.20-5.00); RDW 20.4 % (10.5-14.5)
[2019-05-15 05:47] LABS: CALCIUM 7.9 mg/dL (8.5-10.1); CREATININE 2.7 mg/dL (0.6-1.0); POTASSIUM 4.4 mmol/L (3.5-5.1)
--- NOTE | 2019-05-15 05:57 | NUR ---
Shift summary: Pt remains lightly sedated on vent. Fentanyl gtt at 100mcg/hr. Versed IV prn. Pt appears to have quite a bit of discomfort with dressing change and repositioning. Right arm also very painful to any touch. Dr. Nation told this am it is from a previous IV infiltration. VSS on Levophed gtt. Able to titrate gtt down to 8mcg/min from 13.5 mcg/min at beginning of shift. Afebrile. No s/s transfusion reaction. Tolerating current vent settings. No ABG or chest xray ordered. AM labs pending. TPN w/ lipids continued at 75 ml/hr. Tube feed (Vital AF) increased to 40 ml/hr at 0400. Pt appears to be tolerating based on residuals but rubs abdomen frequently. Nods head yes that it hurts but also has midline abdominal incision. GRETA with minimal sanguinous drng. Serous drng noted from distal portion of MLAI where it has dehisced and jaime are removed. Packed as ordered and drsg changed. Stooling around fecal management system. Luna with adequate uop/ 1 liter/ 12 hrs. Blood sugars controlled. Plan of care reviewed and updated as able. Pt remains in bilateral soft wrist restraints as she remains impulsive reaching for lines and tubes. Abd binder remains in place to protect G-J tube and GRETA drain.
[2019-05-15 09:11] LABS: BE(vivo) -4.5 mmol/L (-2 to +3); HCO3 22.9 mmol/L (22.0-26.0); PCO2 55.2 mmHg (35.0-45.0); sO2 84.7 % (92.0-98.0)
[2019-05-15 09:12] LABS: pH 7.235 (7.360-7.450)
--- NOTE | 2019-05-15 13:22 | NUR ---
FAXED CLINICAL UPDATE TO [facility] SPOKE WITH CARMELO IN ADM SHE RECEIVED UPDATE AND DID A BEDSIDE VISIT. FAXED CLINICAL UPDATE TO KAMI AT [facility] RECEIVED CONFIRMATION. DP TO FOLLOW.
--- NOTE | 2019-05-15 16:40 | NUR ---
PT IS AWAKE AND ALERT . FOLLOW COMMANDS. LUNGS ARE DIMINISHED. REMAINS ON THE VENT. WEANING TRIAL THIS AM. SINUS RHYTHM ON THE HEALTH INFORMATICS ADVISOR. FECAL MANAGEMENT SYSTEM. GARCÍA TO DD WITH SUZAN URINE PRESENT. BILATERAL WRIST RESTRAINTS. ABDOMINAL DRESSING WOUND CHANGES. AND ABDOMINAL BINDER ON IN PLACE. DENIES PAIN FENTANYL DRIP INFUSING. TURN Q 2 HOURS. AND BATH DONE PARTIAL. NO ISSUES OR CONERNS NOTED TOLERATING TUBE FEEDING . ANIYA CONTINUE TO ASSESS AND MONITOR PER NURSING
[2019-05-16] VITALS (23 sets, daily range): BP systolic 94–130; BP diastolic 49–75
[2019-05-16 05:24] LABS: BE(vivo) -4.5 mmol/L (-2 to +3); HCO3 21.7 mmol/L (22.0-26.0); PCO2 44.7 mmHg (35.0-45.0); sO2 91.5 % (92.0-98.0)
[2019-05-16 05:25] LABS: pH 7.304 (7.360-7.450)
[2019-05-16 05:46] LABS: HEMATOCRIT 21.5 % (37.0-47.0); HEMOGLOBIN 6.8 gm/dL (12.0-15.0)
[2019-05-16 05:48] LABS: MCH 28.1 pg (26.0-34.0); MCHC 31.7 g/dL (28.0-37.0); MCV 88.6 fL (80.0-100.0); RBC 2.43 mil/uL (4.20-5.00); RDW 20.4 % (10.5-14.5); WBC 15.6 thou/uL (4.0-11.0)
[2019-05-16 06:12] LABS: CALCIUM 8.4 mg/dL (8.5-10.1); CREATININE 2.6 mg/dL (0.6-1.0); POTASSIUM 4.2 mmol/L (3.5-5.1)
[2019-05-16 09:49] LABS: BE(vivo) -1.4 mmol/L (-2 to +3); HCO3 23.9 mmol/L (22.0-26.0); PO2 63.3 mmHg (80.0-100.0); pH 7.362 (7.360-7.450); sO2 91.4 % (92.0-98.0)
[2019-05-16 16:20] LABS: HEMATOCRIT 25.7 % (37.0-47.0); HEMOGLOBIN 8.3 gm/dL (12.0-15.0)
--- NOTE | 2019-05-16 16:21 | NUR ---
PT IS PROGRESSING SLOWLEY. PT WAS EXTUBATED TODAY. PT TOLERATING TUBE FEEDS. CM TO FOLLOW INDICATED WITH DC PLANNING. TO PROVIDE CLINICAL UPDATES TO [facility] AND REDISCOVER SOLUTION DIRECTOR.
--- NOTE | 2019-05-16 16:26 | NUR ---
PT IS ALERT AND GOT EXTUBAITED TODAY. ON O2 NASAL CANULA AT 4 LITERS WITH SATURATION AT 90 PERCENT. ABDOMEN DRESSSING CHANGES DONE. TOLERATING TUBE FEEDINGS NO RESIDUAL. FENTANYL DRIP FOR PAIN CONTROL ISSUES. 1 UNIT ON BLOOD GIVEN TODAY. WILL CONTINUE TO PROGRESS TOWARDS NURSING GOALS AT THIS TIME.
[2019-05-17] VITALS (35 sets, daily range): BP systolic 79–128; BP diastolic 47–70
[2019-05-17 05:27] LABS: BE(vivo) -3.4 mmol/L (-2 to +3); HCO3 25.6 mmol/L (22.0-26.0); PCO2 67.3 mmHg (35.0-45.0); PO2 68.5 mmHg (80.0-100.0); sO2 88.9 % (92.0-98.0)
[2019-05-17 05:28] LABS: pH 7.198 (7.360-7.450)
[2019-05-17 05:43] LABS: HEMATOCRIT 25.4 % (37.0-47.0); HEMOGLOBIN 8.1 gm/dL (12.0-15.0); MCH 28.3 pg (26.0-34.0); MCHC 31.7 g/dL (28.0-37.0); MCV 89.1 fL (80.0-100.0); PLATELET COUNT 236 thou/uL (150-400); RBC 2.85 mil/uL (4.20-5.00); RDW 19.8 % (10.5-14.5); WBC 15.4 thou/uL (4.0-11.0)
[2019-05-17 05:56] LABS: ALBUMIN 1.5 g/dL (3.4-5.0); CALCIUM 8.9 mg/dL (8.5-10.1); CREATININE 2.3 mg/dL (0.6-1.0); POTASSIUM 3.9 mmol/L (3.5-5.1); TOTAL BILIRUBIN 0.2 mg/dL (<0.1-1.0); TOTAL PROTEIN 5.6 g/dL (6.4-8.2)
[2019-05-17 08:30] LABS: ABSOLUTE NEUTROPHILS 12.5 thou/uL (1.4-8.2); METAMYELOCYTES 2 %; MYELOCYTES 3 %
[2019-05-17 08:31] LABS: ANISOCYTOSIS 2+; PLATELET ESTIMATE NORMAL
[2019-05-17 08:33] LABS: MACROCYTES FEW; MICROCYTES FEW
[2019-05-17 08:34] LABS: OVALOCYTES OCCASIONAL; POIKILOCYTOSIS SLIGHT
[2019-05-17 12:10] LABS: BE(vivo) 1.3 mmol/L (-2 to +3); HCO3 27.6 mmol/L (22.0-26.0); PCO2 53.7 mmHg (35.0-45.0); PO2 72.5 mmHg (80.0-100.0); sO2 93.3 % (92.0-98.0)
[2019-05-17 12:11] LABS: pH 7.329 (7.360-7.450)
[2019-05-18] VITALS (48 sets, daily range): BP systolic 92–133; BP diastolic 44–74
[2019-05-18 04:21] LABS: ALBUMIN 1.6 g/dL (3.4-5.0); CALCIUM 8.4 mg/dL (8.5-10.1); CREATININE 2.1 mg/dL (0.6-1.0); POTASSIUM 3.3 mmol/L (3.5-5.1); TOTAL BILIRUBIN 0.2 mg/dL (<0.1-1.0); TOTAL PROTEIN 5.6 g/dL (6.4-8.2)
[2019-05-18 04:51] LABS: HEMATOCRIT 22.6 % (37.0-47.0); HEMOGLOBIN 7.2 gm/dL (12.0-15.0); MCH 27.9 pg (26.0-34.0); MCHC 31.7 g/dL (28.0-37.0); MCV 88.2 fL (80.0-100.0); PLATELET COUNT 273 thou/uL (150-400); RBC 2.57 mil/uL (4.20-5.00); RDW 19.8 % (10.5-14.5); WBC 13.9 thou/uL (4.0-11.0)
[2019-05-18 05:20] LABS: BE(vivo) 2.8 mmol/L (-2 to +3); HCO3 29.8 mmol/L (22.0-26.0); PCO2 60.6 mmHg (35.0-45.0); PO2 64.4 mmHg (80.0-100.0); sO2 90.1 % (92.0-98.0)
[2019-05-18 05:59] LABS: ABSOLUTE NEUTROPHILS 10.3 thou/uL (1.4-8.2); ANISOCYTOSIS 2+; METAMYELOCYTES 7 %; MYELOCYTES 7 %
[2019-05-18 06:01] LABS: POLYCHROMASIA 1+
[2019-05-18 14:01] LABS: HEMATOCRIT 22.5 % (37.0-47.0); HEMOGLOBIN 7.2 gm/dL (12.0-15.0)
[2019-05-19] VITALS (49 sets, daily range): BP systolic 90–123; BP diastolic 42–74
[2019-05-19 04:44] LABS: HEMATOCRIT 22.4 % (37.0-47.0); HEMOGLOBIN 7.1 gm/dL (12.0-15.0); MCH 28.4 pg (26.0-34.0); MCV 88.9 fL (80.0-100.0); PLATELET COUNT 300 thou/uL (150-400); RBC 2.51 mil/uL (4.20-5.00); RDW 20.1 % (10.5-14.5); WBC 14.3 thou/uL (4.0-11.0)
[2019-05-19 04:47] LABS: ALBUMIN 1.9 g/dL (3.4-5.0); CALCIUM 8.7 mg/dL (8.5-10.1); CREATININE 1.9 mg/dL (0.6-1.0); POTASSIUM 3.2 mmol/L (3.5-5.1); TOTAL BILIRUBIN 0.2 mg/dL (<0.1-1.0); TOTAL PROTEIN 5.9 g/dL (6.4-8.2)
[2019-05-19 04:56] LABS: BE(vivo) 5.3 mmol/L (-2 to +3); HCO3 32.6 mmol/L (22.0-26.0); PO2 77.6 mmHg (80.0-100.0); sO2 93.7 % (92.0-98.0)
[2019-05-19 04:57] LABS: PCO2 67.8 mmHg (35.0-45.0)
--- NOTE | 2019-05-19 07:12 | NUR ---
CHART CHECK. REPORT GIVEN TO HILLARY REA.
[2019-05-19 08:21] LABS: ANISOCYTOSIS 2+; METAMYELOCYTES 2 %; MYELOCYTES 1 %
--- NOTE | 2019-05-19 10:39 | NUR ---
ASSESSMENTS AND INTERVENTIONS DOCCUMENTED. DR. BRUSH ROUNDED, ORDERS FOR SWALLOW EVAL GIVEN, SWALLOW EVAL COMPLETE, PATIENT REMAINS NPO UNTIL VIDEO SWALLOW AND UPPER GI SWALLOW EVAL COMPLETE.
--- NOTE | 2019-05-19 15:02 | O ---
[facility] [place] [address] OPERATIVE REPORT Name: MIGUEL COLEMAN Room #: 239-P ADM IN M.R.#: [id number] Admission: 05/08/19 Attend Phys: Marv Vasquez MD Discharge: Date of : 71 Report #: [id number] THIS REPORT FOR: //name// CC: Marv Jones DATE OF SERVICE: 05/11/2019 PROCEDURE PERFORMED: 1. Take back exploratory laparotomy (ABThera/open abdomen). 2. Resection of gastrojejunostomy anastomosis. 3. Lysis of adhesions for 45 minutes. 4. Creation of gastrojejunostomy anastomosis. 5. Creation of gastrostomy feeding tube (gastric remnant). 6. Placement of drain. 7. Abdominal closure. 8. Placement of incisional wound VAC. PREOPERATIVE DIAGNOSES: 1. Open abdomen. 2. Intestinal discontinuity. 3. Sepsis. 4. Respiratory failure. POSTOPERATIVE DIAGNOSIS: Perforated marginal ulcer. COMPLICATIONS: None. SPECIMENS: None. ESTIMATED BLOOD LOSS: Less than 50 mL. URINE OUTPUT: Not measured by Anesthesia, Luna was then placed. FINDINGS: 1. Stapled off bowel was Ryan limb several centimeters distal to the gastrojejunostomy anastomosis. 2. Severe hepatomegaly. 3. Severe right upper quadrant adhesions. 4. Minimal ongoing abdominal contamination. INDICATIONS FOR PROCEDURE: The patient presented on in severe extremis. The patient was taken emergently to the operating room for damage control laparotomy and ABThera wound VAC was placed. She has been recovering in the ICU and is improving. She needed to be taken for at least an ABThera exchange, possible restoring of intestinal continuity. [facility] [address] [place] [address] OPERATIVE REPORT Name: MIGUEL COLEMAN Room #: 239-P ADM IN M.R.#: [id number] Admission: 05/08/19 Attend Phys: Marv Vasquez MD Discharge: Date of : 71 Report #: [id number] DESCRIPTION OF PROCEDURE: The patient was taken to the operating room and placed in supine position. She was already intubated. General anesthesia was induced. Preprocedure antibiotics were administered already. The wound VAC portion of the ABThera was removed and the abdominal liner was left in place. The abdomen was prepped and draped in the usual sterile fashion. My partner Ken Gordillo was present for the procedure. The abdomen was explored. There were dense adhesions in the upper abdomen. These were lysed over the course of approximately 45 minutes. Gastric remnant was identified anteriorly. This was freed up. Posterior to this was the gastric pouch. The transverse colon was lifted up and the original site of the perforation was identified. A larger window was made in the transverse mesocolon using extreme caution not to devascularize the colon and this was done successfully. The bowel that was trimmed that was stapled off was traced proximally and it was identified that this was indeed the Ryan limb leading to the gastrojejunostomy. The gastrojejunostomy was only several centimeters proximal to the line of the original resection point at the procedure on . The decision was made to resect the gastrojejunostomy anastomosis. This was done using extreme caution and electrocautery. We then planned for a gastrojejunostomy anastomosis. The transverse colon, mesocolon was then closed using silk suture in a continuous running fashion. The gastrotomy in the gastric pouch was then pursestring sutured using a Prolene stitch in a continuous running fashion. A size 25 EEA anvil was passed through the gastrotomy and the pursestring was tying down around it. The small bowel stapled off at 's procedure on the distal end was then identified. The small bowel in this region, which is the Ryan limb, was that severely adhesed and matted together and this would be the same position for our new gastrojejunostomy anastomosis. Therefore, these adhesions were lysed in order to gain enough straight length for the Ryan limb. The size 25 EEA stapler was passed through the enterotomy that was now created after cutting off our staple line and the prong was brought out the antimesenteric border of the new planned Ryan limb. It was connected to the anvil and inserted. There was not any undue tension and that the small bowel mesentery was not twisted. It was also ensured that there is no structure within the grasp of the EEA stapler. The stapler was tightened down, orientation and tension was ensured. The stapler was fired. The EEA stapler was removed. The distal enterotomy was then closed with a stapler came out of using [place] and the enterotomy was stapled shut using a JACKIE-75 blue load stapler. The air leak test was then performed by having the anesthesiologist push air into the NG tube, which was definitely in the gastric pouch. This was visualized and retracted back out of the way of our stapler. This completed the anastomosis. Next, the gastrostomy feeding tube was planned, and for that, a drain was placed directly underneath the gastrojejunostomy anastomosis and brought out the right lateral sidewall. The gastrostomy feeding tube was then created by making a pursestring suture using silk suture on the gastric remnant x 2. Gastrotomy was created. The 20-Czech feeding tube was [facility] [place] [address] OPERATIVE REPORT Name: MIGUEL COLEMAN Room #: 239-P ADM IN M.R.#: [id number] Admission: 05/08/19 Attend Phys: Marv Vasquez MD Discharge: Date of : 71 Report #: [id number] brought through the left lateral abdominal wall at the level of the rectus muscles and placed into the gastric lumen. The balloon was expanded. Four-quadrant stay sutures were placed from the gastric remnant to the anterior abdominal wall. The G-tube was pulled up. The stay sutures were tightened down. The abdomen was irrigated out before the feeding tube using approximately 5 liters of warm irrigation. Hemostasis was present. The fascia was closed using #1 PDS in a continuous running fashion. The subcutaneous wound was irrigated out. The drain was secured into place using 0 silk suture. Helton were used to close the wound. A Prevena wound VAC was applied. The patient was critical throughout the course of the procedure; however, there is no acute worsening of her condition, therefore, she was stable. She was left intubated and transferred back to the ICU in a very similar condition as she was in before the procedure. <ELECTRONICALLY SIGNED> By: Aleks Hodges MD 05/19/19 [id number] Aleks Hodges MD /nt
--- NOTE | 2019-05-19 16:35 | NUR ---
CARE TEAM INDICATED THAT PT IS PROGRESSING SLOWLY. CM TO SEE IF PT WOULD BE INTERESTED IN LTAC ONCE APPROPRIATE. CM TO FOLLOW INDICATED WITH DC PLANNING.
--- NOTE | 2019-05-19 18:06 | NUR ---
ASSESSMENTS AND INTERVENTIONS DOCCUMENTED. PATIENT HAVING OVER 1000 LIQUID STOOL OUT THROUGH OUT THE NIGHT. PATIENT CONTINUES TO HAVE LARGE AMMOUNTS OF STOOL. DR GONSALO GREEN AND HE IS AWARE OF OUTPUT. CONTINUE TUBE FEEDING AT GOAL. PATIENT RECIEVING 1 LR PRBC FOR HGB 7.0. PATIENT TOLERATING IT WELL.
[2019-05-19 21:54] LABS: HEMATOCRIT 23.6 % (37.0-47.0); HEMOGLOBIN 7.5 gm/dL (12.0-15.0)
[2019-05-20] VITALS (21 sets, daily range): BP systolic 96–122; BP diastolic 48–74
[2019-05-20 05:16] LABS: HEMATOCRIT 24.5 % (37.0-47.0); HEMOGLOBIN 7.7 gm/dL (12.0-15.0); MCH 28.4 pg (26.0-34.0); MCHC 31.5 g/dL (28.0-37.0); MCV 90.1 fL (80.0-100.0); RBC 2.72 mil/uL (4.20-5.00); RDW 19.4 % (10.5-14.5)
[2019-05-20 05:32] LABS: CALCIUM 8.4 mg/dL (8.5-10.1); CREATININE 1.7 mg/dL (0.6-1.0); POTASSIUM 3.4 mmol/L (3.5-5.1)
--- NOTE | 2019-05-20 06:44 | NUR ---
PATIENT ALERT AND ORIENTED X4, PAIN CONTROLLED WITH MEDICATION. ON BIPAP THROUGHOUT THE NIGHT, PATIENT EDUCATED ON THE IMPORTANCE OF KEEPING BIPAP ON WHILE ASLEEP. RECTAL TUBE OUTPUT 1000 ML. GARCÍA PATIENT WITH ADEQUATE OUTPUT. ONE UNIT OF BLOOD GIVEN, H&H INCREASED. POTASSIUM REPLACED. NO SIGN OF ACUTE DISTRESS NOTED AT THIS TIME. WILL CONTINUE TO MONITOR.
[2019-05-20 07:23] LABS: BE(vivo) 3.2 mmol/L (-2 to +3); HCO3 30.8 mmol/L (22.0-26.0); PCO2 66.7 mmHg (35.0-45.0); PO2 70.4 mmHg (80.0-100.0); pH 7.282 (7.360-7.450); sO2 91.5 % (92.0-98.0)
--- NOTE | 2019-05-20 18:35 | NUR ---
ASSESSMENTS AND INTERVENTIONS DOCCUMENTED. PATIENT RESTING AT SHIFT CHANGE. DR. BRUSH ROUNDING AND ORDERS FOR FIBER RECIEVED TO REDUCE LIQUID STOOL OUTPUT. PATIENT CONTINUOUSLY LEAKING STOOL WITH SMELL OF TUBE FEEDING. DR. BRUSH MENTIONING PATIENT'S INCISION BEGGINING TO OPEN AND LEAK MORE FLUIDS. PATIENT GOING FOR CT TO CHECK FOR BLEEDING IN THE ABD. HEPRIN ON HOLD AT THIS TIME. PATIENT THEN GOING FOR VIDEO/ XRAY SWALLOW. PATIENT TOLERATED SWALLOW EVALUATION WITH NO APIRATION OF THIN OR SOLID FOODS. PATIENT EDUCATED ON NEXT STEPS IN REGARDS TO NPO STATUS. PATIENT EXPRESSING UNDERSTANDING. PATIENT STILL HAVING CRITICAL ABGS. PATIENT SLOWLY REACHING GOALS WITH PASSING SWALLOW EVAULUATION AND TOLERATING NASAL CANUALA THROUGH OUT THE SHIFT. WHEN PATIENT IS RESTING, EPISODES OF BRADYCARDIA IN THE 40S-50'S OCCURING. DR. IVERSON TEXTED VIA [employer] TEXT. WAITING ON RESPONSE AT THIS TIME. THE POC IS TO DO UPPER GI STUDY AND TRANSFER TO LESS CRITICAL FLOOR.
[2019-05-21] VITALS (22 sets, daily range): BP systolic 97–113; BP diastolic 39–64
[2019-05-21 05:58] LABS: HEMATOCRIT 23.7 % (37.0-47.0); HEMOGLOBIN 7.4 gm/dL (12.0-15.0); MCH 28.5 pg (26.0-34.0); MCHC 31.5 g/dL (28.0-37.0); MCV 90.6 fL (80.0-100.0); RBC 2.61 mil/uL (4.20-5.00); RDW 19.4 % (10.5-14.5)
[2019-05-21 06:29] LABS: ANION GAP 6 mmol/L (7-16); BUN 30 mg/dL (7-18); CALCIUM 8.2 mg/dL (8.5-10.1); CHLORIDE 112 mmol/L (98-107); CO2 33 mmol/L (21-32); CREATININE 1.4 mg/dL (0.6-1.0); GLUCOSE 82 mg/dL (74-106); POTASSIUM 3.8 mmol/L (3.5-5.1); SODIUM 151 mmol/L (136-145); TROPONIN-I <0.06 ng/mL (<0.06)
--- NOTE | 2019-05-21 06:36 | NUR ---
PATIENT ALERT AND ORIENTED X4, ON BIPAP AT40% FIO2. PATIENT WORE BIPAP ALL NIGHT AND CURRENTLY WEARING. 02 SAT REMAINED ABOVE 92%. PATIENT TOLERATING TUBE FEEDING AT GOAL WEIGHT. GRETA DRAINED 90ML. GARCÍA ADEQUATE OUTPUT THROUTHOUT THE SHIFT. ABDOMINAL BINDER SOILED, DRESSING INTACT, WILL REPLACE. PATIENT EDUCATED ON THE IMPORTANCE OF INCREASED ACTIVITY. PATIENT ABLE TO HELP TURN AND SCOOT SELF UP IN BED WITH DIRECTION. PROGRESSING TOWARDS GOAL. NO SIGN OF ACUTE DISTRESS NOTED AT THIS TIME. WILL CONTINUE TO MONITOR.
--- NOTE | 2019-05-21 14:08 | NUR ---
REFERRAL FAXED TO [facility] AND UPDATED ADMISSIONS [facility].
--- NOTE | 2019-05-21 16:05 | NUR ---
CM SPOKE WITH PT THIS MORNING AND DISCUSSED PREFERENCE FOR LTAC FACILITIES. PT ASKED THAT REFERRAL BE SENT TO [facility] FOR REVIEW FOR POSSIBLE ADMISSION. NURSE TO SEND AND NOTIFY LIAISON. CM TO FOLLOW INDICATED WITH DC PLANNING.
--- NOTE | 2019-05-21 18:38 | NUR ---
ASSUMED CARE AT 0700. PT A&OX4. PT WAS ON BIPAP AT BEGINNING OF SHIFT BUT AROUND 0900 SWITCHED TO 4L NC. PT HAS REMAINED ON NC THIS SHIFT. PT GOT UP WITH ASSIST OF PT AND RN TO DANGLE ON SIDE OF BED. PT TOLERATED FOR A FEW MINUTES AND THEN BECAME SOA AND O2 SAT DROPPED FROM 94%TO 88%. PT ALSO WORKED WITH OT TODAY. PT TOLERATED TUBE FEEDINGS TODAY WITH ZERO RESIDUALS. PT STARTED ON CLEAR NECTAR THICK DIET BY DR. BRUSH TODAY. PT TOLERATED APPLE JUICE WITH OUT ANY PROBLEMS.
[2019-05-22] VITALS (11 sets, daily range): BP systolic 96–105; BP diastolic 45–59
--- NOTE | 2019-05-22 03:15 | NUR ---
ASSUMED CARE OF PATIENT AT 1900. AFEBRILE. TURNED TO CLEAN RITESH AREA, IMMEDIATELY DESATTED. BIPAP PLACED, O2 SATS ABOVE 90%. TRIED TO WEAN DOWN FIO2, DESATS INTO THE 80'S. RESTING THROUGH THE NIGHT. SIGNIFICANTLY LESS STOOL OUTPUT. ASSESSMENT CHARTED. WORKING TOWARDS POC GOALS.
[2019-05-22 05:58] LABS: HEMATOCRIT 24.7 % (37.0-47.0); HEMOGLOBIN 7.7 gm/dL (12.0-15.0); MCH 28.7 pg (26.0-34.0); MCHC 31.3 g/dL (28.0-37.0); MCV 91.7 fL (80.0-100.0); RBC 2.7 mil/uL (4.20-5.00); RDW 19.7 % (10.5-14.5); WBC 12.7 thou/uL (4.0-11.0)
[2019-05-22 06:14] LABS: CALCIUM 8.4 mg/dL (8.5-10.1); CREATININE 1.2 mg/dL (0.6-1.0); MAGNESIUM 1.5 mg/dL (1.8-2.4); POTASSIUM 3.6 mmol/L (3.5-5.1)
[2019-05-23] VITALS (24 sets, daily range): BP systolic 91–117; BP diastolic 48–67
[2019-05-23 04:42] LABS: HEMATOCRIT 25.2 % (37.0-47.0); HEMOGLOBIN 7.8 gm/dL (12.0-15.0); MCH 28.3 pg (26.0-34.0); MCHC 31.2 g/dL (28.0-37.0); MCV 90.8 fL (80.0-100.0); RBC 2.77 mil/uL (4.20-5.00); RDW 19.2 % (10.5-14.5); WBC 14.2 thou/uL (4.0-11.0)
[2019-05-23 04:46] LABS: ALBUMIN 1.6 g/dL (3.4-5.0); CALCIUM 8.4 mg/dL (8.5-10.1); CREATININE 1.1 mg/dL (0.6-1.0); POTASSIUM 3.6 mmol/L (3.5-5.1); TOTAL BILIRUBIN 0.2 mg/dL (<0.1-1.0); TOTAL PROTEIN 6.5 g/dL (6.4-8.2)
--- NOTE | 2019-05-23 05:32 | NUR ---
AOX3. MEDICATED FOR PAIN RELIEF. AFEBRILE. ON BIPAP DURING THE NIGHT. TOLERATING BIPAP. VSS. ABD DRESSING CHANGED DURING THE NIGHT. OUPUT NOTED FROM GRETA DRAIN. FECAL MANAGEMENT SYSTEM IN PLACE, MODEERATE OUTPUT. GARCÍA, URINE OUTPUT GREATER THAN 30 CC/HR. TF ONGOING. FREQUENT TURNS DURING THE NIGHT. PT SLOWLY PROGRESSING TOWARDS GOALS. WILL CONTINUE TO MONITOR.
--- NOTE | 2019-05-23 12:12 | NUR ---
PLANS FOR TRACH. PLANNING DC TO [facility] PER PT'S CHOICE. THEYNEED TO CONFIRM ACCEPTANCE AND HAVE DISCUSSED WITH SANG TAM TODAY. QUESTIONS ABOUT RETURN TO LTC FACILITY WITH TRACH AND PER PEDRO MCDONALD ADMISSIONS AT [facility], FACILITY CAN ACCEPT BACK TO LTC WITH TRACH AFTER LTAC STAY, UNLESS UNABLE TO BE WEANED FROM VENT. ALSO ASKED FACILITY ADMISSIONS TO LOOK INTO SECONDARY MEDICAID SHOWING INACTIVE CURRENTLY.
--- NOTE | 2019-05-23 18:25 | NUR ---
ASSESSMENTS AND INTERVENTIONS DOCCUMENTED. NO NEW CHANGES THROUGH OUT SHIFT. ABX DC'D PER DR. PERALTA. PATIENT SLOWLY PROGRESSING TOWARDS GOALS DR. BRUSH BEEN CONSULTED FOR TRACH PLACEMENT. THE POC IS TO CONTINUE TO MONITOR RESPIRATORY STATUS AND PLACE TRACHEOSTOMY.
[2019-05-24] VITALS (23 sets, daily range): BP systolic 86–113; BP diastolic 46–68
--- NOTE | 2019-05-24 04:06 | NUR ---
NO OVERNIGHT EVENTS. PT. AWAKE FOR MOST OF NIGHT, RESTING AND WATCHING TV IN BED. VSS. ASSESSMENTS AND VITAL SIGNS CHARTED. SEE WOUND DOCUMENTATION. FMS TUBE REPLACED. CONTINUE TO FOLLOW POC. WILL CONTINUE TO MONITOR.
--- NOTE | 2019-05-24 16:19 | NUR ---
PT DRESSING CHANGED TO ABDOMEN. ON ANTIBIOTICS. TURN Q 2 HOURS. FAMILY AT BEDSIDE TODAY TO VISIT PT. SCDS ON BILATERAL.LUNGS ARE CLEAR TO DIMINISHED. REMAINS ON BIPAP TODAY RESTING AND SLEEPING. GARCÍA AND FECAL SYSTEM MANGEMENT IN PLACE. SINUS RHYTHM TO SINUS TACH AT TIMES ON THE ALTERATIONS TAILOR. WILL CONTINUE TO ASSESS AND MONITOR PER NURSING
--- NOTE | 2019-05-24 18:01 | NUR ---
ASSUMED CARE AT 1630.
--- NOTE | 2019-05-24 20:00 | NUR ---
ASSUMED CARE OF PT AWAKE AND ALERT HEDRICK NEURO INTACT VSS SINUS RHYTHM GENO TUBE FEEDING VIA GJ FEEDING TUBE. ABD DRESSING INTACT WITH ABD BINDER FMS WITH MOD AMT YELLOW/BROWN LIQ STOOL. REPOSITIONED. WILL CONT TO MONITOR.
--- NOTE | 2019-05-24 22:00 | NUR ---
PT HAS DRANK 8 CUPS OF APPLE THICK NECTAR. COMPLETE Bath and ABD DRESSING CHANGE DONE. CALM AND COOPERATIVE. WILL CONT TO MONITOR.
[2019-05-25] VITALS (25 sets, daily range): BP systolic 82–121; BP diastolic 40–77
--- NOTE | 2019-05-25 07:00 | NUR ---
PATIENT ALERT AND ORIENTED X4, NO COMPLAINTS OF PAIN. PATIENT WORE BIPAP THROUGHOUT THE NIGHT, CURRENTLY ON 4L NASAL CANNULA. RECTAL TUBE IN PLACE, LEAKAGE AROUND. GARCÍA PATENT WITH ADEQUATE OUTPUT. ABDOMINAL DRESSING CHANGED. J/P DRAIN MINIMAL OUTPUT. PATIENT RESTED WELL OVER NIGHT. NO SIGN OF ACUTE DISTRESS NOTED AT THIS TIME. WILL CONTINUE TO MONITOR.
--- NOTE | 2019-05-25 16:29 | NUR ---
PT IS ALERT AND OREINTED X4. DRESSING CHANGED TO ABDOMEN SEROUS DRAINAGE NOTED CHANGED PER ORDER. ABDOMINAL BINDER ON PT. PT ON ANTIBIOTICS. ON 4 LITERS NASAL CANULA TODAY OXYGEN SATURATION IS 99 PERCENT. TURN Q 2 HOURS. SCDS ON BILAERAL AND FECAL SYSTEM AND GARCÍA IN PLACE. WILL CONTINUE ONGOING NURSING PLAN OF CARE AT THIS TIME
[2019-05-26] VITALS (24 sets, daily range): BP systolic 91–121; BP diastolic 55–79
--- NOTE | 2019-05-26 06:00 | NUR ---
PT AWAKE AND ALERT FOLLOWS COMMANDS. BATHED ABD DRESSINGS CHANGED 1000 CC UO THIS SHIFT. GENO TUBE FEEDING AT 60 CC/HR. POSSIBLE TRACH THIS WEEK. WILL CONT TO MONITOR
[2019-05-26 11:04] LABS: HEMATOCRIT 26.1 % (37.0-47.0); HEMOGLOBIN 8.2 gm/dL (12.0-15.0); MCH 29.1 pg (26.0-34.0); MCHC 31.5 g/dL (28.0-37.0); MCV 92.5 fL (80.0-100.0); RBC 2.83 mil/uL (4.20-5.00); RDW 19.1 % (10.5-14.5); WBC 12.3 thou/uL (4.0-11.0)
--- NOTE | 2019-05-26 14:03 | NUR ---
MET WIT PT THIS AM SHE WAS AWAKE AND ORIENTED. REVIEWED HOSPTIALIZATION, PROLONGED INTUBATION A ND THEN NEED FOR BIPAP AND RECOMMENDATION FOR PERMANENT TRACH PLACEMENT. PT RECALLS PAST COUPLE WEEKS AND INDICATES SHE IS AGREEABLE WITH TRACH AND TRANSITION TO LTAC AT [facility] PRIOR TO RETURN TO LTC AT [facility]. DISCUSSED MEDICAL DPOA WITH PT AND SHE WOULD LIKE TO COMPLETE DOCUMENT AND NAME HER BROTHER RIGO WHELAN JR AGENT. CALL TO RIGO MARCUS TO UPDATE AND HE STATES HE NEEDS TO THINK ABOUT. RIGO MARCUS LATER CALLED CM AND IS AGREEABLE TO BEING PT'S AGENT FOR MEDICAL POA. PT NOW SLEEPING AND ON BIPAP. WILL FOLLOW UP TO COMPLETE DOCUMENT. PHONE CALL TO PT'S REDISCOVER TRANSCRIBING OPERATOR HEAD KAMI AND PROVIDED UPDATE TO HER. YONATAN FROM [facility] HERE AND UPDATED. [facility] HAS NOT GIVEN FINAL DECISION ON ACCEPTANCE OF PT R/T SECONDARY MEDICAID IN INACTIVE STATUS. YONATAN WILL NOTIFIY CM OF DECISION JIMENA.
--- NOTE | 2019-05-26 14:58 | NUR ---
WOUND CONSULT; UPON ASSESSMENT THISS IS A SURGICAL DEHISCED WOUND WHICH TUNNELS AT 12:00 AND 6:00. YELLOW SHLOUGHY TISSUE THROUGHOUT THE WOUND. RECOMMENDATION; DISCUSSED WITH GERARDO THORNTON BY PHONE AND i WILL CONSULT DR CHARLES AT THIS TIME. DISCUSSED WITH HILLARY
--- NOTE | 2019-05-26 17:04 | NUR ---
ASSESSMENTS AND INTERVENTIONS DOCCUMENTED. WOUND CARE VISITING PATIENT, NO NEW ORDERS. PATIENT IS WORKING TOWARDS GOALS. TRACHESOTOMY PLACEMENT IS SCHEDULED FOR SUNDAY PER DR BRUSH.
[2019-05-27] VITALS (24 sets, daily range): BP systolic 100–123; BP diastolic 56–73
[2019-05-27 06:12] LABS: APTT 31.5 Seconds (24.5-32.8); INR 1.1; PROTIME 10.9 Seconds (9.3-11.4)
[2019-05-27 06:18] LABS: ALBUMIN 1.5 g/dL (3.4-5.0); ANION GAP < 0 mmol/L (7-16); BUN 23 mg/dL (7-18); CALCIUM 8.7 mg/dL (8.5-10.1); CHLORIDE 103 mmol/L (98-107); CO2 44 mmol/L (21-32); CREATININE 0.8 mg/dL (0.6-1.0); GLUCOSE 127 mg/dL (74-106); PHOSPHORUS 3.1 mg/dL (2.5-4.9); POTASSIUM 4.6 mmol/L (3.5-5.1); SODIUM 145 mmol/L (136-145)
--- NOTE | 2019-05-27 12:41 | NUR ---
FOLLOWING FOR DC PLANNING. CLINICAL INFO REVIEWED. COMPLETED MEDICAL DPOA THIS AM AND COPY PLACED IN CHART, COPY PROVIDED TO [facility]. THERE IS DISCREPENCY IN MEDICARE DAYS FROM [facility] INFO AND [facility] INFO. [facility] SHOWS PT IN LTC RESERVE MEDICARE ACUTE DAYS AND PT'S SECONDARY MEDICAID IS IN INACTIVE STATUS. [place] [id number] TODAY [facility] DECLINES PT FOR LTAC ADMIT. DISCUSSED WITH PT [facility] DECISION AND ALTERNATE LTAC CHOICES AND SHE STATED SHE HAS NO PREFERENCE SO REFERRAL FAXED TO BOTH [facility] AND [facility] TODAY. [facility]RO FROM [facility] ADMISSIONS HERE TODAY. REFERRAL TO [facility] TODAY IN [facility] [place] FOR MEDICAID JALEESA NEEDED FOR LTAC PLACEMENT AND FOR PT'S LTC AT [facility]. HARRY FROM [facility] WILL BE HERE LATER TODAY TO MEET WITH PT FOR MEDICAID JALEESA. PT HAS INDICATED SHE IS AGREEABLE TO [facility] ASSIST WITH MEDICAID JALEESA AND AGREEABLE TO GOING TO EITHER [facility] OR [facility].
--- NOTE | 2019-05-27 13:31 | NUR ---
ASSUMED CARE @ 0700 05/27/19, PT ASSESSMENTS AND VSS COMPLETE PER ICU PROTOCOL. PT TO HAVE TRACH PLACED TOMORROW, SURGERY EXPLAINED BY DR BRUSH TO PT, CONSENT SIGNED. DR ROBERSON (WOUND CARE) AT BEDSIDE, NEW ORDERS RECIEVED.
--- NOTE | 2019-05-27 20:50 | NUR ---
GJ TUBE APPEARS TO BE LEAKING TUBE FEED AROUND INSERTION SITE ON ABDOMEN. GJ TUBE FLUSHED WITH WATER. WATER THEN BEGAN LEAKING AROUND INSERTION SITE. MOLD STAMPER AND REPAIRER ALARAB NOTIFIED. ORDERS OBTAINED TO KEEP NPO AND STOP USING GJ TUBE. PT PREVIOUSLY HAD ORDERS TO MAKE NPO AT MIDNIGHT FOR SCHEDULED TRACH. WILL CONTINUE TO MONITOR SITE FOR LEAKING. PER MOLD STAMPER AND REPAIRER ALARAB, SITUATION CAN BE FURTHER ADDRESSED IN THE MORNING WHEN DOCTORS ROUND.
[2019-05-28] VITALS (48 sets, daily range): BP systolic 101–124; BP diastolic 57–80
[2019-05-28 05:47] LABS: HEMATOCRIT 23.7 % (37.0-47.0); HEMOGLOBIN 7.6 gm/dL (12.0-15.0); MCH 29.5 pg (26.0-34.0); MCHC 32.3 g/dL (28.0-37.0); MCV 91.4 fL (80.0-100.0); RBC 2.59 mil/uL (4.20-5.00); RDW 17.8 % (10.5-14.5); WBC 8.7 thou/uL (4.0-11.0)
[2019-05-28 06:12] LABS: ALBUMIN 1.5 g/dL (3.4-5.0); ANION GAP < 0 mmol/L (7-16); BUN 21 mg/dL (7-18); CALCIUM 8.8 mg/dL (8.5-10.1); CHLORIDE 101 mmol/L (98-107); CO2 44 mmol/L (21-32); CREATININE 0.7 mg/dL (0.6-1.0); GLUCOSE 88 mg/dL (74-106); MAGNESIUM 1.7 mg/dL (1.8-2.4); POTASSIUM 4.4 mmol/L (3.5-5.1); SGOT 15 U/L (15-37); SGPT 19 U/L (30-65); SODIUM 144 mmol/L (136-145); TOTAL BILIRUBIN 0.3 mg/dL (<0.1-1.0)
--- NOTE | 2019-05-28 14:57 | NUR ---
PT IN HER LIFE TIME RESERVE MEDICARE ACUTE DAYS. [facility] AND [facility] DECLINE REFERAL FOR LTAC ADMIT. [facility] UPDATED TODAY AND SALES REPRESENTATIVE [employer] WILL MAKE DECISION ON ACCEPTANCE. PEDRO FROM [facility] BROUGHT PT'S PURSE TO TODAY AND REQUESTED MELTING OPERATOR ADD TO PT'S BELONGINGS LIST. PT IN OR FOR TRACH AND INSPECTION OF G-J SITE AND ABD INCISION. CM TO FOLLOW UP WITH PT TO SEE IF BANK STATEMENT IN HER PURSE FOR MEDICAID APPLICATION FINANCIAL VERIFICATION NEEDED.
--- NOTE | 2019-05-28 18:13 | HC ---
[facility] [place] [address] CONSULTATION Name: MIGUEL COLEMAN Room #: 239-P ADM IN M.R.#: [id number] Admission: 05/08/19 Attend Phys: Marv Vasquez MD Discharge: Date of : 71 Report #: [id number] THIS REPORT FOR: //name// CC: Marv Jones DATE OF SERVICE: 05/09/2019 PALLIATIVE CARE CONSULTATION REQUESTING PHYSICIAN: Nikia. CHIEF COMPLAINT: Acute on chronic combined respiratory failure. HISTORY OF PRESENT ILLNESS: The patient presented with a bowel perforation. She had emergency laparotomy. Subsequently, has had acute on chronic combined respiratory failure and has been ventilated. She has a history of very severe COPD with recurrent admissions, recurrent intubations. Most recently, the patient is on 4 pressors for a septic shock. Unfortunately, the patient has been in and out of responsiveness; however, at this point in time, she has been responsive and appropriate to yes or no questions. She is able to write minimal amounts this time. She was previously made DNR. The patient and I discussed this today. She appears to be in flyjwcnw-vf-qelkyt pain at this time. We did have discussion prior to reinitiating increase in fentanyl. PAST MEDICAL HISTORY: Severe COPD, bowel perforation, chronic combined respiratory failure. SOCIAL HISTORY: Father is next of kin and has been making decisions with regards to the patient. She was listed as DNR prior to my arrival. Again, recurrent admissions as previously stated. ALLERGIES: NSAIDs and aspirin. MEDICATIONS: Again, she is on 4 pressors, Levophed, vasopressin, epinephrine, and Marco-Synephrine. Additionally, she has fentanyl drip. FAMILY HISTORY: Noncontributory. REVIEW OF SYSTEMS: Unable to obtain majority due to present medical condition. She is understandably in abdominal pain at this time, which is her biggest concern. PHYSICAL EXAMINATION: VITAL SIGNS: Temperature 38.6, pulse 108, respiratory rate 21 and 99% on ventilation, 89/62 blood pressure. [facility] [address] [place] [address] CONSULTATION Name: MIGUEL COLEMAN Room #: [facility] IN M.R.#: [id number] Admission: 05/08/19 Attend Phys: Marv Vasquez MD Discharge: Date of : 71 Report #: [id number] GENERAL: The patient is alert. She is answering questions in yes or no, head nods appropriately as well as some handwriting. HEENT: No scleral icterus. No conjunctival injection. CARDIOVASCULAR: Slightly tachycardic, otherwise regular rhythm currently. RESPIRATORY: Ventilatory lung sounds noted. ABDOMEN: Diminished bowel sounds are noted. INTEGUMENTARY: Minimal mottling to right upper extremity, otherwise within normal limits. LABORATORY DATA: Reviewed. ASSESSMENT AND PLAN: 1. Acute on chronic combined respiratory failure. At this point in time, I have discussed extensively code status. The patient desires to be full code. I attempted to discuss the likelihood of benefit of this as not being high given that she is on a higher amount of pressors, although in the future, if she did have recovery, certainly that CPR may be a benefit. Unfortunately, the patient's overall condition is tenuous at this time. Certainly, surgery feels that continued care may be warranted as the patient has had some mental status recovery and some laboratory recovery. I have changed the code status to full at this time, had attempted to discuss with the patient the possibility of having a durable power of immigration attorney or surrogate decision maker. She was not willing to designate anyone at this time. 2. Chronic obstructive pulmonary disease, very severe per previous report, recurrent admissions, recurrent intubations. Long-term prognosis appears to be poor. Would like to discuss hospice further; however, the patient was in significant pain at this time. Decision made to restart an increased dose of fentanyl to manage this. The patient was no longer wishing to discuss further options at this time. 3. Bowel perforation with septic shock. Again, management per surgical team. 4. Septic shock. Again, significantly determining overall cares at this time. We will monitor the case for the possibility of worsening, again discussed code status extensively today. <ELECTRONICALLY SIGNED> By: Thomas Solorzano DO 05/28/19 1813 [id number] Thomas Solorzano DO /nt
--- NOTE | 2019-05-28 19:06 | NUR ---
ASSESSMENTS AND INTERVENTIONS DOCCUMENTED. PATIENT WENT FOR TRACH PLACEMENT AROUND 1305. PATIENT ARRIVED BACK TO UNIT AROUND 1540. PATIENT BROUGHT BACK BY ANESTHESIA AND TRANSPORT. PATIENT RESTING. PATIENT COMPLAINING OF PAIN, ORDERS GIVEN BY DR BRUSH. GJ TUBE STUDY DONE. NO CONCERNS NOTED ON THE XRAY. TUBE FEEDING RESTARTED. PATIENT RESTING AT THIS TIME. PATIENT IS ACHIEVING GOALS EVIDENCE BY TRACH PLACEMENT.
[2019-05-29] VITALS (69 sets, daily range): BP systolic 96–129; BP diastolic 52–93
[2019-05-29 04:26] LABS: BE(vivo) 14.8 mmol/L (-2 to +3); HCO3 39.9 mmol/L (22.0-26.0); PCO2 54.4 mmHg (35.0-45.0); PO2 69.8 mmHg (80.0-100.0); pH 7.483 (7.360-7.450); sO2 94.8 % (92.0-98.0)
[2019-05-29 05:40] LABS: HEMATOCRIT 23.8 % (37.0-47.0); HEMOGLOBIN 7.4 gm/dL (12.0-15.0); MCH 28.4 pg (26.0-34.0); MCHC 31.1 g/dL (28.0-37.0); MCV 91.3 fL (80.0-100.0); RBC 2.6 mil/uL (4.20-5.00); RDW 17.7 % (10.5-14.5); WBC 8.4 thou/uL (4.0-11.0)
[2019-05-29 05:47] LABS: CALCIUM 8.6 mg/dL (8.5-10.1); CREATININE 0.8 mg/dL (0.6-1.0); POTASSIUM 3.9 mmol/L (3.5-5.1)
--- NOTE | 2019-05-29 16:53 | NUR ---
ASSESSMENTS AND INTERVENTIONS DOCCUMENTE. PATIENT RESTING THROUGH OUT SHIFT. PATIENT HAVING PAIN AND MEDICATION GIVEN. ORDERS RECIEVED FOR TRANSFER TO 3W. WOUND CARE TEAM REMOVING HAYLEY FROM MIDLINE INCISION. PATIENT IS ACHIEVING GOALS EVIDENCE BY TRACH PLACEMENT AND TRANSFERRING TO 3W. REPORT GIVEN TO NASREEN THORNTON.
--- NOTE | 2019-05-29 18:50 | NUR ---
PT transfered from ICU about 1730pm, pt is on vent with o2 40%, pt's vs and o2sat are stable, pt is tolerated tube feeding at 60ml/hr, pt can follow commands, pt denies pain and SOB AT THIS TIME.
[2019-05-30 03:39] VITALS: BP 107/64
--- NOTE | 2019-05-30 04:30 | NUR ---
ASSUMED CARE OF PATIENT AT 1900. VSS, AFEBRILE. WOUND CARE DONE PER ORDERS. ORAL SWAB FREQUENTLY. C/O PAIN AT TRACH SITE. TREATED WITH PRN MEDS. RESTING COMFORTABLY. NO S/S OF DISTRESS. PROGRESSING SLOWLY TOWARDS POC GOALS.
[2019-05-30 08:17] VITALS: BP 103/65
--- NOTE | 2019-05-30 10:22 | NUR ---
FOLLOWIING FOR DC PLANNING. CLINICAL INFO REVIEWED. PT ON PRESSURE SUPPORT VENTILATION NOW AND ST TO EVAL TODAY. TRACH PLACED 2 DAYS AGO. PT IS FROM LTC AT [facility] AND PEDRO FROM FACILITY CONFIRMS CAN RETURN WHEN FACIITY CAN MEET HER NEEDS (TRACH MATURE-30 DAYS-BREATHING ON OWN WITH STABLE RESP STATUS). PT IS IN HER MEDICARE LIFE TIME RESERVE DAYS AND HER SECONDARY MEDICAID IS INACTIVE. A NEW MEDICAID APPLICATION WAS COMPLETED WITH ASSISTANCE FROM [employer] BUT THERE IS ISSUE WITH FINDING FINANCIAL VERIFICATION FOR MEDICAID JALEESA. PT'S ONLY INCOME IS HER DISSABILITY CHECK AND PT INSISTS SHE HAS NO BANK ACCOUNT AND NO DEBIT CARD MONTHLY INCOME GOES ON. [facility] CONFIRMS THEY DO NOT RECEIVE PT'S CHECK. SPOKE WITH [facility] CEOAND DIRECTOR OF CASE MANAGEMENT 05/29/19. [facility] CAN ONLY ACC[facility]PT IF PT HAS 33 LTR MEDICARE DAYS AND FINANCIAL VERIF CAN BE OBTAINED. DISCUSSED WITH KIRBY FROM [employer] THIS AM.
[2019-05-30 12:34] LABS: BE(vivo) 12.8 mmol/L (-2 to +3); HCO3 38.1 mmol/L (22.0-26.0); PO2 72.4 mmHg (80.0-100.0); pH 7.458 (7.360-7.450)
[2019-05-30 15:53] VITALS: BP 113/72
--- NOTE | 2019-05-30 16:59 | NUR ---
Assumed care approx. 0700 this AM. CPAP trial attempted on pt by RT this afternoon; pt tolerated well per report from RT MARTA. A blood gas was obtained after trial. Pt remains on tube feed at goal rate with no residuals noted. GRETA drain removed by Dr. Hodges and student nurse today. Abdominal wound dressing changed at 1430 today (see charting for assessment details). Pt having trouble with pain management around trach site. Hydrocodone given per orders. Speech therapy evaluated patient this morning for eating and drinking. Dr. Moore said patient can have ice chips. Speech therapy said no more than ice chips at this time and will reassess patient for eating and drinking orally when pt more stable on vent and/or hopefully at a time with patient off of the vent. Pt stagnant on progressing toward plan of care goals at this time per nursing.
[2019-05-30 19:14] VITALS: BP 113/70
[2019-05-31 04:00] VITALS: BP 111/63
--- NOTE | 2019-05-31 04:12 | NUR ---
continues on assist control ventilation. she has continued discomfort at the trach site. needs a small towel under trach for comfort. continues on tubefeedings, tolerating without residual. needs encouraging with turns, she has increased pain with turning and is hesitant. dressing change completed. no concerns about discharge verbalized by pt.
[2019-05-31 07:11] LABS: ALBUMIN 1.6 g/dL (3.4-5.0); CALCIUM 8.3 mg/dL (8.5-10.1); CREATININE 0.8 mg/dL (0.6-1.0); PHOSPHORUS 3.6 mg/dL (2.5-4.9); POTASSIUM 3.6 mmol/L (3.5-5.1)
--- NOTE | 2019-05-31 07:24 | HC ---
[facility] [place] [address] CONSULTATION Name: MIGUEL COLEMAN Room #: 351-P ADM IN M.R.#: [id number] Admission: 05/08/19 Attend Phys: Marv Vasquez MD Discharge: Date of : 71 Report #: [id number] THIS REPORT FOR: //name// CC: Marv Jones DATE OF SERVICE: 05/27/2019 WOUND CARE CONSULTATION NOTE REASON FOR CONSULTATION: Nonhealing midline abdominal surgical wound with wound infection and wound dehiscence. HISTORY OF PRESENT ILLNESS: The patient is a 44-year-old woman who has been hospitalized at [facility] since 05/08/2019, critically ill in the setting of perforated viscus with feculent peritonitis, status post exploratory laparotomy, discovery of a perforated small bowel ulcer, small bowel resection and abdominal washout, wound closure and ABThera wound VAC placement. Wound has become infected with partial skin dehiscence and Wound Care is consulted. These complications have occurred in the setting of chronic COPD, tobaccoism, and obesity. PAST MEDICAL HISTORY: 1. Obesity. 2. COPD requiring home oxygen. 3. Alpha-1 antitrypsin deficiency. 4. Tobaccoism. 5. Immobility. 6. Anxiety and depression disorder. 7. Hypertension. 8. Bipolar disorder. 9. Chronic pain syndrome with narcotic use. 10. Current everyday smoker. PAST SURGICAL HISTORY: On 05/08/2019, exploratory laparotomy with discovery of perforated small bowel, small bowel resection, abdominal washout, abdominal wound closure by Dr. Aleks Hodges. MEDICATIONS: Currently include Lasix, albuterol, loperamide, meropenem, fentanyl, duloxetine, melatonin, heparin, Protonix, Zofran, acetaminophen. REVIEW OF SYSTEMS: The patient has been relatively immobile. PHYSICAL EXAMINATION: GENERAL: Shows a chronically ill-appearing obese, middle-aged woman who appears older than her age. She is sitting up in bed, alert, breathing comfortably. [address] [address] CONSULTATION Name: MIGUEL COLEMAN Room #: 351-[facility] IN M.R.#: [id number] Admission: 05/08/19 Attend Phys: Marv Vasquez MD Discharge: Date of : 71 Report #: [id number] HEENT: Mucous membranes are moist. NECK: Supple. LUNGS: Respirations are unlabored. ABDOMEN: Examination of the abdomen shows a long midline surgical incision with surgical jaime. There is disruption of the incision line in the mid portion of the wound and an open portion 5 cm x 2 cm wide. There is heavy adherent exudate grayish in color of the underlying subcutaneous tissue and fascia. Running blue monofilament fascial closure appears intact. There is extensive subcutaneous tunneling in the wound superiorly and inferiorly over most of the extent of the wound. Overlying jaime are intact. Stapled incision itself appears unhealthy with adherent exudate. Fascia appears to be intact. LABORATORY DATA: White blood count 12.3. Albumin 1.5. IMPRESSION: 1. Obesity. 2. Chronic obstructive pulmonary disease with home oxygen dependence, admitted with respiratory failure. 3. Perforated small bowel with feculent peritonitis, status post exploratory laparotomy, small bowel resection, abdominal washout. 4. Severe protein-calorie malnutrition, albumin 1.5. 5. Chronic tobaccoism, everyday smoker. 6. Nonhealing midline surgical incision with wound infection and dehiscence of the skin, fascia appears intact. PLAN: We discussed with Dr. Aleks Hodges. I am recommending that most of the jaime to be removed from the superior and inferior wound, so that there will not be subcutaneous tunneling. A more wider opening of wound will allow us to better pack the wound with quarter-strength Dakin's gauze, clean up the wound and then later consider negative pressure wound therapy with a wound VAC. It will be difficult to take care of this wound properly and pack it without more jaime being removed. We will discuss this with Dr. Hodges. Maximize nutrition with TPN if necessary. The patient is having diarrhea. <ELECTRONICALLY SIGNED> By: Arian Robin MD 05/31/19 0724 [id number] Arian Robin MD /nt
[2019-05-31 08:11] VITALS: BP 106/61
[2019-05-31 11:18] VITALS: BP 107/66
[2019-05-31 15:39] VITALS: BP 99/58
--- NOTE | 2019-05-31 16:28 | NUR ---
Assumed care approx. 0700 this AM. Pt has been struggling with pain management today. Dr. Moore notified and requested by this RN for a different regimen as pt expresses that the hydrocodone hasn't been working. Fentanyl 25 mcg Q4H PRN started. Tube feed infusing per orders at goal rate 60 ml/hr. Water flushes 150 ml Q6H. Abdominal incision dressing changed by physician this AM. No acute changes noted this shift. Will continue to monitor. Pt slowly progressing toward plan of care goals.
[2019-05-31 20:47] VITALS: BP 99/51
[2019-06-01 03:14] VITALS: BP 95/43
--- NOTE | 2019-06-01 05:20 | NUR ---
CONTINUES ON VENTILATOR, AC, RATE 16. KEEPING O2 SATS GREATER THAN 95%. REFUSED BATH TONIGHT, HAD SOME NAUSEA, NO RESIDUALS IN PEG TUBE. NO BM TONIGHT. RESTING QUIETLY. FENTANYL CONTROLLING PAIN.
[2019-06-01 07:25] VITALS: BP 95/58
[2019-06-01 11:36] VITALS: BP 93/51
[2019-06-01 16:10] VITALS: BP 104/67
--- NOTE | 2019-06-01 17:06 | NUR ---
ASSUMED CARE OF PT AT 0700. PT AOX4, IN NO ACUTE DISTRESS. COMPLAINS OF PAIN TO TRACH SITE - FINDING GOOD RELIEF WITH CURRENT MED REGIMEN. TOLERATING TUBE FEEDS. DRESSINGS CHANGED PER ORDER. REPOSITIONED Q2H AND PRN. VITALS STABLE. PT PROGRESSING TOWARD POC GOALS.
[2019-06-01 19:00] VITALS: BP 100/54
--- NOTE | 2019-06-02 03:11 | NUR ---
BATH COMPLETED, DRESSING CHANGE DONE. RESTING QUIETLY. IV FENTANYL IS EFFECTIVE FOR PAIN CONTROL. NO CONCERNS VOICED. SHE IS KEENLY ALERT AND ASKS APPROP QUESTIONS.
[2019-06-02 03:21] VITALS: BP 90/55
--- NOTE | 2019-06-02 05:40 | NUR ---
PT FEELING A LITTLE FULL. REQUESTED TO NOT TAKE THE LOPERAMIDE THIS MORNING.
[2019-06-02 07:36] LABS: ALBUMIN 1.6 g/dL (3.4-5.0); CALCIUM 8.1 mg/dL (8.5-10.1); CREATININE 0.8 mg/dL (0.6-1.0); PHOSPHORUS 4.2 mg/dL (2.5-4.9); POTASSIUM 4.3 mmol/L (3.5-5.1)
[2019-06-02 08:04] VITALS: BP 91/61
[2019-06-02 11:04] VITALS: BP 99/56
--- NOTE | 2019-06-02 14:57 | NUR ---
SPOKE WITH PT'S REDISCOVER LAYER OUT RAJENDRA BY PHONE TODAY AND SHE WAS HERE TO VISIT PT TODAY. WORKING WITH DAVID FROM [employer] ON MEDICAID FINANCIAL VERIF. [facility] CAN ACCEPT BY 06/04/19 IF FINANCIAL VERIF OBTAINED FOR MEDICAID REACTIVATION.
[2019-06-02 15:19] VITALS: BP 102/60
[2019-06-02 19:20] VITALS: BP 95/55
--- NOTE | 2019-06-02 21:06 | NUR ---
RECEIVED PT'S CARE AROUND 0735; PT. ON BED; AOX4; REQUESTED ACETAMINOPHEN WITH AM MEDICATIONS; AM MEDICATIONS GIVEN WITH ACETAMONIPHEN & IV PAIN MEDICATION; THROUGH THE DAY PT. REQUESTED PRN PAIN MEDICATION Q4H; ORDERS ON PLACE FOR CT ORDERS; TEST PERFORMED; WOUND DRESSING PERFORMED; PER DR. BRUSH PERFORMED WOUND CARE PER ORDERS; THROUGH THE DAY TURNED FROM SIDE TO SIDE; RECEIVED PT. ON ISOLATION PRECAUTIONS; PER PHYSCIAN & INFECTION CONTROL NURSE; PT. DOES NOT NEED ISOLATION; ISOLATION D/C; D/C GARCÍA; ABLE TO VOID POST D/C; ASSESSMENT CHARGED; FOLLOWING POC; PASSED ON REPORT;
[2019-06-02 23:52] VITALS: BP 95/54
[2019-06-03 03:39] VITALS: BP 107/58
--- NOTE | 2019-06-03 03:50 | NUR ---
Patient making progress towards outcome goals, Oxygenation optimal with current vent settings. Suctioning thick tannish secretions. High fall risks, fall precautions in placce. Uses call light appropriately for needs. Tolerating tube feeding. No residuals. Patient encouraged to take Hydrocodone for pain instead of Fentanyl. Some pain relief.
[2019-06-03 06:15] LABS: HEMATOCRIT 23.8 % (37.0-47.0); HEMOGLOBIN 7.6 gm/dL (12.0-15.0); MCH 28.8 pg (26.0-34.0); MCHC 31.9 g/dL (28.0-37.0); MCV 90.2 fL (80.0-100.0); PLATELET COUNT 473 thou/uL (150-400); RBC 2.64 mil/uL (4.20-5.00); WBC 9.3 thou/uL (4.0-11.0)
[2019-06-03 06:26] LABS: ALBUMIN 1.7 g/dL (3.4-5.0); CALCIUM 8.3 mg/dL (8.5-10.1); CREATININE 0.7 mg/dL (0.6-1.0); PHOSPHORUS 4.6 mg/dL (2.5-4.9); POTASSIUM 4.5 mmol/L (3.5-5.1)
[2019-06-03 07:06] LABS: ABSOLUTE NEUTROPHILS 6.2 thou/uL (1.4-8.2); ANISOCYTOSIS 1+; PLATELET ESTIMATE INCREASED; POIKILOCYTOSIS 1+
[2019-06-03 07:27] VITALS: BP 103/64
[2019-06-03 11:53] VITALS: BP 122/67
--- NOTE | 2019-06-03 14:49 | NUR ---
WOUND CARE F/U; ROUNDING WITH SANGITA WAGON WASHER. ASSESSED THE MIDLINE ABDOMEN SURGICAL DEHISCED WOUND HAS NECROSIS IN THE WOUNDBED. THIS IS THE FIRST TIME I HAVE SEEN ACESSED THIS WOUND. NO NOTICABLE ODOR. RECOMMENDATIONS; CONTINUE CURRENT POC DISCUSSED WITH STAFF
[2019-06-03 16:36] VITALS: BP 99/64
[2019-06-03 20:32] VITALS: BP 132/61
--- NOTE | 2019-06-04 03:10 | NUR ---
TARIK WORKS WELL TO CONTROL URINE OUTPUTS. SHE IS RESTING QUIETLY TONIGHT. CALLS APPROP FOR MEDICATIONS/ ASSIST. CONTINUES ON ASSIST CONTROL MECHANICAL VENTILATION. NO VISITORS HAVE CALLED OR COME TO THE UNIT, MIGUEL DENIES THAT SHE GETS VISITS FROM HER FATHER. CONTINUES ON TUBEFEEDING. SHE STATED THAT SHE IS HUNGARY, DESPITE THE TUBEFEED. CALM AND COOPERATIVE.
[2019-06-04 04:01] VITALS: BP 103/60
[2019-06-04 07:31] VITALS: BP 97/61
[2019-06-04] MEDS ORDERED: HEPARIN SO5000 UNIT/ SUBQ (08:47)
[2019-06-04] MEDS ORDERED: FENTANYL 050 MCG/1 M IV PUSH (08:52)
[2019-06-04] MEDS ORDERED: DAKIN'S473 M2 IRRIG (08:53)
[2019-06-04] MEDS ORDERED: CENTRUM MU9 MG/15 ML PER TUBE (08:54)
[2019-06-04 11:42] VITALS: BP 94/58
--- NOTE | 2019-06-04 12:25 | NUR ---
WOUND CARE F/U; ROUNDING WITH DR LONG TODAY. THE WOUND BED LOOKS HELATHY ENOUGH TO DO A WOUND VAC. THE PATIENT HAS HAD ONE BEFORE AND AGREES. RECOMMENDATION; VAC THERAPY TO START TODAY. DISCUUSSED WITH HILLARY
--- NOTE | 2019-06-04 13:04 | NUR ---
FOLLOWING FOR DC PLANNING. CLINICAL INFO REVIEWED. HAVE CONFIRMED FINANCIAL VERIF FOR SECONDARY MEDICAID APPLICATION AND UPDATED [facility] CONTACT THIS AM. CALLED AT 1310 BY [facility] DIRECTOR OF CASE MANAGEMENT MARGARITA AND UPDATED. SHE WILL UPDATED TREE CUTTER AND CALL CM WITH DECISION ON ACCEPTANCE FOR LTAC STAY. UPDATED DR. IVERSON THIS AM AND HE INDICATES PT READY FOR LTAC TRANSITION. UPDATED PT AT 1200 AND SHE IS AGREEABLE TO DC TO [facility] TODAY IF ACCEPTED. UPDATED 3W RN CHRISTIAN. WAITING SHIRT MAKER FROOM TREE CUTTER WITH DECISION ON ACCEPTANCE FOR TODAY.
[2019-06-04 13:22] LABS: BE(vivo) 7.8 mmol/L (-2 to +3); PCO2 56.6 mmHg (35.0-45.0); PO2 91.2 mmHg (80.0-100.0); pH 7.396 (7.360-7.450); sO2 96.8 % (92.0-98.0)
[2019-06-04 15:31] VITALS: BP 102/62
--- NOTE | 2019-06-04 16:36 | NUR ---
STILL WAITING ON DECISION ON ACCEPTANCE AT [facility]. CHART COPIED. DC ORDERS AND DC SUMMARY ARE COMPLETE BUT WILL NEED TO BE FAXED TO [facility] IF DISCHARGING TONIGHT. [facility] FORM COMPLETED AND FAXED. PT IS AGREEABLE TO DC TODAY IF ACCEPTED. CALLED PT'S DPOA/BROTHER RIGO MARCUS WITH UPDATE AND HE IS AGREEABLE TO DC PLAN. FAX FOR DC ORDERS: [phone] CALL [facility] TO SET UP TRANSPORT AT [phone] (THE FORM HAS BEEN FAXED ALREADY)
--- NOTE | 2019-06-04 19:11 | NUR ---
Assumed care approx. 0700 this AM. Pt was running a fever of 100.8 this morning, but came down to 98.8 after tylenol administration. Pt trialed CPAP mode and tolerated well. Pt switched back to assist control mode at shift commander change for patient to rest per RT. Pt had adequate urine output. New tube feeding bottle hung-no residuals noted from PEG tube. Pt noted to be passing flatus. Pain controlled with hydrocodone and IV fentanyl, although the patient expresses not much pain relief with hydrocodone. Abdominal dressing changed by Brendon from wound care. Pt progressing to discharge-hopefully tomorrow as it didn't go through today per case management. Pt progressing toward plan of care.
[2019-06-04 19:29] VITALS: BP 107/69
[2019-06-05 03:41] VITALS: BP 109/68
--- NOTE | 2019-06-05 04:04 | NUR ---
assist control throught the night. she keeps wanting ice chips, stating that she is hungry. the iv fentanyl controls her pain, better than the hydrocodone.continues to need to be encouraged to be turned. she is aware of the plan to possibly discharge today. careplan reviewed.
[2019-06-05 07:24] VITALS: BP 109/74
--- NOTE | 2019-06-05 14:18 | NUR ---
WOUND CARE F/U; THE WOUND WAS ASSESSED TODAY FOR A WOUND VAC PLACEMENT. THE WOUNDBED HAS APRROX. 20 SLOUGH. BEEFY RED,VIABLE TISSUE 80%. THE WOUND MEASURMENTS ARE 20 X 9 X 2.5 WITH TUNNELING AT 12:OO AT 5 CM. NO ODOR OR S/S OF INFECTION. RECOMMENDATIONS; VAC THERAPY PER DR VICENTE LONG AT 125MMHG,CONTINUOUS. DISCUSSED WITH HILLARY
--- NOTE | 2019-06-05 15:18 | NUR ---
INFORMED THIS AM [facility] HAS DECLINED PT. SPOKE WITH PT AND UPDATED HER THIS AM. SHE IS AGREEBALE TO HAVING [facility] AND [facility] RE EVAL NOW THAT MEDICAID ISSUE IS RESOLVED. REFERRAL TO EACH LTAC AND SPOKE WITH ADMISSIONS AT EACH. [facility] STILL DECLINING, [facility] WILL LET CM KNOW DECISION. PLAN TO PLACE WOUND VAC AND SPOEK WITH WOUND RN PAULO THIS AM-WILL UPDATE HIM IN AM WOUND TEAM WILL PLACE VAC TOMORROW IF NOT DC TO LTAC. UPDATE TO PT'S BROTHER AND TO [facility] IN [facility] WHERE PT RESIDES IN LTC.
[2019-06-05 16:06] VITALS: BP 11/71
[2019-06-05 19:22] VITALS: BP 110/71
[2019-06-06 03:37] VITALS: BP 110/70
[2019-06-06 07:13] VITALS: BP 102/64
[2019-06-06 15:51] VITALS: BP 106/70
[2019-06-06 19:48] VITALS: BP 108/68
--- NOTE | 2019-06-07 02:08 | NUR ---
ASSUMED CARE OF PATIENT AT 1900. VSS, AFEBRILE. PAIN MANAGEMENT STILL A CONCERN. ALTERNATING BETWEEN FENTYNAL AND HYDROCODONE. REFUSES TURNS. ABDOMINAL BINDER REPLACED BECAUSE IT WAS WAS SATURATED WITH TUBE FEED. WOUND VAC REMAINS WITH GOOD SEAL. PUREWICK CATHETER IN PLACE, WORKS MOST OF THE TIME. CHECKED FREQUENTLY FOR LEAKAGE. NO BOWEL MOVEMENT THIS SHIFT. PROGRESSING SLOWLY TOWARDS POC GOALS.
[2019-06-07 05:13] VITALS: BP 111/77
[2019-06-07 07:20] VITALS: BP 116/70
[2019-06-07 11:43] VITALS: BP 113/71
--- NOTE | 2019-06-07 12:00 | NUR ---
pt's assessment has done, pt was on vent with o2 40%, pt has changed to CPAP with o2 40% since 1030am, pt is tolerated CPAP by this time, pt's vs and o2sat are stable, pt is continuing tube feeding 60ml/hr , pain management and wound care, pt denies SOB , N/V and pain at this time. pt can floow all commands.
[2019-06-07 15:47] VITALS: BP 118/79
[2019-06-07 20:34] VITALS: BP 112/63
--- NOTE | 2019-06-08 02:14 | NUR ---
ASSESSMENT: PT REMAIN ALERT AND ORIENT TIMES THREE. VENT SETTINGS : RF=713, AC=16, FI02=40%, PEEP=5. #7.5 SHILEY. TRACH CARE PROVIDED. PRN PAIN MEDS GIVEN WITH GOOD RELIEF. PT SLEEPING WELL DURING THE NIGHT. VSS, AFEBRILE. TF IFUSING WITHOUT DIFFICULTY.EXTERNAL GARCÍA CATH PATENT, OPERATING WELL. MO BM. SLOW PROGRESS TOWARDS DC GOALS, WILL CONTNUE TO MONITOR,
[2019-06-08 05:03] VITALS: BP 114/73
[2019-06-08 07:39] VITALS: BP 136/87
[2019-06-08 15:48] VITALS: BP 120/79
--- NOTE | 2019-06-08 18:16 | NUR ---
PT is off ventilator and pt has stayed at CPAP mode with o2 40% about 8Hr, pt denies SOB , pt's vs and o2sat are satble at this time, pt is continuing pain management and abd care, pt can foloow all commands.
[2019-06-08 19:26] VITALS: BP 103/65
[2019-06-09 03:34] VITALS: BP 100/52
--- NOTE | 2019-06-09 05:58 | NUR ---
CONTINUES TO REQUEST THE PAIN MEDICATION, FENTANYL, AND HYDROCODONE. SHE IS CONSTANTLY IN PAIN. SHE DOES NOT SLEEP BUT A FEW HOURS PER NIGHT. CAREPLAN REVIWEWED.
[2019-06-09 06:08] LABS: HEMOGLOBIN 8.3 gm/dL (12.0-15.0); MCH 27.9 pg (26.0-34.0); MCHC 31.8 g/dL (28.0-37.0); MCV 87.8 fL (80.0-100.0); PLATELET COUNT 554 thou/uL (150-400); RBC 2.96 mil/uL (4.20-5.00); RDW 16.8 % (10.5-14.5); WBC 16.6 thou/uL (4.0-11.0)
[2019-06-09 06:22] LABS: CALCIUM 9.1 mg/dL (8.5-10.1); CREATININE 0.6 mg/dL (0.6-1.0); POTASSIUM 4.1 mmol/L (3.5-5.1)
[2019-06-09 08:00] VITALS: BP 119/81
[2019-06-09 08:27] LABS: ABSOLUTE NEUTROPHILS 9.8 thou/uL (1.4-8.2); METAMYELOCYTES 7 %; MYELOCYTES 6 %
[2019-06-09 08:28] LABS: ANISOCYTOSIS 1+
[2019-06-09 12:00] VITALS: BP 117/80
[2019-06-09 15:00] VITALS: BP 117/85
--- NOTE | 2019-06-09 15:48 | NUR ---
WOUND CARE F/U; THE WOUND BED LOOKS MUCH IMPROVED WITH BEEFY RED TISSUE AND SOME GRANULATION BUDS SEEN. NO S/S OF INFECTION. RECOMMENDSATION ; CONTINUE VAC THERAPY DISCUSSED WITH RN
--- NOTE | 2019-06-09 19:19 | NUR ---
PT is continuing ventilator AC mode with o2 40%, pt's vs and o2sat are stable, pt has medications for ABD wound pain , pt's abd wound dressing has changed by wound nurse, pt is tolerate tube feeding at 60ml/hr,pt denies N/V .
[2019-06-09 19:38] VITALS: BP 121/81
--- NOTE | 2019-06-10 04:22 | NUR ---
CONTINUES ON AC RATE OF 16, 40% FIO2 TONIGHT. CONTINUES TO ASK FOR THE IV AND PT PAIN MEDICATION FREQUENTLY. SHE STATED THAT SHE HAS HAD MUCH DIFFICULTY GETTING TO SLEEP AT NIGHT. SHE HAS CONTINUED PAIN TO HER ABDOMEN, STATING THAT IT IS SHARP AND CONSTANT. SHE IS AWAITING A TRANSFER TO A FACILITY SOON, AND SHE IS AWARE OF THE PLAN. NO DISCHARGE CONCERNS VOICED.
[2019-06-10 04:53] VITALS: BP 110/69
[2019-06-10 07:34] VITALS: BP 123/79
--- NOTE | 2019-06-10 10:37 | NUR ---
FOLLOWING FOR DC PLANNING. DISCUSSED WITH DR. SMITH. [facility] MEDICALLY ACCEPTS PT BUT CURRENTLY FULL WITH WAITING LIST. REQUESTED CLINCIAL UPDATED FAXED BY DC PHOTOVOLTAIC SUBCONTRACTOR TODAY. UPDATE TO PT'S BROTHER /DPOA RIGO ON 06/09/19. HOSPITALIST, WOUND CARE AND PULM UPDATED ON DC PLANNING. CHECKING WITH [facility] DAILY FOR BED AVAILABILITY. [facility]OTH [facility] HAVE DECLINED PT FOR ADMIT R/T LTR MEDICARE DAYS AND MEDICAID PENDING SECONDARY INSURANCE.
[2019-06-10 11:18] VITALS: BP 115/70
--- NOTE | 2019-06-10 14:23 | NUR ---
FAXED CLINICAL UPDATE TO [facility] SR SPOKE WITH YONATAN IN ADM SHE RECEIVED UPDATE.
--- NOTE | 2019-06-10 15:00 | NUR ---
FAXED CLINICAL UPDATE TO [facility] SR SPOKE WITH YONATAN IN ADM SHE RECEIVED UPDATE AND WILL FOLLOW.
[2019-06-10 15:09] VITALS: BP 104/69
--- NOTE | 2019-06-10 16:11 | NUR ---
Assumed care approx. 0700 this AM. Patient taken off of vent by RT and placed on trach shield this morning. Pt initially had an anxiety attack, expressing that she was having SOB/troube breathing. O2 sat was 100% & respirations of 20. Dr. Crabtree called about the situation and said he doesn't want to order meds for anxiety at this time as the pt just needs reassured that she is okay and can do this without the vent. Dr. Crabtree said it would be okay for the patient to be placed back on the vent if work of breathing becomes apparent, but the patient has tolerated well after reassurance so far this shift. Abdominal pain and neck pain treated with ordered narcotics. Tube feed infusing per orders. Wound vac intact. No acute changes noted this shift. Pt progressing toward plan of care goals.
[2019-06-10 19:34] VITALS: BP 113/78
[2019-06-11 04:12] VITALS: BP 105/73
--- NOTE | 2019-06-11 06:29 | NUR ---
ASSUMED CARE AT 1900. PT ASKED FOR PAIN MEDS MULTIPLE TIMES THROUGHOUT THE NIGHT, ALTERNATED BETWEEN NORCO AND FENTANYL. ASKED TO BE SUCTIONED THROUGHOUT THE NIGHT; THICK, WHITE SECRETIONS OUT; PLACED ON VENT OVERNIGHT PER DR. SMITH, RT WILL SWITCH BACK TO TRACH SHIELD THIS AM. REPOSITIONED MULTIPLE TIMES AT PT REQUEST. HAD A LOOSE STOOL OVERNIGHT; CHANGED EXTERNAL CATH SUCTION IT HAD LEAKED MULTIPLE TIMES. TUBE FEEDING INFUSING, NO RESIDUAL NOTED. NO OTHER CONCERNS, WILL CONTINUE TO MONITOR.
[2019-06-11 07:57] VITALS: BP 109/64
[2019-06-11 12:08] VITALS: BP 114/89
--- NOTE | 2019-06-11 12:27 | NUR ---
WOUND CARE CONSULT; ROUNDING WITH DR LONG AND GERARDO RN, BSN TODAY. ASSESSMENT OF THE ABDOMINAL WOUND; THE WOUND MEANSUREMENTS ARE 17 X 6 X1.5 WITH A TUNNEL AT 12:00. THE NECROTIC AREAS IN THIS WOUND ARE ABOUT 5% EST. IMPROVING WITH EACH DRESSING CHANGE. 95% OF THE WOUND BED IS BEEFY HEALTHY TISSUE. RECOMMENDATIONS; COINTINUE CURRENT POC RN IS PRESENT
[2019-06-11 15:33] VITALS: BP 112/75
--- NOTE | 2019-06-11 16:07 | NUR ---
FOLLOWING FOR DC PLANNING. CLINICAL INFO REVIEWED. NAI HAS DECLINIED FOR LTAC ADMIT. PT, HER BROTHER/DPOA RIGO MARCUS., AND HER REDISCOVER ORTHOPEDIC PODIATRIST KAMI UPDATED TODAY. TRACH PLACED 05/28/19 AND WILL BE 30 DAYS OLD 06/27/19. DC PLAN AT PRESENT IS TO WORK TO HAVE PT MEDICALLY READY TO RETURN TO HER LTC FACILITY, [facility]. PEDRO FROM FACILITY ADMISSIONS UPDATED TODAY. PT WILL NEED TO BE BREATHING ON HER OWN. UPDATE TO DR. RAMOS, DR. ROQUE, CM DIRECTOR AND 3W PERSONAL ATTENDANT NUMBERER AND WIRER WHO WILL FOLLOW FOR DC PLANNING NOW.
--- NOTE | 2019-06-11 16:59 | NUR ---
Pt alert and oriented, complained of post abdominal pain surgey. Pt medicated per order. Wound vac in place. Call light in reach. Bed at lowest level with alarm on. Will continue to monitor
[2019-06-11 19:21] VITALS: BP 109/76
[2019-06-12 04:13] VITALS: BP 107/71
--- NOTE | 2019-06-12 05:01 | NUR ---
ASSUMED CARE AT 1900. PT REPORTS TOLERATING TRACH SHIELD WELL, DECLINED SWITCHING OVER TO VENT OVERNIGHT. CALLED TO BE SUCTIONED MULTIPLE TIMES, HAD THICK, WHITE MUCOUS OUT. REPORTED PAIN IN ABD AND TRACH SITE; PER RESPIRATORY, SHE NEEDS TO HAVE THE TRACH SUTURES REMOVED. PT REPORTED NAUSEA AFER RECEIVING HER FIRST WATER FLUSH THIS SHIFT; GAVE A DOSE OF IV ZOFRAN FOR RELIEF. PT ALSO REPORTED SOME NUMBNESS IN HER RIGHT THUMB AND INDEX FINGER AND INTO THE WRIST; IV IN THE RIGHT LATERAL WRIST WAS WRAPPED LOOSELY WITH KOBAN, REMOVED THIS AND FOUND PT TO HAVE DARK, SLOUGHED AREA AT THE MEDIAL WRIST, SHE NOTED THIS AREA WAS TENDER. WOUND PHOTO OF THE WRIST PLACED IN CHART. NO OTHER CONCERNS, WILL CONTINUE TO MONITOR.
[2019-06-12 07:30] VITALS: BP 109/69
[2019-06-12 11:41] VITALS: BP 114/80
--- NOTE | 2019-06-12 13:39 | NUR ---
SW reviewed chart and spoke with nursing and attending physician. Pt doing cpap trials. Pt with new trach in place. [facility] once trach has been in place for 30 days. Anticipated discharge planned for 06/27. program planner to send updates to [facility] tomorrow. [facility]H is following to assist as needed with discharge planning.
--- NOTE | 2019-06-12 18:47 | NUR ---
PT is off vent at daytime, she is on trach o2 35%, pt's vs and o2sat are stable , pt denies SOB , PT is continuing ABD wound care , pt is tolerate tube feeding at 60ml/he, pt 's abd wound pain can control by medications, RN has reported to surgical DR about pt has sultures at trach for 2weeks, surgical dr will see pt tomorrow.
[2019-06-12 19:25] VITALS: BP 108/63
[2019-06-13 04:20] VITALS: BP 113/70
--- NOTE | 2019-06-13 05:58 | NUR ---
ASSUMED CARE AT 1900. AFTER RESPIRATORY DID TRACH CARE, PT BECAME AGITATED AND HR SPIKED INTO 160-170'S; PT CLEARED A MUCOUS PLUG, MANUALLY BAGGED PT UNTIL BREATHING RETURNED TO A MORE NORMAL RATE AND WAS ABLE TO TOLERATE TRACH SHIELD AGAIN. CONTINUED TO HAVE THICK, WHITE SECRETIONS FROM TRACH. WOUND VAC INTACT. HAD TWO BM'S OVERNIGHT, ONE MEDIUM AND ONE VERY LARGE; EXTERNAL CATHETER DID NOT WORK WELL OVERNIGHT AND WAS UNMEASURABLE. PT HAS VERY SMALL AREA OF EXCORIATION IN VAGINAL FOLDS FROM INCONT AND WIPING, APPLIED BARRIER CREAM. NO OTHER CONCERNS, WILL CONTINUE TO MONITOR.
[2019-06-13 07:18] VITALS: BP 100/75
--- NOTE | 2019-06-13 15:19 | NUR ---
SW reviewed chart and spoke with nursing and attending physician. Pt continues cpap trials. No weekend discharge planned. office workforce planner to fax clinical updates to [facility] for review. Anticipate pt will be ready for discharge on 06/27 once trach has been in place fro 30 days. ISH is following to assist as needed with discharge planning.
[2019-06-13 19:24] VITALS: BP 121/88
--- NOTE | 2019-06-13 19:58 | NUR ---
pt is tolerate t-tube with trach o2 35%, but need more suction from trach, pt is contiuning ABD wound care and pain management, pt's vs and o2sat are stable . pt is tolerate tube feeding at 60ml/hr.
[2019-06-14 03:32] VITALS: BP 108/76
--- NOTE | 2019-06-14 04:39 | NUR ---
patient is progressing slowly in her care plan. vital signs stable with patient having no complaints of nausea. patient did complain frequently of pain and was treated appropriately through medication and non pharmacological intervention. fully oriented but highly anxious, patient is able to call appropriately for needs. breathing stable on t tube throughout shift. patient required frequent suction and requested breathing treatments regularly. patient would not allow staff to turn most of the shift. tube feed tolerated well with minimal residual. continue plan of care.
[2019-06-14 05:56] LABS: CALCIUM 9.3 mg/dL (8.5-10.1); CREATININE 0.6 mg/dL (0.6-1.0); POTASSIUM 3.6 mmol/L (3.5-5.1)
[2019-06-14 07:12] VITALS: BP 113/74
[2019-06-14 11:17] VITALS: BP 109/68
[2019-06-14 15:12] VITALS: BP 110/79
--- NOTE | 2019-06-14 17:19 | NUR ---
ASSUMED CARE OF PT AT 0700. PT ALERT AND ORIENTED IN NO ACUTE DISTRESS. REPORTS GENERALIZED PAIN. GENO TF AT GOAL RATE - NO SIG RESIDUALS. REQUIRES OCCASIONAL SUCTIONING. REFUSING SOME TURNS. INCONTINENT OF URINE - EXT GARCÍA CATH IN PLACE. VITALS STABLE. NO OTHER CHANGES TO REPORT.
[2019-06-14 21:42] VITALS: BP 119/73
--- NOTE | 2019-06-15 03:35 | NUR ---
PATIENT IS PROGRESSING SLOWLY IN HER CARE PLAN. VITAL SIGNS STABLE WITH PATIENT HAVING FREQUENT COMPLAINTS OF ABDOMINAL PAIN AND COMPLAINED ONCE OF NAUSEA. MOSTLY ORIENTED BUT ANXIOUS, PATIENT IS ABLE TO CALL FOR NEEDS. BREATHING STABLE ON T TUBE EVIDENCED BY ASSESSMENT AND CONTINUOUS SATURATION MONITOR. FREQUENT SUCTION PROVIDED. WOUND VAC INTACT AND FUNCTIONING. TUBE FEED PER ORDER WITH PATIENT TOLERATING WELL WITH NO RESIDUAL. CONTINUE PLAN OF CARE.
[2019-06-15 03:44] VITALS: BP 94/68
[2019-06-15 07:23] LABS: MCH 27.3 pg (26.0-34.0); MCHC 31.1 g/dL (28.0-37.0); MCV 87.7 fL (80.0-100.0); PLATELET COUNT 466 thou/uL (150-400); RBC 3.31 mil/uL (4.20-5.00); WBC 12.8 thou/uL (4.0-11.0)
[2019-06-15 07:34] VITALS: BP 113/73
[2019-06-15 07:42] LABS: ABSOLUTE NEUTROPHILS 9.2 thou/uL (1.4-8.2); PLATELET ESTIMATE INCREASED
[2019-06-15 11:11] VITALS: BP 105/64
[2019-06-15 15:20] VITALS: BP 103/71
--- NOTE | 2019-06-15 17:18 | NUR ---
ASSUMED CARE OF PT AT 0700. PT ALERT AND ORIENTED IN NO ACUTE DISTRESS, REGULARLY ASKING FOR ANALGESICS. YELLOW DISCHARGE COMING FROM PG TUBE SITE - OPTIFOAM AG APPLIED. INCONTINENT OF URINE - EXT GARCÍA CATH IN PLACE. CLEANED PRN. REFUSING WEDGE. OCCASIONAL SUCTIONING. TF RUNNING AT GOAL RATE W/O RESIDUAL. NO OTHER CHANGES TO REPORT.
[2019-06-15 20:07] VITALS: BP 106/64
[2019-06-16 04:59] VITALS: BP 111/74
[2019-06-16 07:28] VITALS: BP 122/82
--- NOTE | 2019-06-16 09:36 | NUR ---
ASSUMED PATIENT CARE AROUND 1845. VITAL SIGNS STABLE. PATIENT HAD MULTIPLE COMPLAINTS OF PAIN WHICH WERE TREATED. PATIENT ALSO HAD COMPLAINTS OF NAUSEA BUT BECAME UPSET WHEN NURSE STOPPED PROVIDING ICE CHIPS DUE TO PAIN AND NAUSEA. MOSTLY ORIENTED, PATIENT IS ABLE TO CALL FOR NEEDS AND COMMUNICATE EFFECTIVELY. BREATHING STABLE ON OXYGEN EVIDENCED BY ASSESSMENT AND SPOT OXYGENATION CHECKS. PATIENT HAS LESS SPUTUM. FREQUENT BOUTS OF INCONTINENCE. WOUND VAC STILL IN PLACE AND FUNCTIONING.
--- NOTE | 2019-06-16 12:03 | NUR ---
0850 pt alert and oriented X4, assessment completed. pt on tube feeding with minimal residual. Abdominal wound clean, dry and intact connected to wound vac. pt medicated per order, states pain in abdomen 12/14. Call lgith in reach, bed at lowest level with alarm on. Denies any needs at the moment.
[2019-06-16 12:08] VITALS: BP 114/74
[2019-06-16 14:58] VITALS: BP 115/74
--- NOTE | 2019-06-16 15:59 | NUR ---
WOUND CARE FOLLOW UP; THE WOUND HAS DRAMATICALLY IMPROVED. THE WOUND BED CONTINUALLY HAS LESS NECROSIS TO LESS THAN 5% TODAY. HEALTHY BEEFY RED TISSUE REAMINS. RECOMMENDATIONS; CONTINUE POC DISCUSSED WITH RN
--- NOTE | 2019-06-16 16:22 | NUR ---
SW reviewed chart and spoke with nursing and attending physician. Pt is tolerating O2 via trach. SW met with pt at bedside to discuss eventual discharge plan back to [facility] when trach has been established for 30-days. Discharge anticipated for 06/27. SW is following to assist as needed with discharge planning.
[2019-06-16 19:20] VITALS: BP 109/77
[2019-06-17 03:24] VITALS: BP 108/72
--- NOTE | 2019-06-17 06:11 | NUR ---
FOLLOWING POC WITH PAIN MANAGEMENT, PEG TUBE FEEDING/FLUSHES, AND SUCTIONING. PT REQUEST FREQUENT SUCTIONING. PT REFUSED TO HAVE HEELS ELEVATED WITH PILLOW. NEW PUREWICK IN PLACE AT 0500. FALL PRECAUTIONS OBSERVED.
[2019-06-17 07:32] VITALS: BP 125/74
--- NOTE | 2019-06-17 10:32 | NUR ---
Pt continues to lose wt rapidly >55 lb likely due to combination of diuresis and true wt loss. Nutrition needs reassessed and recommend increase tube feed rate to new goal of 70ml/hr. Please weigh pt daily and record.
[2019-06-17 11:43] VITALS: BP 121/78
--- NOTE | 2019-06-17 12:01 | NUR ---
pt care taken over at 0700, pt alert and oriented X4. Denies any pain and symptoms. wound vac in place. pt assessment and vitals completed. Call light and table in reach and bed at lowest level.
--- NOTE | 2019-06-17 14:36 | NUR ---
SW reviewed chart and spoke with nursing and attending physician. Pt has tolerated trach shield for the past several days. Therapy working with pt. SW updated [facility] liaison. Anticipated discharge back to [facility] is 06/27. ISH is following to assist as needed with discharge planning.
[2019-06-17 16:17] VITALS: BP 107/75
[2019-06-17 19:15] VITALS: BP 122/71
[2019-06-18 03:38] VITALS: BP 110/75
--- NOTE | 2019-06-18 07:34 | NUR ---
0700 recieved report from Jono HTORNTON patient resting quietly in bed call light within reach.
--- NOTE | 2019-06-18 08:03 | NUR ---
ASSUMED PATIENT CARE AT 1845. VITAL SIGNS STABLE. PATIENT HAD MANY COMPLAINTS OF PAIN AND ONE COMPLAINT OF NAUSEA WHICH WAS TREATED THROUGH MEDICATIONS. FULLY ORIENTED BUT ANXIOUS, PATIENT IS ABLE TO CALL FOR NEEDS. BREATHING STABLE THROUGH T TUBE EVIDENCED BY ASSESSMENT AND SPOT OXYGENATION CHECKS. TUBE FEED TOLERATED WELL WITH NO RESIDUAL.
[2019-06-18 08:12] VITALS: BP 121/69
--- NOTE | 2019-06-18 11:27 | NUR ---
WOUND CARE F/U; THE WOUND VOLUME IS DECREASING RAPIDLY. .5% SLOUGH REMAINS IN WOUND BED, VIABLE, RED WOUNDBED TISSUE PRESENT. NO S/S OF INFECTION. PATIENT TOLERATED THE DRESSING CHANGE WELL. RECOMMEDNATIONS; CONTINUE CURRENT POC. RN PRESENT
[2019-06-18 12:14] VITALS: BP 113/73
--- NOTE | 2019-06-18 13:57 | NUR ---
1230 PATIENT REQUESTING FENT. FOR ABDOMEN AND NECK PAIN SHE STATES HER NECK HURTS WORSE THEN HER ABDOMEN. RT IS AT BEDSIDE DOING A BREATHING TX AND TRACH CARE. FENT 25MCG GIVEN AT THIS TIME.
--- NOTE | 2019-06-18 14:38 | NUR ---
SW reviewed chart and spoke with nursing and attending physician. Pt is slowly progressing towards goals for discharge. Update provided to [facility] Nila grimaldo. Anticipate discharge to [facility] on 06/27. ISH is following to assist as needed with discharge planning.
--- NOTE | 2019-06-18 14:55 | NUR ---
1410 patient requested to be moved up in bed at this time a partial linen change was done /c a gown change. When this was complete patient requested a Hydrocodone for pain to her left abdomen. 1428 a Hydrocodone was given per peg tube. Patient is sleeping at this time.
[2019-06-18 15:58] VITALS: BP 118/76
--- NOTE | 2019-06-18 17:17 | NUR ---
patient requested fent. at this time for midline abdomen pain which she rated at a 7. She would like for me to call her brother José Luis Neil to come visit her.I called and left A message for him on her behalf.
[2019-06-18 19:29] VITALS: BP 121/87
[2019-06-19 03:21] VITALS: BP 90/55
[2019-06-19 03:31] VITALS: BP 118/82
[2019-06-19 07:28] VITALS: BP 111/79
[2019-06-19 11:26] VITALS: BP 109/70
[2019-06-19 15:21] VITALS: BP 114/77
[2019-06-19 19:09] VITALS: BP 121/84
--- NOTE | 2019-06-19 19:31 | NUR ---
Pt care taken over at 0700, alert and oriented X4. Assessment and vitals signs completed. wound vac in place, feeding tube running at 60 per order. Pt denies any needs at the ju, call light in place and bed alarm on. Will cpontinue to monitor.
[2019-06-20 04:30] VITALS: BP 103/73
--- NOTE | 2019-06-20 07:36 | NUR ---
ASSUMED PATIENT CARE AT 1845. VITAL SIGNS STABLE WITH PATIENT HAVING NO COMPLAINTS OF NAUSEA. PATIENT DID COMPLAIN OF PAIN IN ABDOMEN FREQUENTLY AND WAS TREATED WITH MEDICATION AND NON PHARMACOLOGICAL INTERVENTION. BREATHING STABLE EVIDENCED BY ASSESSMENT AND SPOT OXYGENATION CHECKS. CONTINUE PLAN OF CARE.
[2019-06-20 07:45] VITALS: BP 110/76
--- NOTE | 2019-06-20 10:13 | NUR ---
RD Tube Feeding Recommendations: Recommend continuing PEG feeds until pt able to consistently eat 2/3-75% of meals for several days in a row. Once PO intake improved, consider switching to continuous night feeds to meet ~50% energy needs. Would suggest Vital AF 1.2 at 85 ml/hr x 10 hrs from [id number] to meet 50% needs, allow freedom for meals during day to prevent extra volume/fullness.
--- NOTE | 2019-06-20 12:33 | NUR ---
WOUND CARE NOTE ROUNDING W/ DR LONG AND GERARDO RN, TOLERATED NPWT CHANGE WELL, LESS PAIN, WOUND BEEFY RED, SCANT BLEEDING, TOP OF WOUND 12:00 TUNNELS 3.5 CM, AREA PACKED W/ BLACK GRANUFOAM, WOUND MEASURES 16.5CM X 4.2CM LARGEST WIDTH AT BASE, .9CM DEPTH, HEALING, EXUDERM LP APPLIED TO WOUND EDGES, BLACK GRANUFOAM TO WOUND, NO S/S INFECTION, GOOD SEAL NOTED CONT SUCTION 125MMHG FOREST MANAGEMENT TEACHER PRESENT AND AWARE, CONT CURRENT POC
--- NOTE | 2019-06-20 14:38 | NUR ---
SW reviewed chart and spoke with nursing and attending physician. Pt is progressing towards goals for discharge. Discharge back to [facility] is anticipated for 06/27. SW is following to assist as needed with discharge planning.
[2019-06-20 15:16] VITALS: BP 120/83
--- NOTE | 2019-06-20 19:46 | NUR ---
pt is A&0X3, PT can follow commands, pt is continuing T-tube, o2 35% at trach , pt is continuing wound care and pain management, pt is tolerated soft diet, pt starts tube feeding only 8pm-6am. pt's vs and o2sat are stable.
[2019-06-20 19:50] VITALS: BP 117/81
--- NOTE | 2019-06-21 00:33 | NUR ---
Patient resistant taking Hydrocodone , states she has 1 more week to get Fentanyl. C/O trach site and abdominal incision pain. Long discussion with patient about transitioning to pain medication she could be discharged with, needs time to adjust. Refused anymore Hydrocodone states it does not work.
--- NOTE | 2019-06-21 03:18 | NUR ---
Patient has progressed towards discharge goals. Oxygenation optimal with 35% O2 per TTube. Tolerating tube feedings at night and solid food with thin liquids well. Uses call light appropriately for needs. Has been placed, awaiting eligibility. Patient encouraged again try Hydrocodone for pain, pt refuses.
[2019-06-21 04:17] VITALS: BP 123/76
[2019-06-21 07:14] VITALS: BP 146/125
[2019-06-21 10:38] LABS: HEMOGLOBIN 9.4 gm/dL (12.0-15.0)
[2019-06-21 10:40] LABS: HEMATOCRIT 29.6 % (37.0-47.0); MCHC 31.8 g/dL (28.0-37.0); MCV 88.1 fL (80.0-100.0); RBC 3.36 mil/uL (4.20-5.00); RDW 18.3 % (10.5-14.5); WBC 13.3 thou/uL (4.0-11.0)
[2019-06-21 11:08] LABS: CALCIUM 9.4 mg/dL (8.5-10.1); CREATININE 0.6 mg/dL (0.6-1.0); MAGNESIUM 1.7 mg/dL (1.8-2.4); POTASSIUM 4.4 mmol/L (3.5-5.1)
[2019-06-21 11:23] VITALS: BP 112/76
[2019-06-21 15:05] VITALS: BP 109/80
--- NOTE | 2019-06-21 18:13 | NUR ---
pt is A&OX3, PT can follow all commands, pt is on T-tube , o2 35% at trach, pt's vs and o2sat are stable , but pt needs suction from trach, pt is tolerate soft diet, pt is continuing pain management and wound care.
[2019-06-21 19:35] VITALS: BP 114/81
--- NOTE | 2019-06-21 23:27 | NUR ---
PT WATCHING TV IN BED. TRACH AND TTUBE INTACT. LUNGS COARSE. ABD DISTENDED. PALE SKIN TONE. ABD WVAC INTACT. R WRIST FOAM INTACT. CREAM TO R FOREARM RASH. STARTED MAIRA TFEEDING TO PEG TUBE.SLIV. PT COMPLIANT WITH MEDS. PT ASKED FOR TWO DIET SODAS AND CRACKERS. PT FREQUENTLY CALLS OUT FOR SUCTIONING AND REPOSITIONING. PT HAS EXT FEMALE CATHETER. PRN PAIN MED PROVIDED. PT REPOSITIONS SELF.
[2019-06-22 03:34] VITALS: BP 115/81
[2019-06-22 07:19] VITALS: BP 110/71
[2019-06-22 11:17] VITALS: BP 115/80
[2019-06-22 15:02] VITALS: BP 115/80
--- NOTE | 2019-06-22 19:55 | NUR ---
PTis A&OX3, PT is continuing t-tube, trach 02 35%, pt's vs and o2sat are stable, but pt has vimitted after pt eats brekfast, RN has reported to DR , new order npo and chest x-ray and raphael, RN has called dr to report results, pt starts clear liquid diet, pt is tolerate, no N/V at rest of day shift.
[2019-06-22 20:15] VITALS: BP 116/82
[2019-06-23 03:34] VITALS: BP 97/76
--- NOTE | 2019-06-23 04:29 | NUR ---
PATIENT IS ADVANCING SLOWLY IN HER CARE PLAN. VITAL SIGNS STABLE WITH PATIENT HAVING NO COMPLAINTS OF NAUSEA. PATIENT DID COMPLAIN FREQUENTLY OF ABDOMINAL PAIN WHICH WAS TREATED EFFECTIVELY THROUGH MEDICATIONS. FULLY ORIENTED PATIENT IS ABLE TO CALL FOR NEEDS. BREATHING STABLE ON OXYGEN EVIDENCED BY ASSESSMENT AND CONTINUOUS SATURATION MONITOR. CONTINUE PLAN OF CARE.
[2019-06-23 08:34] VITALS: BP 132/82
[2019-06-23 11:49] VITALS: BP 113/72
--- NOTE | 2019-06-23 15:19 | NUR ---
Nutrition update: RN stopped RD to discuss pertinent nutrition updates on this pt. Pt has been on Vital AF 1.2 tube feeds for a long time. Beginning 06/20, we transitioned pt to nighttime feeds only from 8PM-6AM at 60 ml/hr as pt was eating so well. RN described pt vomiting up food on 2 separate occasions. Vomiting coinciding with after meal intakes only. Has been made strict NPO. Awaiting GI consult for further input. TF off/held at this time too. Will f/up tomorrow, 06/24, to learn of the nutrition plan per GI discretion.
--- NOTE | 2019-06-23 15:20 | NUR ---
DISCHARGE PLANNING. ANTICIPATED DISCHARGE BACK TO [facility] SUNDAY. PATIENT CLINICALS FAXED TO [facility] LIAISON. CALL PLACED TO [facility] TO NOTIFY. ACKNOWLEDGED UNDERSTANDING. UNIT SW AWARE.
[2019-06-23 15:37] VITALS: BP 115/79
--- NOTE | 2019-06-23 16:23 | NUR ---
SW reviewed chart and spoke with nursing and attending physician. Pt is progressing towards goals for discharge. Pt is NPO due to episode of nausea/vomiting. Pt off the unit having test. Discharge back to [facility] is anticipated for Sunday, 06/27, as pt's trach will be established for 30 days, on that day. wedding planner to fax clinical/therapy updates to [facility] for review. ISH is following to assist as needed with discharge planning.
--- NOTE | 2019-06-23 19:29 | NUR ---
pt is A&OX3, PT is continuing T-tube , trach o2 35%, pt's vs and o2sat are stable, but pt had vomiting again after breakfast, RN has reported to DR , new order , keep NPO, GI consult and ABD CT , RN has called GI dr to report abnormal CT scan result, new order, continuing keeping NPO, starting tube feeding at 60ml/hr , hold tube feeding after MN for EGD at 06/24/19, pt has signed consent .pt is tolerated tube feeding now, no N/V BY THIS TIME
[2019-06-23 19:32] VITALS: BP 96/71
[2019-06-24 05:01] VITALS: BP 102/60
[2019-06-24 05:38] LABS: HEMOGLOBIN 8.8 gm/dL (12.0-15.0); MCH 28.9 pg (26.0-34.0); MCHC 32.5 g/dL (28.0-37.0); MCV 88.8 fL (80.0-100.0); RBC 3.04 mil/uL (4.20-5.00); RDW 18.7 % (10.5-14.5); WBC 7.2 thou/uL (4.0-11.0)
[2019-06-24 06:03] LABS: ALBUMIN 2.5 g/dL (3.4-5.0); CALCIUM 9.3 mg/dL (8.5-10.1); CREATININE 0.6 mg/dL (0.6-1.0); POTASSIUM 3.4 mmol/L (3.5-5.1)
[2019-06-24 07:40] VITALS: BP 100/64
[2019-06-24 11:09] VITALS: BP 108/74
--- NOTE | 2019-06-24 12:20 | NUR ---
taken to GI lab at 1205 for planned EGD. taken per bed with 02 after suctioning and breathing tx given per RT.
--- NOTE | 2019-06-24 14:22 | NUR ---
ISH reviewed chart and spoke with nursing and attending physician. Pt to have EGD today. SW left voice message for pt's brother, José Luis, to provide update and notify of anticipated discharge for 06/27. ISH also updated [facility] at [facility]. [facility] is following to assist as needed with discharge planning.
[2019-06-24 14:31] VITALS: BP 106/72
[2019-06-24 19:45] VITALS: BP 113/81
[2019-06-25 03:11] VITALS: BP 116/75
--- NOTE | 2019-06-25 04:07 | NUR ---
Slept intermittently during the night. Medicated for pain with some relief. Trach site pain is more than abdominal incision pain per pt. Loose cough , suction prn. Maintaining O2 sat in the mid to upper 90's on trach shield at 35%. Repositions self on bed. Tolerating tube feeding well. C/o nausea x1 and zofran given with good relief. No further nausea and continues to request for beef broth. Abdominal incision with wound vac.Voiding per bedpan. Making progress towards care plan goals.
[2019-06-25 08:17] VITALS: BP 105/70
--- NOTE | 2019-06-25 12:54 | NUR ---
WHEN RT ENTER THE ROOM PATIENT WAS COMPLAINING OF SOB. PATIENT TRACH WAS FULL OF THINK WHITE, RN ASKED IF PATIENT COULD BE PLACED ON A TRACH SHIELD ADIVE NURSE ABOUT PATIENT AND A POSSIBLE ASPIRATION OF PATEINT PER RN PATIENT JUST HAS A STRONG COUGH
--- NOTE | 2019-06-25 13:09 | NUR ---
RD RECOMMENDATIONS: 1) Recommend smaller more frequent meals/snacks 5-6x daily given hx gastric bypass surgery to prevent overeating and minimize N/V symptoms. 2) If pt able to eat at least 2/3 to 75% of meals over the next 1-2 days, would consider stopping TF altogether to prevent extra volume/fullness. 3) Monitor weights closely in the first few weeks if pt able to stop TFs to ensure weight maintenance.
--- NOTE | 2019-06-25 13:40 | NUR ---
WOUND CARE F/U; FOLLOW UP ASSESSMENT WITH WOUND VAC DRESSING CHANGE. THE WOUND CONTINUES TO IMPROVE. BEEFY RED TISSUE NO S/S OF INFECTION, DECREASED WOUND SIZE. RECOMMENDATION; CONTINUE VAC THERAPY RN PRESENT
[2019-06-25 15:11] VITALS: BP 118/81
--- NOTE | 2019-06-25 17:25 | NUR ---
ISH reviewed chart and spoke with nursing and attending physician. Pt is progressing towards goals for discharge back to [facility]. [facility] updated [facility] liaison who states that pt will return as skilled. ISH left voice message for pt's brother, José Luis, to provide update. ISH is following to assist as needed with discharge planning.
[2019-06-25 20:31] VITALS: BP 107/79
--- NOTE | 2019-06-26 02:53 | NUR ---
Patient is progressing towards outcome goals. Oxygenation optimal with 35% oxygen, sats 98 to 100% Refused Hydrocodone offered , states it does not work. Prefers Fentanyl. Calls out appropriately to void and bowel movement. Tube feeding infusing. Constantly asking for soda, beef broth, crackers and consuming 100% Cautioned regarding possible nausea and abdominal pain recurring. Main c/o is trach site pain but is refusing viscous lidocaine offered.
[2019-06-26 04:34] VITALS: BP 111/76
[2019-06-26 07:18] VITALS: BP 117/75
[2019-06-26 11:50] LABS: ABSOLUTE NEUTROPHILS 5.9 thou/uL (1.4-8.2); BASOPHILS 0.5 % (0.0-2.0); EOSINOPHILS 2.6 % (0.0-3.0); HEMATOCRIT 28.2 % (37.0-47.0); HEMOGLOBIN 9.1 gm/dL (12.0-15.0); LYMPHOCYTES 23.1 % (24.0-44.0); MCH 28.5 pg (26.0-34.0); MCHC 32.2 g/dL (28.0-37.0); MCV 88.4 fL (80.0-100.0); MONOCYTES 6.6 % (1.0-8.0); PLATELET COUNT 385 thou/uL (150-400); POLYS 67.2 % (36.0-66.0); RBC 3.19 mil/uL (4.20-5.00); RDW 18.3 % (10.5-14.5); WBC 8.8 thou/uL (4.0-11.0)
[2019-06-26 12:14] LABS: ALBUMIN 2.5 g/dL (3.4-5.0); CALCIUM 8.7 mg/dL (8.5-10.1); CREATININE 0.6 mg/dL (0.6-1.0); MAGNESIUM 1.8 mg/dL (1.8-2.4); PHOSPHORUS 4.1 mg/dL (2.5-4.9); POTASSIUM 3.8 mmol/L (3.5-5.1); TOTAL BILIRUBIN 0.1 mg/dL (<0.1-1.0); TOTAL PROTEIN 8.2 g/dL (6.4-8.2)
[2019-06-26 12:45] LABS: ANISOCYTOSIS 2+
[2019-06-26 15:16] VITALS: BP 115/73
--- NOTE | 2019-06-26 16:36 | NUR ---
SW reviewed chart and spoke with nursing and attending physician. Pt is progressing towards goals for discharge. Discharge to [facility] is anticipated for tomorrow. SW updated [facility] liaison. SW is following to assist as needed with discharge planning.
--- NOTE | 2019-06-26 18:14 | NUR ---
PT CONTINUES TO REPORT PAIN OF 8 TO TRACH SITE AND GENERALIZED ABD
[2019-06-26 19:25] VITALS: BP 116/77
--- NOTE | 2019-06-27 02:45 | NUR ---
Patient progressed towards outcome goals. Oxygenation optimal with 35% oxygen per TT. Eating and drinking adequately. Plenty of urine output and having bowel movements. Vital signs and rhythm stable. Wound vac intact. Discharge plans to facility today.
[2019-06-27 04:45] VITALS: BP 113/72
[2019-06-27] MEDS ORDERED: PANTOPRAZOLE SO40 M1 PER TUBE (08:11)
[2019-06-27] MEDS ORDERED: IPRAT-ALBUT 0.5-3 ML INH (08:11)
[2019-06-27] MEDS ORDERED: MELATONIN5 M1 PER TUBE (08:11)
[2019-06-27] MEDS ORDERED: LASIX 40 MG TAB40 M1 PER TUBE (08:11)
[2019-06-27] MEDS ORDERED: ENOXAPARIN40 MG/0.1 SUBQ (08:11)
[2019-06-27] MEDS ORDERED: CYMBALTA20 MG PER TUBE (08:11)
--- NOTE | 2019-06-27 14:55 | NUR ---
DISCHARGE NOTE: SW reviewed chart and spoke with nursing and attending physician. Pt is medically stable for discharge back to [facility] today. Clinical updates faxed to [facility] for review. SW spoke with pt's father via phone to provide update and notify of anticipated discharge. Pt's father is agreeable with plan. mission planner faxed discharge orders/summary to the facility. Ambulance transportation scheduled for 1600 per [facility]. ISH met with pt at bedside to provide update and notify of discharge timeframe. mission planner to notify family. SW notified pt's [employer] CMSophia, via phone. Sophia will see pt on Sunday at [facility]. Chart copy requested. Nursing to call report. No additional SW needs identified at this time, but is available to assist should needs arise.
[2019-06-27 15:31] VITALS: BP 112/83
[2019-06-27] MEDS ORDERED: NORCO 10-325 T1 EACH PO (15:42)
--- NOTE | 2019-06-27 17:05 | NUR ---
ABD WOUND ON WET TO DRY. PROGRESSING TOWARDS POC GOALS. DC TO CENTER NOW.
--- NOTE | 2019-06-27 17:52 | P ---
[facility] [place] [address] PROCEDURE REPORT Name: MIGUEL COLEMAN Room #: 351-P [facility] IN M.R.#: [id number] Admission: 05/08/19 Attend Phys: Marv Vasquez MD Discharge: Date of : 71 Report #: [id number] THIS REPORT FOR: cc: Khai Jones MD, Srinath MD Thesing,Nikhil Hernandez MD ~ CC: Aleks Jones BRIEF HISTORY: The patient is a 44-year-old woman, who has a history of remote gastric bypass surgery who recently had an anastomotic perforation early this year. She has a feeding tube in the gastric remnant. She now has increasing nausea and vomiting. PREOPERATIVE DIAGNOSES: Nausea, vomiting. POSTOPERATIVE DIAGNOSES: Gastric changes consistent with previous gastric bypass surgery and healed gastrojejunal anastomosis. MEDICATIONS: Deep sedation with propofol per anesthesia. SPECIMEN: None. ESTIMATED BLOOD LOSS: None. PROCEDURE: EGD. FINDINGS: Prior to propofol sedation, procedure of upper endoscopy was discussed with the patient as well as potential risks and its complications. She indicates she understands and desires to proceed. DESCRIPTION OF PROCEDURE: With the patient in left lateral decubitus position, the Olympus video endoscope was inserted in cervical esophagus under direct vision without difficulty. Examination of this organ through its entire length revealed normal esophageal mucosa down the squamocolumnar junction. There was some erythema potentially from vomiting, but erosions or ulcers were not seen. No strictures or masses were seen. A significant hiatus hernia was not seen. Scope was advanced into the gastric lumen. She has had gastric bypass surgery and she has a gastric pouch probably about the size of an orange. Mucosa was normal. Upon retroflexion, no abnormalities were seen. The anastomosis was identified. Multiple jaime were seen at the anastomotic site. There was some erythema, but no ulcerations or bleeding lesions were seen. The anastomosis was widely patent. The short blind end was unremarkable. The scope was passed down the jejunal limb as far as possible. The Ryan-en-Y anastomosis could not be identified. At that point, the scope was slowly withdrawn and careful [facility] [address] [place] [address] PROCEDURE REPORT Name: MIGUEL COLEMAN Room #: 351-P [facility] IN M.R.#: [id number] Admission: 05/08/19 Attend Phys: Marv Vasquez MD Discharge: Date of : 71 Report #: [id number] circumferential views confirmed the above findings. The patient tolerated the procedure well. DISPOSITION: The patient with recent perforation from an ulceration at the old anastomotic site, now with vomiting with attempt at eating. I do not see any evidence of outlet obstruction or stricturing. We will advance diet at this time. <ELECTRONICALLY SIGNED> By: Nikhil Rowan MD 06/27/19 1752 1349 [id number] Nikhil Rowan MD /nt
== END 2019-06-27 17:58 | DRG 3 ==
LOC: ER 10:17 → EROBS 11:35 → ICU 11:35 → 3W 05-29 17:42
PROVIDERS: Anesthesiology; Emergency Medicine; Hospitalist; Internal Medicine; Internal Medicine Pulmonary Disease; Nurse Practitioner; Nurse Practitioner Family; Pediatrics; Surgery; ADMIT Hospitalist
PROC: 0DB80ZZ Excision of Small Intestine, Open Approach (ICD-10-PCS; principal; 2019-05-08)
PROC: 5A1955Z Respiratory Ventilation, Greater than 96 Consecutive Hours (ICD-10-PCS; principal; 2019-05-08)
PROC: 5A12012 Performance of Cardiac Output, Single, Manual (ICD-10-PCS; principal; 2019-05-08)
PROC: B548ZZA Ultrasonography of Superior Vena Cava, Guidance (ICD-10-PCS; principal; 2019-05-08)
PROC: 02HV33Z Insertion of Infusion Device into Superior Vena Cava, Percutaneous Approach (ICD-10-PCS; principal; 2019-05-08)
PROC: 0DHA0UZ Insertion of Feeding Device into Jejunum, Open Approach (ICD-10-PCS; 2019-05-11)
PROC: 0DBA0ZZ Excision of Jejunum, Open Approach (ICD-10-PCS; 2019-05-11)
PROC: 0DN80ZZ Release Small Intestine, Open Approach (ICD-10-PCS; 2019-05-11)
PROC: 0D160ZA Bypass Stomach to Jejunum, Open Approach (ICD-10-PCS; 2019-05-11)
PROC: 30233N1 Transfusion of Nonautologous Red Blood Cells into Peripheral Vein, Percutaneous Approach (ICD-10-PCS; 2019-05-14)
PROC: 0B113F4 Bypass Trachea to Cutaneous with Tracheostomy Device, Percutaneous Approach (ICD-10-PCS; 2019-05-28)
PROC: 0DJ08ZZ Inspection of Upper Intestinal Tract, Via Natural or Artificial Opening Endoscopic (ICD-10-PCS; 2019-06-24)
DX: A41.9 Sepsis, unspecified organism (principal); K63.1 Perforation of intestine (nontraumatic); J96.21 Acute and chronic respiratory failure with hypoxia; R65.21 Severe sepsis with septic shock; I46.9 Cardiac arrest, cause unspecified; E43 Unspecified severe protein-calorie malnutrition; K65.8 Other peritonitis; J96.22 Acute and chronic respiratory failure with hypercapnia; K28.4 Chronic or unspecified gastrojejunal ulcer with hemorrhage; G92 Toxic encephalopathy; F11.20 Opioid dependence, uncomplicated; R18.8 Other ascites; E87.2 Acidosis; K56.609 Unspecified intestinal obstruction, unspecified as to partial versus complete obstruction; I13.0 Hypertensive heart and chronic kidney disease with heart failure and stage 1 through stage 4 chronic kidney disease, or unspecified chronic kidney disease; N17.9 Acute kidney failure, unspecified; L03.113 Cellulitis of right upper limb; E87.0 Hyperosmolality and hypernatremia; L02.211 Cutaneous abscess of abdominal wall; K43.6 Other and unspecified ventral hernia with obstruction, without gangrene; J44.9 Chronic obstructive pulmonary disease, unspecified; G89.4 Chronic pain syndrome; F41.9 Anxiety disorder, unspecified; F31.9 Bipolar disorder, unspecified; E16.2 Hypoglycemia, unspecified; I25.10 Atherosclerotic heart disease of native coronary artery without angina pectoris; N18.9 Chronic kidney disease, unspecified; F19.10 Other psychoactive substance abuse, uncomplicated; E66.9 Obesity, unspecified; F17.210 Nicotine dependence, cigarettes, uncomplicated; I50.9 Heart failure, unspecified; E55.9 Vitamin D deficiency, unspecified; E53.8 Deficiency of other specified B group vitamins; D64.9 Anemia, unspecified; E88.01 Alpha-1-antitrypsin deficiency; D69.6 Thrombocytopenia, unspecified; K29.70 Gastritis, unspecified, without bleeding; E87.5 Hyperkalemia; Z79.51 Long term (current) use of inhaled steroids; Z90.49 Acquired absence of other specified parts of digestive tract; Z79.899 Other long term (current) drug therapy; Z88.6 Allergy status to analgesic agent; Z88.8 Allergy status to other drugs, medicaments and biological substances; Z98.84 Bariatric surgery status; Z68.25 Body mass index [BMI] 25.0-25.9, adult; Z99.81 Dependence on supplemental oxygen
CPT/HCPCS: 10078; 10879; 50093; 50101; 50152; 50386; 50403; 50455; 50643; 50820; 51114; 51398; 51412; 51420; 51435; 51712; 56525; 56526; 56527; 57092; 57103; 57114; 62110; 62900; 65020; 65040; 70005; 83006; 85076

== ENCOUNTER → 2019-07-17 | Outpatient (CLI) | payer OTHER ==
[~2019-07-17] MED LIST changes: +CENTRUM MU9 MG/15 ML PER TUBE; +CYMBALTA20 MG PER TUBE; +DAKIN'S473 M2 IRRIG; +ENOXAPARIN40 MG/0.1 SUBQ; +FENTANYL 050 MCG/1 M IV PUSH; +HEPARIN SO5000 UNIT/ SUBQ; +LASIX 40 MG TAB40 M1 PER TUBE; +MELATONIN5 M1 PER TUBE; +NORCO 10-325 T1 EACH PO; +PANTOPRAZOLE SO40 M1 PER TUBE
== END ==
LOC: RAD 07:34
DX: Z93.1 Gastrostomy status (principal)

== ENCOUNTER 2019-09-12 00:22 | Inpatient (IN) | payer OTHER ==
[~2019-09-12] VITALS: Ht 165.1 cm; Wt 72.4 kg
[2019-09-12] VITALS (7 sets, daily range): BP systolic 118–132; BP diastolic 67–88
[2019-09-12] MEDS ORDERED: NEURONTIN100 MG PO (00:46)
[2019-09-12] MEDS ORDERED: OXYGEN MISCELL (00:50)
[2019-09-12] MEDS ORDERED: KETOCONAZOLE15 GM TOP (00:51)
[2019-09-12] MEDS ORDERED: AMBIEN5 MG PO (00:53)
[2019-09-12] MEDS ORDERED: PROSOURCE PLUS30 ML PO (00:54)
[2019-09-12] MEDS ORDERED: MIRALAX119 GM PO (00:56)
[2019-09-12 01:08] LABS: ABSOLUTE NEUTROPHILS 3.4 thou/uL (1.4-8.2); BASOPHILS 0.4 % (0.0-2.0); HEMOGLOBIN 10.9 gm/dL (12.0-15.0); LYMPHOCYTES 33.5 % (24.0-44.0); MCH 28.2 pg (26.0-34.0); MCHC 32.9 g/dL (28.0-37.0); MCV 85.9 fL (80.0-100.0); PLATELET COUNT 260 thou/uL (150-400); POLYS 57.1 % (36.0-66.0); RBC 3.85 mil/uL (4.20-5.00); RDW 15.3 % (10.5-14.5)
[2019-09-12 01:13] LABS: CALCIUM 8.2 mg/dL (8.5-10.1); CREATININE 0.7 mg/dL (0.6-1.0); POTASSIUM 3.7 mmol/L (3.5-5.1)
[2019-09-12 01:20] LABS: ALBUMIN 2.4 g/dL (3.4-5.0); TOTAL BILIRUBIN 0.2 mg/dL (<0.1-1.0); TOTAL PROTEIN 6.4 g/dL (6.4-8.2)
[2019-09-12 13:57] LABS: APTT 40.1 Seconds (24.5-32.8); PROTIME 10.2 Seconds (9.3-11.4)
[2019-09-13 05:56] LABS: HEMATOCRIT 33.9 % (37.0-47.0); HEMOGLOBIN 10.9 gm/dL (12.0-15.0); MCH 27.9 pg (26.0-34.0); MCHC 32.3 g/dL (28.0-37.0); MCV 86.4 fL (80.0-100.0); RBC 3.93 mil/uL (4.20-5.00); RDW 15.1 % (10.5-14.5); WBC 5.5 thou/uL (4.0-11.0)
[2019-09-13 06:23] LABS: ALBUMIN 2.2 g/dL (3.4-5.0); CALCIUM 7.8 mg/dL (8.5-10.1); CREATININE 0.6 mg/dL (0.6-1.0); MAGNESIUM 1.7 mg/dL (1.8-2.4); POTASSIUM 3.3 mmol/L (3.5-5.1); TOTAL BILIRUBIN 0.2 mg/dL (<0.1-1.0); TOTAL PROTEIN 5.9 g/dL (6.4-8.2)
[2019-09-13 07:33] VITALS: BP 122/80
[2019-09-13 17:00] VITALS: BP 120/68
[2019-09-13 20:04] VITALS: BP 130/23
[2019-09-14 07:41] VITALS: BP 126/69
[2019-09-14 16:15] VITALS: BP 117/70
[2019-09-14 20:02] VITALS: BP 124/76
[2019-09-15 07:22] VITALS: BP 138/83
[2019-09-15 10:25] LABS: HEMATOCRIT 33.5 % (37.0-47.0); HEMOGLOBIN 11.2 gm/dL (12.0-15.0); MCH 28.6 pg (26.0-34.0); MCHC 33.3 g/dL (28.0-37.0); MCV 85.8 fL (80.0-100.0); RBC 3.91 mil/uL (4.20-5.00); WBC 5.2 thou/uL (4.0-11.0)
[2019-09-15 10:28] LABS: CALCIUM 8.5 mg/dL (8.5-10.1); CREATININE 0.5 mg/dL (0.6-1.0); MAGNESIUM 1.8 mg/dL (1.8-2.4); POTASSIUM 3.4 mmol/L (3.5-5.1)
[2019-09-15 15:26] VITALS: BP 137/89
--- NOTE | 2019-09-15 16:51 | P ---
[facility] [place] [address] PROCEDURE REPORT Name: MIGUEL COLEMAN Room #: 1[facility] IN M.R.#: [id number] Admission: 09/12/19 Attend Phys: Horacio [place] Discharge: Date of : 71 Report #: [id number] THIS REPORT FOR: cc: Khai Jones MD,Khai Rowan,Nikhil Hernandez MD ~ CC: Aleks Jones BRIEF HISTORY: The patient is a 44-year-old woman known to me with a complicated GI history including gastric bypass surgery for weight loss right after 01/15 who earlier this year had a perforated anastomotic ulcer requiring surgery. 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 She presents with abdominal pain which is persistent and is worsened with eating. She also reports nausea and vomiting anytime she tries to eat solids. She reports she has lost about 8 pounds recently. PREOPERATIVE DIAGNOSIS: History of perforated anastomotic ulcer with previous gastric bypass with increasing abdominal pain, nausea, vomiting. POSTOPERATIVE DIAGNOSES: 1. Anastomotic ulcer. 2. Chronic appearing gastritis. 3. Surgical changes consistent with Ryan-en-Y gastric bypass surgery. 4. 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 MEDICATIONS: Deep sedation with propofol per anesthesia. SPECIMEN: Biopsies of gastritis. ESTIMATED BLOOD LOSS: 3 mL. PROCEDURE: EGD with biopsy. FINDINGS: Prior to propofol sedation, procedure of upper endoscopy discussed with the patient as well as potential risks and its complications. She indicates she understands and desires to proceed. DESCRIPTION OF PROCEDURE: With the patient in left lateral decubitus position, we started the procedure with a pediatric colonoscope with the intention of trying to reach the Ryan-en-Y gastric bypass to do examination of the gastric remnant, which has a gastrostomy tube. Examination of the esophagus through its entire length revealed normal esophageal mucosa. The squamocolumnar junction was identified. It was intact. There was no endoscopic evidence of esophagitis. However, a small pseudodiverticulum was seen just prior to the [facility] [address] [place] [address] PROCEDURE REPORT Name: MIGUEL COLEMAN Room #: 461-P ADM IN M.R.#: [id number] Admission: 09/12/19 Attend Phys: Horacio [place] Discharge: Date of : 71 Report #: [id number] squamocolumnar junction. A hiatus hernia was not seen. The scope was advanced into the gastric pouch. The pouch was about the size of an orange. There was a pattern of chronic gastritis and multiple biopsies were obtained. Examination of the anastomosis revealed a small amount of dark material consistent with old blood. Brisk bleeding was not seen. The anastomosis was inspected. There was some superficial and erosive change of the mucosa. The small bowel limb was identified, entered, and noted to be unremarkable. In addition, the blind end of the small bowel was identified, entered, and no ulcer was seen. At the level of the anastomosis, there was a deep ulcer that was with very friable edges. I did not go all the way into the ulcer crater as it was quite deep, but whitish material consistent with ulcer crater was seen. Since she has an anastomotic ulcer, we did not make attempts to pass the scope all the way down to the Ryan-en-Y limb and up into the gastric remnant. The scope was withdrawn. The patient tolerated the procedure well. DISPOSITION: The patient with a complicated GI history with previous surgeries including gastric bypasses surgery in the past for fistula and more recently for perforated anastomotic ulcer with evidence of another anastomotic ulcer. There was a small amount of blood, but brisk bleeding was not identified. At this point in time, we will place her on pantoprazole and also sucralfate. It is noted that the surgical specimen from her surgery earlier this year from her perforated ulcer revealed ischemic changes, so I wonder if ischemia is an ongoing process. Also, biopsies were obtained today to evaluate for H. pylori. We discussed further with Dr. Hodges. She may need further imaging and potentially may need further surgery. <ELECTRONICALLY SIGNED> By: Nikhil Rowan MD 09/15/19 1651 0904 [id number] Nikhil Rowan MD /nt
[2019-09-15 20:00] VITALS: BP 129/89
[2019-09-16 07:38] VITALS: BP 135/66
--- NOTE | 2019-09-16 14:08 | PATH ---
[facility] [address] [place] [address] PATHOLOGY RPT PROCEDURE Name: MIGUEL CARLSON Room #: 461-P ADM IN M.R.#: [id number] Admission: 09/12/19 Date of : 71 Discharge: Report #: [id number] Path Case #: [id number] [facility] Accession Number: [id number] . 01 Material submitted: . stomach - BX GASTRITIS . 01 Clinical history: . Epigastric pain; R/O H. pylori . 02 Diagnosis: Gastric mucosa, gastritis rule out H. pylori, endoscopic biopsy: - Mild chronic inflammation. - Negative for intestinal metaplasia or atrophy. - Negative for Helicobacter pylori (properly controlled immunohistochemical stain performed). (IUV/db; 09/16/2019) LBQ 09/16/2019 1249 Local . 02 Electronically signed: . Lauren Saenz MD, Pathologist NPI- [id number] . 01 Gross description: . The specimen is received in formalin, labeled "Miguel Carlson, biopsy gastritis, R/O H. pylori". Received is a segment of pale garcia soft tissue measuring 0.7 cm in maximum dimensions. The specimen is submitted entirely in cassette A1. (CAA; 09/15/2019) QAC/QA 09/15/2019 1546 Local . 02 Pathologist provided ICD-10: K29.50 . 02 CPT . 473886, L09818 Specimen Comment: A courtesy copy of this report has been sent to [phone] Specimen Comment: Report sent to Performed at: [address], [place], [place] [id number] MD Romero Hoffman MD Phone: [phone] Performed at: [address] [id number] MD Lauren Saenz MD Phone: [phone]
--- NOTE | 2019-09-16 16:48 | HC ---
[facility] [place] [address] [address] [place] [address] CONSULTATION Name: MIGUEL COLEMAN Room #: 461-P ADM IN M.R.#: [id number] Admission: 09/12/19 Attend Phys: Horacio [place] Discharge: Date of : 71 Report #: [id number] THIS REPORT FOR: cc: Khai Jones MD, Srinath MD Althoff,Jose Boykin MD ~ CC: Horacio Jones DATE OF SERVICE: 09/12/2019 CHIEF COMPLAINT: Surgical wound to the abdominal wall and PEG tube site inflammation. HISTORY OF PRESENT ILLNESS: This is a 44-year-old female patient with whom I am familiar from recent hospitalization with a history of an emergent exploratory laparoscopy for perforated GJ ulceration. She has a history of gastric bypass. She required an open abdomen and gastrostomy feeding tube in her gastric remnant and has tracheostomy. She has developed increased redness and then some additional breakdown along the midline and old surgical incision at the most proximal more cephalad portion of that incision. She is not noting much pain, but continued irritation around her G-tube site. She states that the facility in which she lives is not utilizing the G tube site due to excessive leakage around it, but she does not feel that she is able to eat enough on her own to keep up with her nutritional needs and reports that she has lost 7 or 8 pounds in the last week and 20 pounds over the last 30 days. PAST MEDICAL HISTORY: Positive for gastroesophageal reflux disease, bipolar disorder, hypertension, anxiety, depression, chronic narcotic use, alpha-1 deficiency, COPD, previous cholecystectomy, previous gastric bypass, exact details of that procedure are not available to me at this time. Perforated marginal ulcer. SOCIAL HISTORY: The patient is a daily smoker. No alcohol use. FAMILY HISTORY: Noncontributory. MEDICATIONS: Lidoderm patch, ipratropium/albuterol, duloxetine, Cymbalta, pantoprazole, furosemide, hydrocodone and enoxaparin. ALLERGIES: ASPIRIN, IBUPROFEN AND OTHER NONSTEROIDALS. REVIEW OF SYSTEMS: CONSTITUTIONAL: The patient denies fever, chills, but does note weight loss as noted in history of present illness. EYES: The patient denies visual changes, redness, or drainage. [address] [address] CONSULTATION Name: MIGUEL COLEMAN Room #: 461-P [facility] IN M.R.#: [id number] Admission: 09/12/19 Attend Phys: Horacio [place] Discharge: Date of : 71 Report #: [id number] ENT: The patient denies earache, nasal drainage, sore throat. CARDIOVASCULAR: The patient denies chest pain, palpitations or diaphoresis. PULMONARY: The patient denies cough or shortness of breath. She does have tracheostomy. Uses humidified oxygen. GASTROINTESTINAL: The patient denies nausea or vomiting. Notes some abdominal pain, especially in the site of her G-tube, a little bit of drainage and separation of previous surgical incision to the midline abdominal wall. GENITOURINARY: The patient denies frequency or urgency of urination. Denies dysuria. ORTHOPEDIC: The patient denies pain or swelling in the extremities. Other systems in a 14-point review of systems are negative. PHYSICAL EXAMINATION: VITAL SIGNS: At this time include temperature 37.2, pulse 86, respiratory rate 18, blood pressure 121/79. GENERAL: This is a chronically ill-appearing female patient who appears to be in no distress. HEENT: Head normocephalic. Nose and throat are clear. NECK: Demonstrates tracheostomy with a trach shield in place. LUNGS: Slightly coarse with good air movement. HEART: Regular. ABDOMEN: Soft. There is tenderness along the abdominal wall around the G-tube site with some surrounding erythema. There are really 2 areas of separation in the midline abdominal incision. The most cephalad portion is more in the midportion. There is a little bit of undermining at the cephalad portion, some fibrin seen in the base, not a lot of granulation. There is no overt fluctuance. Minimal tenderness is noted. EXTREMITIES: Without clubbing or cyanosis. NEUROLOGIC: The patient is alert, oriented, appropriate. LABORATORY DATA: Include white blood cell count of 6000, hemoglobin of 10.9, hematocrit of 33.0. Sodium 140, potassium 3.7, chloride 105, CO2 of 27, BUN 6, creatinine 0.7, glucose 78. CLINICAL IMPRESSION: 1. Surgical wound to the abdominal wall following previous open laparotomy with some drainage along previously closed incision line. 2. Abdominal wall moisture-associated dermatitis related to a G-tube leakage. 3. History of gastric bypass. 4. History of marginal ulcer. 5. Malnutrition, moderate. RECOMMENDATIONS: At this point in time, we have applied Orange to the areas of excoriation and redness of the abdominal wall and all areas have been covered with silver alginate and ABD. We have packed the open areas with a little bit of silver alginate as well. CT scan of the abdomen has been ordered, which has [facility] [address] [place] [address] CONSULTATION Name: MIGUEL COLEMAN Room #: 461-P ADM IN M.R.#: [id number] Admission: 09/12/19 Attend Phys: Horacio [place] Discharge: Date of : 71 Report #: [id number] demonstrated surgical change of the upper abdomen and stomach, small gastric remnant, percutaneous catheter in place. Anterior abdominal incision appears improved compared to previous study of 06/23/2019 with no evidence of abscess or inflammation. IUD in place. Continue with local care. She may benefit from nutritional supplementation through tube feeding. I appreciate being asked to see her in consultation. <ELECTRONICALLY SIGNED> By: Jose Garner MD 09/16/19 1648 1602 1903 Jose Garner MD /nt
[2019-09-16 17:09] VITALS: BP 141/94
[2019-09-16 20:23] VITALS: BP 140/89
[2019-09-17 09:06] VITALS: BP 136/78
[2019-09-17] MEDS ORDERED: BACTRIM DS TAB1 EACH PO (13:39)
[2019-09-17 15:12] VITALS: BP 122/78
[2019-09-17 19:38] VITALS: BP 128/81
[2019-09-18 07:31] VITALS: BP 126/71
== END 2019-09-18 17:26 | DRG 602 ==
LOC: ER 00:22 → EROBS 03:27 → 4W 03:27 → EROBS 03:27 → 4W 04:18
PROVIDERS: Emergency Medicine; Internal Medicine; ADMIT Hospitalist
PROC: 0DB68ZX Excision of Stomach, Via Natural or Artificial Opening Endoscopic, Diagnostic (ICD-10-PCS; principal; 2019-09-12)
PROC: 02H633Z Insertion of Infusion Device into Right Atrium, Percutaneous Approach (ICD-10-PCS; 2019-09-15)
DX: L03.311 Cellulitis of abdominal wall (principal); E43 Unspecified severe protein-calorie malnutrition; F11.20 Opioid dependence, uncomplicated; J96.11 Chronic respiratory failure with hypoxia; K94.23 Gastrostomy malfunction; J44.9 Chronic obstructive pulmonary disease, unspecified; G89.4 Chronic pain syndrome; F41.9 Anxiety disorder, unspecified; F32.9 Major depressive disorder, single episode, unspecified; L30.8 Other specified dermatitis; K29.70 Gastritis, unspecified, without bleeding; B96.5 Pseudomonas (aeruginosa) (mallei) (pseudomallei) as the cause of diseases classified elsewhere; I50.9 Heart failure, unspecified; F17.210 Nicotine dependence, cigarettes, uncomplicated; E88.01 Alpha-1-antitrypsin deficiency; Y83.8 Other surgical procedures as the cause of abnormal reaction of the patient, or of later complication, without mention of misadventure at the time of the procedure; I11.0 Hypertensive heart disease with heart failure; Y82.8 Other medical devices associated with adverse incidents; R13.10 Dysphagia, unspecified; K28.9 Gastrojejunal ulcer, unspecified as acute or chronic, without hemorrhage or perforation; Z46.89 Encounter for fitting and adjustment of other specified devices; Z90.49 Acquired absence of other specified parts of digestive tract; Z88.6 Allergy status to analgesic agent; Z88.8 Allergy status to other drugs, medicaments and biological substances
CPT/HCPCS: 10040; 27000; 62110; 62900

== ENCOUNTER 2019-10-08 02:33 | Inpatient (IN) | payer OTHER ==
[~2019-10-08] VITALS: Ht 165.1 cm; Wt 66.7 kg
[~2019-10-08 02:33] MED LIST changes: +AMBIEN5 MG PO; +BACTRIM DS TAB1 EACH PO; +KETOCONAZOLE15 GM TOP; +MIRALAX119 GM PO; +NEURONTIN100 MG PO; +OXYGEN MISCELL; +PROSOURCE PLUS30 ML PO
[2019-10-08 02:34] VITALS: BP 126/85
[2019-10-08 03:07] LABS: HEMATOCRIT 40.3 % (37.0-47.0); MCH 28.4 pg (26.0-34.0); MCHC 32.1 g/dL (28.0-37.0); MCV 88.4 fL (80.0-100.0); RBC 4.56 mil/uL (4.20-5.00); RDW 17.1 % (10.5-14.5); WBC 8.4 thou/uL (4.0-11.0)
[2019-10-08 03:08] LABS: ANION GAP 6 mmol/L (7-16); BUN 8 mg/dL (7-18); CALCIUM 7.4 mg/dL (8.5-10.1); CHLORIDE 105 mmol/L (98-107); CO2 33 mmol/L (21-32); CREATININE 0.7 mg/dL (0.6-1.0); GLUCOSE 91 mg/dL (74-106); POTASSIUM 3.3 mmol/L (3.5-5.1); SODIUM 144 mmol/L (136-145)
[2019-10-08 03:19] LABS: ALBUMIN 2.4 g/dL (3.4-5.0); LIPASE 91 U/L (73-393); SGOT 11 U/L (15-37); SGPT 11 U/L (30-65); TOTAL BILIRUBIN 0.2 mg/dL (0.2-1.0); TOTAL PROTEIN 6.1 g/dL (6.4-8.2); TROPONIN-I <0.06 ng/mL (<0.06)
[2019-10-08] MEDS ORDERED: CARAFATE1 GM PO (03:33)
[2019-10-08 03:44] LABS: URINE BILIRUBIN 1+ (Negative); URINE BLOOD NEGATIVE (Negative); URINE CLARITY CLEAR; URINE COLOR YELLOW; URINE GLUCOSE-RANDOM* NEGATIVE (Negative); URINE KETONES NEGATIVE (Negative); URINE LEUKOCYTES-REFLEX NEGATIVE (Negative); URINE NITRITE-REFLEX NEGATIVE (Negative); URINE PROTEIN (DIPSTICK) TRACE (Negative); URINE SPECIFIC GRAVITY 1.025 (1.005-1.035); URINE UROBILINOGEN 0.2 E.U./dl (0.2-1.0)
[2019-10-08] MEDS ORDERED: OSMOLITE 1.2 C237 ML PER TUBE (03:44)
[2019-10-08] MEDS ORDERED: CENTAMIN L9 MG/15 ML PO (03:46)
--- NOTE | 2019-10-08 08:29 | EKG ---
[facility] [place] [address] [address] [place] [address] ELECTROCARDIOGRAM REPORT Name: MIGUEL COLEMAN Room #: 170-12 ADM IN M.R.#: [id number] Admission: 10/08/19 Attend Phys: Richard Garcia MD Discharge: Date of : 71 Report #: [id number] THIS REPORT FOR: cc: Khai Jones MD, Srinath MD Lundgren,Kamar Ball MD [facility] ~ THIS REPORT FOR: //name// [facility] ED Test Date: 2019-10-08 Test Time: 02:40:33 Pat Name: MIGUEL COLEMAN Department: Room: 170 Gender: F Screed Person: johnna : 1975 Requested By: Cecilia Castro Order Number: [id number] MD: Kamar Finley Measurements Intervals [place] Rate: 90 P: 76 NV: 132 QRS: -22 QRSD: 92 T: 34 QT: 363 QTc: 444 Interpretive Statements Sinus rhythm Borderline left axis deviation Abnormal T, consider ischemia, anterior leads Compared to ECG 04/18/2019 11:55:30 T-wave abnormality now present Electronically Signed On 10-08-2019 8:27:16 CDT by Kamar Finley [email or web address] <ELECTRONICALLY SIGNED> By: Kamar Finley MD, [facility] 10/08/19 0827 9 9 Kamar Finley MD, [facility] /EPI
[2019-10-08 09:50] LABS: BE(vivo) 0.8 mmol/L (-2 to +3); sO2 80.4 % (92.0-98.0)
[2019-10-08 09:51] LABS: PCO2 71.8 mmHg (35.0-45.0); PO2 53.2 mmHg (80.0-100.0); pH 7.239 (7.360-7.450)
[2019-10-08 12:17] VITALS: BP 120/66
[2019-10-08 13:39] VITALS: BP 96/51
--- NOTE | 2019-10-08 18:32 | NUR ---
CARMELLA ADMITTED TO UNIT AT THIS TIME. SHE IS VENT DEPENDENT AT THIS TIME. OXYGEN SATS AT 100 PERCENT. SHE DID COMPLAIN OF PAIN TO HER THROAT AND PRN MORPHINE SULFATE ADMINISTERED AND IT WAS EFFECTIVE. CONT OF BOWEL AND BLADDER.
[2019-10-08 19:14] VITALS: BP 123/81
[2019-10-09 04:18] VITALS: BP 117/60
--- NOTE | 2019-10-09 05:35 | NUR ---
ASSUMED CARE AT 1900. PT CALLING OUT FREQ FOR CRACKERS AND COFFEE OR SODA, WELL ASKING FOR PAIN MEDS FREQ. REPORTS HEADACHE AND THROAT PAIN FROM CHANGING OUT THE TRACH TUBE. SATTING WELL OVERNIGHT. CALLING APPROPRIATELY TO USE BEDPAN. TUBE FEEDING STARTED AT 2200, WILL RUN TO 0600; NO RESIDUAL, DENIES NAUSEA OR BLOATING. NO OTHER CONCERNS, WILL CONTINUE TO MONITOR.
[2019-10-09 06:29] LABS: CALCIUM 7.8 mg/dL (8.5-10.1); CREATININE 0.6 mg/dL (0.6-1.0); POTASSIUM 4.4 mmol/L (3.5-5.1)
[2019-10-09 08:36] VITALS: BP 123/69
--- NOTE | 2019-10-09 14:24 | NUR ---
INITIAL ASSESSMENT: ISH reviewed chart and spoke with nursing and attending physician. Pt was admitted from [facility] LTC due to acute hypoxic respiratory failure. Pt is in Enhanced Isolation to r/o COVID-19. Pt's first test is negative. Second test is pending. Pt had trach replaced. Pt is off the vent now. Discharge back to [facility] is anticipated for tomorrow. ISH spoke with pt's brother, José Luis, via phone to provide update. José Luis is aware and agreeable with discharge plan. operations planner to fax clinical info to [facility] for review. ISH contacted [facility] liaison to update and discuss concern pt voiced about the suction equipment being used at the facility. Liaison to check with the staff at the facility. [facility] is able to accept pt back when she is ready for discharge. ISH is following to assist as needed with discharge planning.
[2019-10-09 14:44] LABS: MCH 28.8 pg (26.0-34.0); MCHC 32.4 g/dL (28.0-37.0); MCV 88.8 fL (80.0-100.0); RBC 3.83 mil/uL (4.20-5.00); RDW 17.2 % (10.5-14.5); WBC 9.6 thou/uL (4.0-11.0)
[2019-10-09 16:14] VITALS: BP 144/79
--- NOTE | 2019-10-09 17:10 | NUR ---
FAXED CLINICAL UPDATE TO [facility] RECEIVED CONFIRMATION AND LEFT MSG WITH RAJENDRA IN ADM OF POSS DC BACK TO FACILITY TOMORROW.
[2019-10-09 19:12] VITALS: BP 143/95
--- NOTE | 2019-10-09 19:22 | NUR ---
PATIENT WAS SWITCHED TO T-TUBE THIS AM FROM VENT. SHE IS DOES HAVE PERIODS SHE IS ANXIOUS ABOUT HER SITUATION. SHE IS ALERT X4. PAIN CONTROLLED WITH MS. EVAN LANGFORD PLAN OF CARE.
--- NOTE | 2019-10-09 21:03 | NUR ---
1899 ASSUMED CARE BOF PT AFTER REPORT. 1899 BASELINE ASSESSMENT COMPLETED, PT ON TRACH COLLAR WITH INLINE SUCTION AT 35% O2 RESP AND DR MEJIAS IN TO SEE PT, PT WITH LUNGS COARSE IN BUL CLEAR WITH COUGH AND SX, PT WITH C/O PAIN TO THROAT. ALERT AND ORIENTED X 4 O2 SAT 95%, RESP 22 SKING P/W/D, CAP REFILL<3 SEC FALL PRECAUTIONS IN PLACE PT REFUSING SCD'S BUT LOVENOX OREDERED. WILL CONTINUE TO MONITOR. 2100 MEDS GIVEN PER JUL, PT REFUSING IV FLUIDS OR IV ABX WOULD LIKE ME TO CALL AND ASK FOR PO ABX, ALSO REFUSING MOUTH RINCE. WILL ALERT MEDICINE TEACHER MORPHINE GIVEN FOR PAIN, WILL CONTINUE TO MONITOR
[2019-10-10 05:46] VITALS: BP 137/97
[2019-10-10 06:15] LABS: HEMATOCRIT 37.9 % (37.0-47.0); HEMOGLOBIN 11.9 gm/dL (12.0-15.0); MCH 28.1 pg (26.0-34.0); MCHC 31.3 g/dL (28.0-37.0); MCV 89.7 fL (80.0-100.0); RBC 4.22 mil/uL (4.20-5.00); RDW 17.6 % (10.5-14.5)
[2019-10-10 06:43] LABS: BE(vivo) 8.3 mmol/L (-2 to +3); HCO3 35.8 mmol/L (22.0-26.0); PCO2 64.8 mmHg (35.0-45.0); PO2 67.1 mmHg (80.0-100.0)
[2019-10-10 07:07] LABS: CALCIUM 8.3 mg/dL (8.5-10.1); CREATININE 0.5 mg/dL (0.6-1.0); MAGNESIUM 1.9 mg/dL (1.8-2.4)
[2019-10-10 07:08] LABS: POTASSIUM 4.9 mmol/L (3.5-5.1)
[2019-10-10 08:04] VITALS: BP 141/87
[2019-10-10] MEDS ORDERED: PERIDEX 0.12%473 M1 MUCOUS MEM (11:57)
[2019-10-10] MEDS ORDERED: DOXYCYCLINE 10100 M2 PER TUBE (11:57)
[2019-10-10] MEDS ORDERED: PREDNISONE 5 MG5 M1 PER TUBE (11:57)
[2019-10-10] MEDS ORDERED: ACETAMINOPHEN325 M1 PO (11:57)
[2019-10-10 12:18] VITALS: BP 141/79
--- NOTE | 2019-10-10 13:05 | NUR ---
PT DISCHARGING TODAY BACK TO [facility] FAXED DC ORDERS/SUMMARY TO FACILITY SPOKE WITH CARMELO IN ADM SHE RECEIVED ORDERS AND ARRANGED TRANSPORT BY [facility] FOR 1400 TODAY. NOTIFIED PT'S BROTHER (RIGO) OF DC AND TIME OF TRANSPORT. UNIT NOTIFIED AND CHART COPY PER US. RN TO CALL REPORT TO [phone].
--- NOTE | 2019-10-10 16:21 | NUR ---
DISCHARGE NOTE: SW reviewed chart and spoke with nursing and attending physician. Pt has had two negative COVID-19 tests. Pt is medically stable for discharge back to [facility] LT today. Pt requesting to speak with SW. Discussed with Director of Case Mgmt. SW is unable to meet with pt in person due to conserving PPE. SW spoke with pt via phone with the assistance of pt's nurse. Pt was wanting to move to a new LTC facility and is unsure if the facility SW has started working on it, as he has been on vacation. Pt also wanted to ask for the staff at the nursing facility to check on her more often. ISH explained to pt that both of these issues will be relayed to [facility] liaisonTammy. Pt acknowledged understanding and is agreeable with returning to [facility] today. ISH contacted [facility] liaison, Tammy, to discuss pt's concerns and requests. ISH discussed with Tammy the possibility of pt transferring to their [place] facility, [facility], and establish [place] residency to have [place]. Then, maybe pt could transfer to [facility] for nursing home care, where RT is available 27/11. Pt requires RT support with trach. financial planner to coordinate discharge and notify family. No further SW needs identified at this time, but is available to assist should needs arise.
== END 2019-10-10 14:35 | DRG 208 ==
LOC: ER 02:33 → 3W 05:19 → EROBS 05:19 → 3W 14:20
PROVIDERS: Emergency Medicine; Nurse Practitioner Family; Student in an Organized Health Care Education/Training Program; ADMIT Internal Medicine; ATTEND Internal Medicine
DX: J96.21 Acute and chronic respiratory failure with hypoxia (principal); E43 Unspecified severe protein-calorie malnutrition; J44.1 Chronic obstructive pulmonary disease with (acute) exacerbation; L03.311 Cellulitis of abdominal wall; F19.11 Other psychoactive substance abuse, in remission; F41.9 Anxiety disorder, unspecified; F31.9 Bipolar disorder, unspecified; K21.9 Gastro-esophageal reflux disease without esophagitis; I11.0 Hypertensive heart disease with heart failure; I50.9 Heart failure, unspecified; G89.4 Chronic pain syndrome; F17.210 Nicotine dependence, cigarettes, uncomplicated; J96.22 Acute and chronic respiratory failure with hypercapnia; D64.9 Anemia, unspecified; R13.10 Dysphagia, unspecified; Z88.8 Allergy status to other drugs, medicaments and biological substances; Z93.0 Tracheostomy status; Z90.49 Acquired absence of other specified parts of digestive tract; Z99.81 Dependence on supplemental oxygen; Z98.84 Bariatric surgery status; Z87.01 Personal history of pneumonia (recurrent); Z88.5 Allergy status to narcotic agent; Z79.899 Other long term (current) drug therapy; Z20.828 Contact with and (suspected) exposure to other viral communicable diseases; Z79.891 Long term (current) use of opiate analgesic; E88.01 Alpha-1-antitrypsin deficiency
CPT/HCPCS: 10779; 10879

== ENCOUNTER 2019-10-10 19:05 | Inpatient (IN) | payer OTHER ==
[~2019-10-10] VITALS: Ht 165.1 cm; Wt 69.4 kg
[~2019-10-10 19:05] MED LIST changes: +ACETAMINOPHEN325 M1 PO; +CARAFATE1 GM PO; +CENTAMIN L9 MG/15 ML PO; +DOXYCYCLINE 10100 M2 PER TUBE; +OSMOLITE 1.2 C237 ML PER TUBE; +PERIDEX 0.12%473 M1 MUCOUS MEM; +PREDNISONE 5 MG5 M1 PER TUBE
[2019-10-10 19:06] VITALS: BP 158/101
[2019-10-10 19:29] LABS: BE(vivo) 8.6 mmol/L (-2 to +3); HCO3 34.4 mmol/L (22.0-26.0); PCO2 52.4 mmHg (35.0-45.0); PO2 56.4 mmHg (80.0-100.0); pH 7.435 (7.360-7.450); sO2 89.8 % (92.0-98.0)
[2019-10-10 19:38] LABS: ABSOLUTE NEUTROPHILS 8.7 thou/uL (1.4-8.2); BASOPHILS 0.3 % (0.0-2.0); EOSINOPHILS 0.3 % (0.0-3.0); HEMATOCRIT 38.8 % (37.0-47.0); HEMOGLOBIN 12.5 gm/dL (12.0-15.0); LYMPHOCYTES 18.7 % (24.0-44.0); MCH 28.4 pg (26.0-34.0); MCHC 32.3 g/dL (28.0-37.0); MCV 88.1 fL (80.0-100.0); MONOCYTES 7.7 % (1.0-8.0); RBC 4.41 mil/uL (4.20-5.00); RDW 17.7 % (10.5-14.5); WBC 11.9 thou/uL (4.0-11.0)
[2019-10-10 19:46] LABS: PLATELET COUNT 288 thou/uL (150-400)
[2019-10-10 19:54] LABS: ANION GAP < 0 mmol/L (7-16); BUN 8 mg/dL (7-18); CHLORIDE 100 mmol/L (98-107); CO2 39 mmol/L (21-32); CREATININE 0.6 mg/dL (0.6-1.0); GLUCOSE 81 mg/dL (74-106); SODIUM 136 mmol/L (136-145)
[2019-10-10 19:59] LABS: POTASSIUM 4.7 mmol/L (3.5-5.1)
[2019-10-10 20:00] LABS: ALBUMIN 2.6 g/dL (3.4-5.0); SGOT 26 U/L (15-37); SGPT 13 U/L (30-65); TOTAL BILIRUBIN 0.3 mg/dL (0.2-1.0); TOTAL PROTEIN 6.8 g/dL (6.4-8.2)
[2019-10-10 21:42] VITALS: BP 122/76
[2019-10-10 22:24] VITALS: BP 129/83
[2019-10-10 22:52] VITALS: BP 136/81
--- NOTE | 2019-10-11 00:09 | NUR ---
PT ADMITTED FROM ED. PT LIVES AT [facility]. PT WAS DISCHARGED FROM [facility] TODAY TO THE ASSISTED. CONFLICTING REPORTS REGARDING WHAT LEAD TO PT BEING READMITTED. EMS REPORTS PT HAD LOW O2 SATURATION ON TRACH SHIELD. ED REPORT FROM FACILITY REPORTS THAT PT WENT OUT TO SMOKE HAD MUCUS PLUG AND WAS NOT ABLE TO MAINTAIN SATURATION. PT STATES THAT THE CONCENTRATOR AT THE FACILITY WAS NOT GIVING HER ENOUGH OXYGEN AND THAT SHE WAS NOT GOING OUTSIDE TO SMOKE. PT IS ON TRACH SHIELD AT FACILITY. PT CURRENTLY ON CPAP VENTILATOR. PT DOES HAVE THICK YELLOW SPUTUM. PT IS CURRENTLY NPO, PT IS ASKING FOR WATER, AT FACILITY PT IS ON A REG DIET. PT AMBULATES IN W/C, PT STATED SHE WAS USING BED ROD AT FACILITY NOT W/C. PT TEARFUL DURING ADMISSION PROCESS WHEN SHE WAS INFORMED THAT ONLY ORAL PAIN MEDS WOULD BE ORDERED BY PROVIDER. . PT REQUESTED AMBIEN AND PROVIDER NOTIFIED. IVF INTACT. PT MOUTHS WORDS OR WRITES OUT CONVERSATION. PEG TUBE INTACT. PROVIDER WANTED DRAIN SPONGE AROUND SITE, PT STATED SHE WAS TOLD TO USE ABD. PT AGREED TO SPONGE WITH ABD OVER. PT REPORTS THAT PEG TUBE LEAKS DURING FEEDING AND PROVIDER AWARE. PT STATED SHE FEELS [facility] IS NEGLIGENT AND WOULD PREFER PLACEMENT SOMEWHERE ELSE.
[2019-10-11 05:18] VITALS: BP 133/7
--- NOTE | 2019-10-11 06:01 | NUR ---
PT PLACED ON TRACH SHIELD BY RESPIRATORY THERAPIST.
[2019-10-11 07:56] VITALS: BP 133/79
[2019-10-11 07:56] LABS: HEMATOCRIT 37.2 % (37.0-47.0); HEMOGLOBIN 12.1 gm/dL (12.0-15.0); MCH 28.5 pg (26.0-34.0); MCHC 32.5 g/dL (28.0-37.0); MCV 87.7 fL (80.0-100.0); RBC 4.24 mil/uL (4.20-5.00); RDW 17.8 % (10.5-14.5); WBC 7.3 thou/uL (4.0-11.0)
[2019-10-11 08:05] LABS: ANION GAP < 0 mmol/L (7-16); BUN 9 mg/dL (7-18); CALCIUM 8.4 mg/dL (8.5-10.1); CHLORIDE 102 mmol/L (98-107); CO2 39 mmol/L (21-32); CREATININE 0.6 mg/dL (0.6-1.0); GLUCOSE 76 mg/dL (74-106); POTASSIUM 3.8 mmol/L (3.5-5.1); SODIUM 139 mmol/L (136-145)
[2019-10-11 08:30] VITALS: BP 133/79
[2019-10-11 11:11] LABS: BE(vivo) 4.9 mmol/L (-2 to +3); HCO3 32.9 mmol/L (22.0-26.0); PO2 79.7 mmHg (80.0-100.0); sO2 94.5 % (92.0-98.0)
[2019-10-11 11:12] LABS: PCO2 65.5 mmHg (35.0-45.0); pH 7.319 (7.360-7.450)
[2019-10-11 16:15] VITALS: BP 134/103
--- NOTE | 2019-10-11 16:32 | NUR ---
RN HAS REPORED TO HOSPITAL AND ID RN ABOUT PT'S COVID NEGATIVE FROM 10/10/19 TEST, PT DOES NOT HAVE FEVER , PT JUST DC TO SNF FOR 6HR , THEN COMING BACK TO ER, PT'S COVID ISOLATION HAS DC.
--- NOTE | 2019-10-11 17:28 | NUR ---
PT IS A&OX3, PT IS OFF VENT WITH T-TUBE O2 35-50%, PT'S VS ARE STABLE, PT DOES NOT HAVE FEVER, PT IS TOLARTED REGULAR MEALS , PT IS CONTINUING PAIN MANAGEMENT, RN HAS NOTIFIED DR ABOUT PT'S COVID TEST IS NEGATIVE, PT'S ISOLATION IS OFF , PT IS RELAXING NOW.
[2019-10-11 20:40] VITALS: BP 138/73
[2019-10-12 03:50] VITALS: BP 112/94
--- NOTE | 2019-10-12 03:54 | NUR ---
PATIENTS CARES WERE ASSUMED AFTER HER TRANSFER DOWN FROM [facility]. PATIENT IS A/O. SHE IS NON VERBAL HOWEVER SHE DOSE COMMUNICATE BY WRITTING ON WHITE COPY PAPER ON A CLIP BOARD. PATIENT DID ARRIVE TO THE FLOOR AT 0243. PATIENTS ROOM WAS EQUIPED FOR HER NEEDS. ROUNDS WERE DONW. THE BED IS IN A LOW AND LOCKED POSITION. PATIENT IS RESTING COMFORTABLY AT THIS TIME.
[2019-10-12 07:25] VITALS: BP 119/74
--- NOTE | 2019-10-12 08:45 | NUR ---
ASSUMED CARE OF PT AT SHIFT CHANGE; NOTED BG ORDERED FEW DAYS DOWN PT STATES NONE HAVE BEEN DONE; WILL SEEK CLARIFICATION WITH PHYSICIAN; NOT DM PER PT, SHE IS A&0X4, NONVERBAL YET USES TABLET; TRACH DISTAL TUBE CAME UNDONE WITH HER REPOSITIONING AND SHE SELF CORRECTED; SEE SEPARATE INTERVENTIONS FOR ASSESSMENTS. CARDIAC MONITORED. ENCOURAGED HER TO USE CALL LIGHT FOR ANY NEEDS
[2019-10-12 09:24] LABS: BE(vivo) 6.4 mmol/L (-2 to +3); HCO3 33.2 mmol/L (22.0-26.0); PO2 85.3 mmHg (80.0-100.0); pH 7.376 (7.360-7.450)
--- NOTE | 2019-10-12 10:52 | NUR ---
ACKNOWLEDGED ORDER FOR ISOLATION; [facility] CONTACTED TO INQUIRE ABOUT SIGNS AND GOWNS, WAS TOLD BY STAFF WE NO LONGER USE/HAVE GOWNS AVAILABLE. PT HAD A LOOSE STOOL THAT WAS NORMAL SMELL. WILL CONTINUE TO MONITOR
[2019-10-12 11:45] VITALS: BP 133/85
[2019-10-12 16:15] VITALS: BP 129/79
--- NOTE | 2019-10-12 18:18 | NUR ---
CASE MANAGEMENT: PT SPOKE W/PHYSICIAN THIS EVENING, WAS CRYING AFTERWARDS STATING (PER WRITING) SHE DOES NOT FEEL SAFE TO RETURN TO SAME NURSING FACILITY. ENCOURAGED HER TO SPEAK (WRITE HER NOTES BEFOREHAND) WITH CASE MANAGEMENT AND PHYSICIANS IN THE A.M. WELL. SHE NODS IN AGREEMENT. ROOM TEMP ISN'T WORKING, MUSIC TEACHER PUT IN WORK ORDER, TURNED ON FAN AND GAVE HER ICE WATER TO DIP A CLOTH IN TO COOL OFF
--- NOTE | 2019-10-13 05:53 | NUR ---
PT ALERT AND ORIENTED. ON O2 13L VIA TRACH. REPORTS TRACH PAIN, PRN MEDs GIVEN. PT VOIDING PER THE URINAL . REMAINS SR ON THE MONITOR. NO SIGN OR RESP. DISTRESS OVERNIGHT. PT DOES NOT WANT TO GO BACK TO [facility]. WOULD LIKE TO FOLLOW UP WITH CASE MANAGEMENT TO FIGURE OUT ANOTHER PLACEENT. WILL CONTINUE TO FOLLOW POC
[2019-10-13 07:40] VITALS: BP 119/77
--- NOTE | 2019-10-13 10:57 | NUR ---
chart review, cm consult rt pt stating want new place to live per note. cm tried calling her x 2 on phone in room and pt personal cell goes to voice message [phone]- left message requesting phone call back. she was dc on 10/10/2019 and back on 10/10/2019 with diff breathing. joelle has trach with shield at 3 L/ trach shield and has to use 13L per trach shield, she also reports trach feels uncomfortable. she uses wheel chair at centers. per report from [facility] joelle called for ems and she had a btx as well. she has [facility]. will cont following as needed for dc needs.
[2019-10-13 11:35] VITALS: BP 128/85
--- NOTE | 2019-10-13 15:49 | NUR ---
Spoke with brother and father. Brother reports he was told only option is [facility] who does not have great reviews. Brother reports he is leaving up to hospital if they can find another place for patient then she can transfer there but let him know where at vt. Father reports long hx of trying to seek help for patient and father reports due to his health he can not longer help her "does not want anything to do with her" now. Patient has no medicare A days left. Patient cont to smoke. She does her own trach care at facility at her request. Patient has her own private room at [facility]. Nurse gave patient list of facilites with note from [facility] that difficult to find smoking facility and also accepting of trach care. Also need to have medicaid ltc bed avail and cannot guarntee private. Patient cannot speak at this time. Brother reports not a good time to make a change as he cannot tour facility. He cannot see patient. SHe cannot speak right now ? if need speaking valve. [facility] at [facility] is able to assist with location of alternate placement. At this time referrals to [place] and [facility]. Patient appealed vt case#[id number]. Appeal in process.
--- NOTE | 2019-10-13 17:39 | NUR ---
FAXED REFERRAL TO [facility] RECEIVED CONFIRMATION AND WILL F/U WITH SYED IN ADM IN THE AM,. FAXED REFERRAL TO [facility] RECEIVED CONFIRMATION AND LEFT MSG WITH SHEMAR IN ADM. DP TO FOLLOW.
--- NOTE | 2019-10-13 20:08 | NUR ---
Receiuved pt from [facility] stable, pt with trach on 13 L O2. Communicates through writing, alert and oriented x 4. Pain is managed with medication, takes some of her medications whole and others are melted with water. POC followed, suctioned as needed. Pt was moved to 436, report given to the night nurse.
[2019-10-14 03:45] VITALS: BP 121/85
[2019-10-14 08:11] VITALS: BP 126/79
--- NOTE | 2019-10-14 10:50 | NUR ---
LATE ENTRY: APPEAL OF DISCHARGE INITIATED YESTERDAY PER PT'S REQUST THROUGH [facility]. CM FAXED CLINICAL RECORD AND RECIEVED FAX CONFIRMATION AT 16:43 YESTERDAY. AWAITING DEERMINATION.
--- NOTE | 2019-10-14 14:47 | NUR ---
PT A&OX4. TRANFERS WITH ASSIST. TRACH INTACT. C/O PAIN TO TRACH AREA, REDNESS NOTED. BR TX PRN, PT BOCOMES ANXIOUS. DESATS TO UPPER 80'S AT TIMES. TOLERATING PO MED/ REG TRAY. DC ORDER NOTED.
--- NOTE | 2019-10-14 16:02 | NUR ---
SPOKE WITH SYED IN ADM AT [facility] THEY CAN ACCEPT PT AT DC. DP TO FOLLOW.
--- NOTE | 2019-10-14 16:11 | NUR ---
ON-GOING ASSESSMENT: CAROL ANN REVIEWED CHART AND SPOKE WITH ATTENDING. PT HAS APPEALED HER DISCHARGE AND INFORMATION WAS SUBMITTED YESTERDAY TO [facility] AND STILL AWAITING DECISION AT THIS TIME. CAROL ANN SPOKE WITH [facility] WHO STATED THEY ACCEPTED PT HOWEVER WHEN CM DPOKE WITH [facility] IN ADMISSIONS SHE STATES THEY HAVE NOT MEDICALLY ACCEPTED PT AT THIS TIME AND ARE STILL REVIEWING. SHE REPORTS THEY NEED ALL PROGRESS NOTES SO THEIR D.O.N CAN REVIEW. CM FAXED INFORMATION. CM ALSO UPDATED LIASON AT [facility] THAT WE ARE AWAITING DECISION.
[2019-10-14 17:26] VITALS: BP 145/97
[2019-10-14 19:15] VITALS: BP 141/90
--- NOTE | 2019-10-15 00:22 | NUR ---
ASSESSMENT COMPLETED. PT IS COOPERATIVE. CONTINUES ON 15L WITH TRACH SHIELD.SHE SELF SUCTIONS PRN. CONTINUES ON BRONCHODILATORS AND CONT PULSE OX. VSS. AFEBRILE. WILL SOMETIMES SAY ONE LETTER WORDS BUT CLEARLY COMMUNICATES VIA WRITING DOWN.SHE EATS W/O ANY DIFFICULTY-LIKES LOTS OF SNACKS-LOOKS LIKE GOOD APPETITE.USES BEDPAN, VOIDS OKAY, REPORTS BM EARLIER IN THE DAY.CALLS APPROPRIATELY. WILL CONTINUE WITH POC TILL EOS.
[2019-10-15 05:10] VITALS: BP 131/86
--- NOTE | 2019-10-15 15:32 | NUR ---
ON-GOING ASSESSMENT: CAROL ANN REVIEWED CHART. PT APPEALED HER DISCHARGE BUT [facility] SPOKE WITH CM DEPT AND THEY AGREE WITH TERMINATION OF SERVICES. PT WAS INFORMED BY HER BEDSIDE RN AND THE BEDSIDE RN REPORTED TO CM THAT PATIENT MADE A STATEMENT STATING IF SHE WAS SENT BACK TO HER FACILITY SHE MIGHT KILL HERSELF. CM NOTIFIED ATTENDING AND PSYCH CONSULT WAS PLACED. DR TEMPLETON IS AWARE OF THE CONSULT AND WILL COME BACK TO THE HOSPITAL THIS EVENING AFTER HER OFFICE HOURS TO SEE PATIENT. IF DR. TEMPLETON CLEARS PATIENT FOR DISCHARGE THEN SHE CAN RETURN BACK TO [facility]. CAROL ANN SPOKE WITH CARMELO DOMÍNGUEZ AT [facility] WHO STATES THEY CAN ACCEPT HER LATER TONIGHT IF SHE IS CLEARED AND TO CALL HER ON HER CELL: [phone] AND SHE WILL ARRANGE TRANSPORTATION FOR PATIENT BACK TO FACILITY. BEDSIDE RN WILL HAVE TO FAX DISCHARGE ORDERS TO [facility] FAX: [phone] (CM NOTIFIED BEDSIDE RN). CAROL ANN REQUESTED THAT ATTENDING COMPLETE THE DISCHARGE ORDERS PENDING CLEARANCE FROM DR TEMPLETON SO IF PATIENT IS CLEARED SHE CAN DISCHARGE. CHART COPY WAS ORDERED. CAROL ANN NOTIFIED PATIENTS BROTHER RIGO [phone] OF POSSIBLE DISCHARGE. PT WAS WANTING TO GO TO ANOTHER FACILITY AT DISCHARGE BUT THERE IS NO ACCEPTING FACILITY AT THIS TIME. CAROL ANN NOTIFIED SANG AT [facility] THAT [facility] IS STILL REVIEWING AND THEY CAN CONTINUE TO FOLLOW UP WITH THEM. CAROL ANN ALSO NOTIFIED BEDSIDE RN THAT PT WILL BE RESPONSIBLE FINANCIALLY IF SHE DOES NOT DISCHARGE TODAY DUE TO APPEAL RESULTING IN TERMINATION OF SERVICES.
[2019-10-15 16:07] VITALS: BP 122/81
--- NOTE | 2019-10-15 18:04 | NUR ---
PT A&OX4. IV INTACT IN R HAND. TRACH INTACT REDNESS NOTED. RECIEVING PRN BREATHING TX'S. PEG TUBE INTACT THOUGH NOT BEING USED. TOLERATING MECHANICAL CHOPPED DIET. PT USING BED ROD TO VOID. PLANS ARE FOR PT TO DC BACK TO [facility] TOMORROW THOUGH POSSIBLE TRANSFER TO [facility] IN FUTURE. CALL LIGHT W/I REACH.
[2019-10-15 19:20] VITALS: BP 151/90
--- NOTE | 2019-10-16 03:31 | NUR ---
ASSESSMENT COMPLETED. PT OBSERVED TALKING WITH FAMILY ON VIDEO CHART- SHE OCCASIONALLY SPEAKS OR WRITES HER COMMUNICATION. SHE HAS BEEN ASKING FOR DIFFERENT SNACKS ALL THRO THE SHIFT.SELF SUCTIONS. SHE HAS REQUESTED RT TREATMENTS A FEW TIMES. AFEBRILE. PO PAIN MEDS GIVEN AND SHE ALSO REQUESTED SPECIFICALLY FOR MORPHINE IVP FOR A 9/10 NECK PAIN.CONTINUES TO USE BEDPAN.CALLS FREQUENTLY. FALL PREC IN PLACE.CALL LIGHT WITHIN REACH.
[2019-10-16 05:00] VITALS: BP 146/92
[2019-10-16 07:40] VITALS: BP 126/89
--- NOTE | 2019-10-16 14:00 | NUR ---
DC ORDERS RECIEVED. IV REMOVED FROM R HAND. PT TEARY EYED WHEN INFORMED SHE WILL DC AND RETURN TO [facility], PT WANTED TO GO TO [facility] ROOM NOT AVAILABLE AT THIS TIME. W/C TRANSPORTATION PICKED UP THE PATIENT. REPORT CALLED TO CARE NURSE STATED SHE WILL INFORM MARCIANO OF PT'S PLAN TO GO TO [facility].
== END 2019-10-16 12:32 | DRG 208 ==
LOC: ER 19:05 → EROBS 21:05 → 2N 21:05 → 3W 22:41 → 2N 10-12 03:16 → 4W 10-13 15:06 → 4S 10-13 20:08
PROVIDERS: Emergency Medicine; Nurse Practitioner Family; Pediatrics; ADMIT Internal Medicine; ATTEND Internal Medicine
DX: J96.21 Acute and chronic respiratory failure with hypoxia (principal); J44.1 Chronic obstructive pulmonary disease with (acute) exacerbation; E46 Unspecified protein-calorie malnutrition; F11.20 Opioid dependence, uncomplicated; K63.2 Fistula of intestine; L03.818 Cellulitis of other sites; T81.30XA Disruption of wound, unspecified, initial encounter; M35.1 Other overlap syndromes; E88.01 Alpha-1-antitrypsin deficiency; F41.9 Anxiety disorder, unspecified; Z96.611 Presence of right artificial shoulder joint; Z96.642 Presence of left artificial hip joint; F32.9 Major depressive disorder, single episode, unspecified; K21.9 Gastro-esophageal reflux disease without esophagitis; G89.4 Chronic pain syndrome; I50.9 Heart failure, unspecified; G47.00 Insomnia, unspecified; R13.10 Dysphagia, unspecified; J96.22 Acute and chronic respiratory failure with hypercapnia; D64.9 Anemia, unspecified; I11.0 Hypertensive heart disease with heart failure; F39 Unspecified mood [affective] disorder; Z20.828 Contact with and (suspected) exposure to other viral communicable diseases; F43.20 Adjustment disorder, unspecified; Z86.14 Personal history of Methicillin resistant Staphylococcus aureus infection; Z93.0 Tracheostomy status; Z88.6 Allergy status to analgesic agent; Z88.8 Allergy status to other drugs, medicaments and biological substances; Z87.891 Personal history of nicotine dependence
CPT/HCPCS: 10081; 10102; 10779; 10879